=== PATIENT | male | born 1960 | race Caucasian/White ===

== ENCOUNTER 2023-03-20 12:58 | Inpatient (IN) | payer BC, SELFPAY ==
[2023-03-20] VITALS (21 sets, daily range): BP systolic 117–211; BP diastolic 68–135; PULSE 61–93; RESP 15–23; TEMP 36.5–37; O2SAT 95–99; BMI 35.4
--- NOTE | 2023-03-20 13:28 | PC.NURSE ---
arrived by rashida from formerly [facility]
--- NOTE | 2023-03-20 13:37 | PC.NURSE ---
PT ADMITTED TO 219 DIRECT ADMIT, WILL LET MD TURNER KNOW PT IS HERE
--- NOTE | 2023-03-20 14:04 | CA_ITS ---
APPROVED REPORT EXAM: Comprehensive 2D, Doppler, and color-flow Echocardiogram Network Lead: Jory Morton, RCS, RVS Ht: 5 ft 9 in Wt: 239lbs BSA: 2.23 BP: 193/117 mmHg Rhythm: Atrial Fibrillation Indications: New A-fib, Family HX- HD/COPD, HTN, Chest fullness, Chest pressure/ SOA 2D Dimensions Left Atrium 4.20 cm M: 3.0 - 4.0 M-Mode Dimensions RVDd 2.98 cm (0.9-2.6) LA Diam 4.51 cm (1.9-4.0) LVDd 5.54 cm (3.5-5.7) LVDs 3.02 cm (3.5-5.7) IVSd 1.15 cm (0.6-1.1) PWd 1.24 cm (0.6-1.1) EF (Teich) 55.00% EPSs 0.60 cm FS 45.50% EDV (Teich) 149.90 mL ESV (Teich) 35.60 mL LV Diastology E Decel Time 203 (160-240 msec) E/A Ratio 2.77 MED A' 8.40 cm/s LAT A' 11.90 cm/s Aortic Valve SEJAL Index 0.54 cm2/m2 AoV Peak Sheldon. 113.0 (50-130 cm/s) AO Peak GR. 5.10 mmHg AO Mean GR. 2.50 (<5 mmHg) AO VTI 21.3 (18-25 cm) SEJAL (VTI) 1.23 (2.5-4.5 cm2) Mitral Valve MV A Velocity 31.0 (40-130 cm/s) E/A Ratio 2.77 Tricuspid Valve TR P. Velocity 243.00 cm/s RAP Estimate 10.00 mmHg RVSP 33.60 mmHg Left Ventricle The left ventricle is normal size. The left ventricular systolic function is low normal. There is increased LV wall thickness. There is borderline global hypokinesis present. Diastolic function is indeterminate due to atrial fibrillation. LVEF is 50%. Right Ventricle The right ventricle is mildly to moderately dilated. Right ventricle is mildly hypokinetic. Atria Left atrium is moderately dilated. Right atrium is mildly dilated. There is no Doppler evidence of interatrial shunt. Aortic Valve The aortic valve opens well. There is no aortic valvular stenosis. No aortic regurgitation is present. Mitral Valve The mitral valve is normal in structure. No evidence of mitral valve stenosis. Trace mitral regurgitation. Tricuspid Valve The tricuspid valve leaflets are thin and pliable. Mild tricuspid regurgitation. RVSP is 21 mmHg + RA pressure. Pulmonic Valve The pulmonary valve is normal in structure. Mild pulmonic regurgitation. Great Vessels The aortic root is normal in size. The ascending aorta is normal in size. The IVC is not well-visualized. Pericardium There is no pericardial effusion. Other Information Study Quality: Fair Conclusion Low normal LV systolic function (LVEF 50%). Mild to moderate RV dilation with mild reduction in RV systolic function. Biatrial dilation. Mild TR. Electronically signed by : Casandra Valdez MD 03/20/2023 15:50:37
--- NOTE | 2023-03-20 14:24 | P.CONCA_ITS ---
History of Present Illness History of Present Illness Consult date: 03/20/23 Requesting physician: Kirk Carranza Consult reason: chest pain Chief complaint: Chest pain History of present illness: 62-year-old white male who denies past medical history presented to [facility] emergency department with complaints of chest pain and elevated blood pressure. Patient reports he has not felt well all day which prompted him to check his blood pressure at [facility] which was significantly elevated. Reports mild chest discomfort today. Patient went to PCP office for chest pain and elevated blood pressure and was sent to [facility] emergency department. Upon arrival to emergency department patient was noted to be in A-fib rate controlled at a rate of 70. Patient denies history of confirmed A-fib but reports thinks heart rhythm has been irregular for months. Upon presentation to [facility] emergency department D-dimer was elevated at 618 and high- sensitivity troponin was elevated at 512. Patient was loaded with aspirin and given Lovenox subq and transferred to [facility] for further evaluation for NSTEMI and new onset A-fib. BP remains elevated with systolic > 168. Denies current chest pain or soa. [facility] Disclaimer: The information contained in this section may have been updated after the patient was seen, as this information can be updated by other users. Medical History (Updated 03/20/23 @ 14:48 by Yola Martini APRN) Dupuytren's contracture of both hands Peyronie's disease Social History Smoking Status: Unknown if ever smoked alcohol intake: never current occupational status: employed Travel in the last 8 weeks: Inside the [place] [facility] Review of Systems Constitutional Constitutional: Reports weakness *Cardiovascular Cardiovascular: Reports chest pain *Neurologic Neurologic: Reports weakness Exam Data for Last 24 hours Vital signs and Labs for Last 24 Hours: Temp Pulse Resp BP Pulse Ox O2 Del Method 98.6 F 73 18 168/121 H 99 Room Air 03/20/23 13:43 03/20/23 13:43 03/20/23 13:43 03/20/23 13:43 03/20/23 13:43 03/20/23 13:43 I & O for Last 24 hours: Intake & Output 03/17/23 03/18/23 03/19/23 03/20/23 23:59 23:59 23:59 23:59 Weight 239 lb 8 oz *Routine Cardiovascular Exam Comments: afib, rate controlled 70s Meds Home Medications and Allergies New Prescriptions to Start Prescriptions: Allergies Allergy/AdvReac Type Severity Reaction Status Date / Time No Known Allergies Allergy Verified 03/20/23 14:51 Assessment and Plan *Assessment and plan (1) Chest pain: Status: Acute Category: Medical Code(s): R07.9 - Chest pain, unspecified (2) NSTEMI (non-ST elevated myocardial infarction): Status: Acute Category: Medical Code(s): I21.4 - Non-ST elevation (NSTEMI) myocardial infarction (3) New onset a-fib: Status: Acute Category: Medical Code(s): I48.91 - Unspecified atrial fibrillation (4) HTN (hypertension): Status: Acute Category: Medical Code(s): I10 - Essential (primary) hypertension (5) HLD (hyperlipidemia): Status: Acute Category: Medical Code(s): E78.5 - Hyperlipidemia, unspecified (6) Elevated d-dimer: Status: Acute Category: Medical Code(s): R79.89 - Other specified abnormal findings of blood chemistry Plan Chest pain NSTEMI -High-sensitivity troponin at [facility] ED was 512 -Repeat troponin pending -Will proceed with left heart catheterization 03/21/2023. Discussed risk versus benefits with patient he is agreeable. -Patient was loaded with aspirin and given Lovenox prior to transfer to [facility]. Will continue Lovenox 1 mg/kg twice daily and aspirin 81 mg p.o. daily. Start high-dose statin -Echocardiogram is pending Elevated D-dimer -D-dimer 618.6 -Will obtain CTA of chest to rule out PE New onset A-fib Judah Vascore 1 -currently rate controlled -Will consider V[place]IE cardioversion status post left heart catheterization -Echocardiogram is pending Hypertension -168/121 -Start nitro drip Hyperlipidemia -High-dose statin CV summary 03/20/2023: Start nitroglycerin drip for hypertension. Will proceed with left heart catheterization in the morning to further evaluate NSTEMI. Will consider VIR[place]IE cardioversion after heart catheterization for A-fib. CTA chest pending.
[2023-03-20] MEDS: NITROGLYCERIN IN 5 % DEXTROSE 250 ML 6 MG IV (14:42)
--- NOTE | 2023-03-20 14:51 | CT_ITS ---
PROCEDURE INFORMATION: Exam: CTA Chest With Contrast Exam date and time: 03/20/2023 5:33 PM Age: 62 years old Clinical indication: Pain and abnormal findings; Abnormal diagnostic tests; Elevated d-dimer; Other: Cp; Other: Chest pain; Additional info: Elevate d dimer, chest pain TECHNIQUE: Imaging protocol: Computed tomographic angiography of the chest with contrast. Exam focused on the arteries. 3D rendering (Not supervised by radiologist): MIP and/or 3D reconstructed images were created by the technologist. Radiation optimization: All CT scans at this facility use at least one of these dose optimization techniques: automated exposure control; mA and/or kV adjustment per patient size (includes targeted exams where dose is matched to clinical indication); or iterative reconstruction. Contrast material: ISOVUE 370; Contrast volume: 75 ml; Contrast route: INTRAVENOUS (IV); REPORTING DATA: Count of CT and Cardiac NM exams in prior 12 months: This patient has received 0 known CTs and 0 known cardiac nuclear medicine studies in the 12 months prior to the current study. COMPARISON: No relevant prior studies available. FINDINGS: Pulmonary arteries: No large central pulmonary emboli. Assessment of the small peripheral basilar subsegmental branches was nondiagnostic due to gross respiratory motion in this region. Aorta: Mild aneurysmal dilatation of the ascending aortic segment at 4.3 cm diameter. No dissection or rupture. No mediastinal hematoma. Thyroid: The visualized thyroid gland demonstrates no gross abnormality. Lungs: No acute tracheobronchial abnormalities. No gross pulmonary infiltrates or edema pattern. Mild atelectasis in the lung bases. Noncalcified pulmonary nodule in the posterior right apex series 5, image 20 measuring up to 6.3 mm. 5 mm juxtapleural noncalcified pulmonary nodule lateral right apex series 5, image 33. For patients at low risk (minimal or absent history of smoking and of other known risk factors), recommend CT at 3-6 months, then consider CT at 18-24 months. For patients at high risk (history of smoking or of other known risk factors), recommend CT at 3-6 months, then CT at 18-24 months. (Cami et al., Fleischner Society, 2017). Pleural spaces: No pleural effusion. No pneumothorax. Heart: Mild-moderate cardiomegaly. Mild coronary artery calcification. No pericardial effusion. Lymph nodes: No supraclavicular or axillary adenopathy. No mediastinal or hilar adenopathy. Diaphragm: Small hiatal hernia. Mild mid to distal esophageal wall thickening suspicious for esophagitis. Consider nonemergent esophagram or endoscopic assessment as clinically indicated. Spleen: Granulomatous calcifications in the spleen without acute splenic abnormality. Bones/joints: No acute osseous abnormalities are identified. Mild thoracic spondylosis. Soft tissues: The soft tissues of the chest wall demonstrate no acute abnormality. IMPRESSION: 1. No large central pulmonary emboli. Assessment of the small basilar subsegmental branch vessels was nondiagnostic due to gross respiratory motion in this region. 2. Small hiatal hernia with mild mid to distal esophageal wall thickening suspicious for esophagitis. Consider nonemergent esophagram or endoscopic assessment as clinically indicated. 3. Mild aneurysmal dilatation of the ascending aorta at 4.3 cm diameter. No dissection or rupture. 4. Mild-moderate cardiomegaly with mild coronary artery calcification. 5. There are 2 noncalcified pulmonary nodules, largest 6.3 mm. Please see follow-up recommendations above.
--- NOTE | 2023-03-20 15:00 | PC.NURSE ---
RADIOLOGY CALLED THIS RN AND STATED NEEDED KIDNEY FUNCTION LABS PRIOR TO OBTAINING CT SCAN; THIS RN ORDERED LABS AND WILL AWAIT RESULT AND THEN TAKE PT TO CT SCAN
[2023-03-20 15:10] LABS: Basophils # 0.1 K/mm3 (0-0.2); Basophils % 0.7 % (0.1-2.0); Eosinophils # 0.1 K/mm3 (0.0-0.4); Eosinophils % 1.2 % (0.1-12.0); Hematocrit 46.9 % (42.0-52.0); Hemoglobin 16.3 g/dL (14.1-18.0); Lymphocytes # 2.6 K/mm3 (0.7-4.5); Lymphocytes % 30.2 % (10-50); Mean Corpuscular HGB Conc 34.8 g/dL (31.8-35.4); Mean Corpuscular Hemoglobin 30.6 pg (27.0-31.2); Mean Platelet Volume 8.1 fl (7.4-10.4); Monocytes # 0.4 K/mm3 (0.1-1.0); Monocytes % 4.7 % (1.7-9.3); Neutrophils # 5.4 K/mm3 (1.8-7.8); Neutrophils % 63.2 % (37.0-80.0); Platelet Count 211 K/mm3 (142-424); Red Blood Count 5.33 M/mm3 (4.60-6.20); Red Cell Distribution Width 13.5 % (11.5-17.5); White Blood Count 8.6 K/mm3 (4.8-10.8)
--- NOTE | 2023-03-20 15:10 | ECG_ITS ---
APPROVED REPORT Exam: Resting ECG HR:72 bpm ECG Measurements Heart Rate 72 AXES QRSd 102 QRS -34 QT 419 T 6 QTc 444 Conclusion ATRIAL FIBRILLATION LEFT AXIS DEVIATION [QRS AXIS < -30] LOW QRS VOLTAGE IN PRECORDIAL LEADS [QRS DEFLECTION < 1.0 mV IN CHEST LEADS] INCOMPLETE RIGHT BUNDLE BRANCH BLOCK [90+ ms QRS DURATION, TERMINAL R IN V1/V2, 40+ ms S IN I/aVL/V4/V5/V6] POSSIBLE ANTERIOR MYOCARDIAL INFARCTION , PROBABLY OLD [30 ms Q WAVE IN V3/V4, OR R < 0.2 mV IN V4] ABNORMAL ECG UNCONFIRMED REPORT Electronically signed by : Imtiaz Fernandez MD 03/20/2023 23:02:05
--- NOTE | 2023-03-20 15:13 | P.HP_ITS ---
History of Present Illness *Admission Date: 03/20/23 *Reason for visit:: chest pressure, HTN *History of present illness: Mr. Oliveira is a 62-year-old male on no medications at home. He presented to the ER at [facility] due to complaint of chest pain and elevated blood pressure. He checked his blood pressure at [facility] today and found it to be above the threshold of the kiosk. Reports he has been having some mild chest discomfort today. On arrival to the ER at [place] was found to be in A-fib with a rate controlled in the 60s and 70s. Blood pressure severely elevated. Noted to have elevated troponin. Cardiology and medicine were contacted for transfer for further management. Initial troponin at [place] was 512, D-dimer elevated at 618. Treated with a dose lisinopril, Lasix, Nitropaste at [place]. Loaded with 80 mg of Lovenox and aspirin. Patient accepted for transfer. On arrival, he denies any nausea or vomiting. No shortness of breath. Cardiology consulted to assist with management. Blood pressure elevated on initial vitals at [facility] with systolic above 160. EKG reviewed showing A-fib with rate control [facility] Disclaimer: The information contained in this section may have been updated after the patient was seen, as this information can be updated by other users. Medical History Dupuytren's contracture of both hands Peyronie's disease Social History Smoking Status: Unknown if ever smoked alcohol intake: never current occupational status: employed Travel in the last 8 weeks: Inside the [place] Review of Systems Review of Systems Review of systems (narrative): 14 point review of systems performed, pertinent positives and negatives as per HPI Constitutional Constitutional: Reports weakness *Neurologic Neurologic: Reports weakness Meds Home Medications and Allergies New Prescriptions to Start Prescriptions: Allergies Allergy/AdvReac Type Severity Reaction Status Date / Time No Known Allergies Allergy Verified 03/20/23 14:51 Exam Data for Last 24 hours Vital signs and Labs for Last 24 Hours: Temp Pulse Resp BP Pulse Ox O2 Del Method 98.6 F 73 18 168/121 H 96 Room Air 03/20/23 13:43 03/20/23 13:43 12/27/23 13:43 03/20/23 13:43 03/20/23 14:15 03/20/23 14:47 Laboratory Results - last 24 hr 03/20/23 14:30: WBC 8.6, RBC 5.33, Hgb 16.3, Hct 46.9, MCV 88.0, MCH 30.6, MCHC 34.8, RDW 13.5, Plt Count 211, MPV 8.1, Neut % (Auto) 63.2, Lymph % (Auto) 30.2, [place] % (Auto) 4.7, Eos % (Auto) 1.2, Baso % (Auto) 0.7, Neut # (Auto) 5.4, Lymph # (Auto) 2.6, [place] # (Auto) 0.4, Eos # (Auto) 0.1, Baso # (Auto) 0.1 I & O for Last 24 hours: Intake & Output 03/17/23 03/18/23 03/19/23 03/20/23 23:59 23:59 23:59 23:59 Weight 108.635 kg Constitutional Constitutional: no acute distress, obese and cooperative *Routine HEENT Exam Head: Present normocephalic Eye: Present EOMI and PERRL ENT: Present mucous membranes moist *Routine Neck Exam Neck: Present supple; Absent lymphadenopathy Routine Chest/Breast/Axilla Exam Chest wall: Absent tenderness *Routine Respiratory Exam Respiratory: Present CTA bilaterally *Routine Cardiovascular Exam Cardiovascular: Present irregularly irregular Comments: Rate controlled *Routine Abdominal Exam Abdominal: Present soft and normoactive bowel sounds; Absent tenderness *Routine Rectal Exam Rectal:: deferred *Routine Genitalia Exam Genitalia:: deferred *Routine Extremities Exam Extremities: Absent cyanosis, clubbing or edema *Routine Skin Exam Skin: Present warm; Absent rash *Routine Neurological Exam Neurological: Present alert, oriented X3 and moving all extremities; Absent altered mental status Assessment and Plan *Assessment and plan (1) New onset a-fib: Status: Acute Category: Medical Code(s): I48.91 - Unspecified atrial fibrillation (2) NSTEMI (non-ST elevated myocardial infarction): Status: Acute Category: Medical Code(s): I21.4 - Non-ST elevation (NSTEMI) myocardial infarction (3) Chest pain: Status: Acute Category: Medical Code(s): R07.9 - Chest pain, unspecified (4) HLD (hyperlipidemia): Status: Acute Category: Medical Code(s): E78.5 - Hyperlipidemia, unspecified (5) HTN (hypertension): Status: Acute Category: Medical Code(s): I10 - Essential (primary) hypertension Plan 62-year-old male who presented to [facility] with hypertension and chest discomfort. Found to be in A-fib with NSTEMI. Discussed case with ER physician, requested transfer for cardiology eval and further management. Medicine agreed to admit for further management. Problems addressed as follows: NSTEMI New onset A-fib -Cardiology consulted, appreciate their assistance in care. -Troponin elevated at [place] at 512. Repeat troponin obtained at [facility], elevated at 0.38, 3 and 6-hour troponin pending. EKG obtained showing rate controlled A-fib. Given elevated D-dimer, CTA obtained with no PEs noted. Findings as follows however: Small hiatal hernia with distal esophageal wall thickening. Mild aneurysmal dilatation of ascending aorta at 4.3 cm, no rupture or dissection. Mild to moderate cardiomegaly. Will need further eval with EGD and monitoring of aortic aneurysm. - Echo obtained showing EF 50%, mild to moderate RV dilation with mild reduction in RV systolic function. Biatrial dilatation. -Discussed case with cardiology, recommending left heart cath in the morning on 03/21. -Patient loaded with aspirin and Lovenox at [place]. Will continue Lovenox 1 mg/kg twice daily and aspirin 81 mg daily. -Initiate Lipitor 80 mg daily -Lipid panel pending for the more -A1c and TSH pending Hypertension -168/121, started on nitro drip. Blood pressure showing improvement. Patient developing headache, treated with Tylenol and ibuprofen. If no improvement will consider morphine 2 mg every 4 hours as needed IV, monitor for toxicity Class II obesity complicates all aspects of his care Full code Therapeutic Lovenox Cardiac diet, n.p.o. at midnight
[2023-03-20 15:24] LABS: Troponin I 0.38 ng/ml (0.00-0.034)
[2023-03-20 16:05] LABS: Alanine Aminotransferase 23 U/L (12-78); Albumin Level 4.6 g/dl (3.5-5.0); Albumin/Globulin Ratio 1.5 (1.1-1.8); Alkaline Phosphatase 98 U/L (38-126); Anion Gap 11.8 mEq/L (5-15); Aspartate Amino Transferase 32 U/L (17-59); Bilirubin,Total 0.8 mg/dl (0.2-1.3); Blood Urea Nitrogen 15 mg/dl (9-20); Calcium 8.6 mg/dl (8.4-10.2); Carbon Dioxide 26 mmol/L (22.0-30.0); Chloride 103 mmol/L (98-107); Creatinine Clearance Estimated 108 mL/min (50-200); Estimated Glomerular Filt Rate 68 ml/min (>60); GFR (African American) 82 ML/MIN (>60); Glucose 80 mg/dl (74-100); Potassium 3.8 mmoL/L (3.5-5.1); Sodium 137 mmol/L (136-145); Total Protein,Serum 7.6 g/dl (6.3-8.2)
--- NOTE | 2023-03-20 16:18 | HMH.PHAINT1 ---
Pharmacy Intervention Comments: Spoke with patient and daughter at bedside to verify home med list, patient states he does not take anything at home.
[2023-03-20] MEDS: ACETAMINOPHEN 325MG TAB 650 MG PO (16:45)
[2023-03-20] MEDS: 0.9 % SODIUM CHLORIDE 50 ML VIAL IV (17:33)
[2023-03-20] MEDS: IOPAMIDOL-370 (76%);100ML BOTTLE 75 ML IV (17:34)
[2023-03-20] MEDS: SODIUM CHLORIDE 0.9% 10ML SYR (RAD ONLY) 10 ML IV (17:34)
[2023-03-20] MEDS: IBUPROFEN 600 MG TABLET PO (17:44)
[2023-03-20] MEDS: MORPHINE 2MG/ML SYRINGE 2 MG IV (18:57)
[2023-03-20] MEDS: ONDANSETRON 4MG/2ML VIAL 4 MG IV (19:01)
[2023-03-20] MEDS: ENOXAPARIN 120MG/0.8ML SYRINGE 110 MG SQ (20:18)
[2023-03-20] MEDS: ATORVASTATIN 40MG TABLET 80 MG PO (20:18)
--- NOTE | 2023-03-20 21:12 | PC.NURSE ---
Nitro gtt paused at this time due to BP 117/68
[2023-03-20 21:21] LABS: Troponin I 0.26 ng/ml (0.00-0.034)
[2023-03-21] VITALS (27 sets, daily range): BP systolic 114–163; BP diastolic 74–104; PULSE 55–86; RESP 16–24; TEMP 36.4–36.8; O2SAT 92–98; BMI 35.5
--- NOTE | 2023-03-21 07:16 | IR_ITS ---
APPROVED REPORT Patient Location: Inpatient PROCEDURES Left heart catheterization Left ventriculogram Selective coronary angiogram INDICATION Acute non-ST elevation myocardial infarction Informed consent was obtained prior to the procedure. COMPLICATIONS NONE Estimated Blood Loss: LESS THAN 10 ML TECHNIQUE One percent lidocaine used to anesthetize the right anterior aspect of the wrist. The right radial artery was accessed via the Seldinger technique. A 6 Citizen Of [place] sheath was placed in the right radial artery. 2.5 mg of Verapamil, 800 mcg of nitroglycerin, 1mg Lidocaine and 5000 U Heparin were given through the arterial sheath. The papa catheter was also used to perform left heart catheterization, left ventriculogram and selective coronary angiogram. At the end of the procedure the sheath was removed good hemostasis was achieved using Traclet band, patient was transferred to the postop holding area in stable condition. ANGIOGRAPHIC RESULTS The left main artery Has a distal 60 to 70% stenosis The left anterior descending artery Has a proximal focal concentric 90% stenosis. The mid LAD has additional 40% stenoses. A small to medium sized first diagonal artery has a proximal 80% stenosis The circumflex artery Is dominant and has an ostial 70% followed by a concentric proximal 90% stenosis. Distal to the first obtuse marginal artery there is an additional 80% stenosis. The terminal obtuse marginal artery has proximal 70% stenosis The right coronary artery Vestigial with diffuse 70% stenoses The RAE ventriculogram reveals Normal 65% The left ventricular end-diastolic pressure 10 to 15 mmHg IMPRESSION Critical coronary disease as described above Normal ejection fraction Normal LVEDP PLAN 1. Start on high intensity statin along with aspirin 81 mg daily 2. Heparin drip to be started and continued throughout the preoperative course 3. Rate control starting low-dose beta-blockers 4. Recommend nitroglycerin drip for blood pressure control 5. Transfer to [facility] for coronary artery bypass surgery and Maze procedure 6. I have already made contact with CT surgery [facility] and transfer plans are currently underway Electronically signed by : Zbigniew Torres MD 03/21/2023 13:02:45
[2023-03-21 07:18] LABS: Basophils % 0.5 % (0.1-2.0); Eosinophils # 0.1 K/mm3 (0.0-0.4); Eosinophils % 1.3 % (0.1-12.0); Hematocrit 43.9 % (42.0-52.0); Hemoglobin 15.2 g/dL (14.1-18.0); Lymphocytes # 2.4 K/mm3 (0.7-4.5); Lymphocytes % 33.3 % (10-50); Mean Corpuscular HGB Conc 34.6 g/dL (31.8-35.4); Mean Corpuscular Hemoglobin 31.1 pg (27.0-31.2); Mean Corpuscular Volume 89.9 fl (80-94); Mean Platelet Volume 7.9 fl (7.4-10.4); Monocytes # 0.5 K/mm3 (0.1-1.0); Monocytes % 6.2 % (1.7-9.3); Neutrophils # 4.3 K/mm3 (1.8-7.8); Neutrophils % 58.8 % (37.0-80.0); Platelet Count 167 K/mm3 (142-424); Red Blood Count 4.89 M/mm3 (4.60-6.20); Red Cell Distribution Width 13.7 % (11.5-17.5); White Blood Count 7.3 K/mm3 (4.8-10.8)
[2023-03-21 07:23] LABS: Chloride 102 mmol/L (98-107); Potassium 3.6 mmoL/L (3.5-5.1); Sodium 139 mmol/L (136-145)
[2023-03-21 07:26] LABS: Alanine Aminotransferase 21 U/L (12-78); Albumin Level 4.1 g/dl (3.5-5.0); Albumin/Globulin Ratio 1.4 (1.1-1.8); Alkaline Phosphatase 83 U/L (38-126); Anion Gap 10.6 mEq/L (5-15); Aspartate Amino Transferase 31 U/L (17-59); Bilirubin,Total 0.8 mg/dl (0.2-1.3); Blood Urea Nitrogen 16 mg/dl (9-20); Calcium 8.4 mg/dl (8.4-10.2); Carbon Dioxide 30 mmol/L (22.0-30.0); Cholesterol 238 mg/dl (140-200); Creatinine Clearance Estimated 99 mL/min (50-200); Estimated Glomerular Filt Rate 62 ml/min (>60); GFR (African American) 74 ML/MIN (>60); Globulin 2.9 g/dL (1.3-3.2); Glucose 88 mg/dl (74-100); HDL Cholesterol 40 mg/dl (40-60); Triglycerides 284 mg/dl (30-150); VLDL Cholesterol 57 mg/dL (0-40)
[2023-03-21 07:27] LABS: Magnesium 2.4 mg/dl (1.6-2.3)
[2023-03-21 07:36] LABS: Direct LDL Cholesterol 127.67 mg/dL (100-129)
[2023-03-21 07:56] LABS: Thyroid Stimulating Hormone 0.89 uIU/mL (0.465-4.68)
[2023-03-21] MEDS: ASPIRIN EC 81MG TABLET 81 MG PO (08:12)
--- NOTE | 2023-03-21 09:09 | P.PN_ITS ---
Subjective Subjective Date: 03/21/23 Time: 08:15 Principal diagnosis: nstemi, afib Interval history: Patient doing well this morning. Denies chest pain or shortness of breath. Blood pressure is 134/81 patient is currently off nitro drip. Morning labs reviewed, echocardiogram reviewed. Patient remains in A-fib rate controlled in the 60s. Exam Data for Last 24 hours Vital signs and Labs for Last 24 Hours: Temp Pulse Resp BP Pulse Ox O2 Del Method 97.9 F 61 18 134/81 98 Room Air 03/21/23 08:00 03/21/23 07:30 03/21/23 07:30 03/21/23 07:30 03/21/23 07:30 03/21/23 07:30 Laboratory Results - last 24 hr 03/20/23 14:30: WBC 8.6, RBC 5.33, Hgb 16.3, Hct 46.9, MCV 88.0, MCH 30.6, MCHC 34.8, RDW 13.5, Plt Count 211, MPV 8.1, Neut % (Auto) 63.2, Lymph % (Auto) 30.2, [place] % (Auto) 4.7, Eos % (Auto) 1.2, Baso % (Auto) 0.7, Neut # (Auto) 5.4, Lymph # (Auto) 2.6, [place] # (Auto) 0.4, Eos # (Auto) 0.1, Baso # (Auto) 0.1, Sodium 137, Potassium 3.8, Chloride 103, Carbon Dioxide 26, Anion Gap 11.8, BUN 15, Creatinine 1.10, Estimated Creat Clear 108, Estimated GFR 68, Est GFR ( Amer) 82, Glucose 80, Calcium 8.6, Total Bilirubin 0.8, AST 32, ALT 23, Alkaline Phosphatase 98, Troponin I 0.38 H, Total Protein 7.6, Albumin 4.6, Globulin 3.0, Albumin/Globulin Ratio 1.5 03/20/23 17:53: Troponin I 0.30 H 03/20/23 20:15: Troponin I 0.26 H 03/21/23 06:23: WBC 7.3, RBC 4.89, Hgb 15.2, Hct 43.9, MCV 89.9, MCH 31.1, MCHC 34.6, RDW 13.7, Plt Count 167, MPV 7.9, Neut % (Auto) 58.8, Lymph % (Auto) 33.3, [place] % (Auto) 6.2, Eos % (Auto) 1.3, Baso % (Auto) 0.5, Neut # (Auto) 4.3, Lymph # (Auto) 2.4, [place] # (Auto) 0.5, Eos # (Auto) 0.1, Baso # (Auto) 0.0, Sodium 139, Potassium 3.6, Chloride 102, Carbon Dioxide 30, Anion Gap 10.6, BUN 16, Creatinine 1.20, Estimated Creat Clear 99, Estimated GFR 62, Est GFR ( Amer) 74, Glucose 88, Hemoglobin A1c 5.0, Calcium 8.4, Magnesium 2.4 H, Total Bilirubin 0.8, AST 31, ALT 21, Alkaline Phosphatase 83, Total Protein 7.0, Albumin 4.1 D, Globulin 2.9, Albumin/Globulin Ratio 1.4, Triglycerides 284 H, Cholesterol 238 H, LDL Cholesterol Direct 127.67, VLDL Cholesterol 57 H, HDL Cholesterol 40, Cholesterol/HDL Ratio 6.0 H, TSH 0.89 I & O for Last 24 hours: Intake & Output 03/18/23 03/19/23 03/20/23 03/21/23 23:59 23:59 23:59 23:59 Intake Total 307.950 / 307.950 Output Total 0 / 0 0 / 0 Balance 307.950 / 307.950 0 / 0 Weight 239 lb 8 oz 239 lb 14.4 oz Constitutional Constitutional: no acute distress *Routine Respiratory Exam Respiratory: Present CTA bilaterally and symmetric chest movement *Routine Cardiovascular Exam Cardiovascular: Present Normal S1, Normal S2, irregular rhythm and irregularly irregular *Routine Abdominal Exam Abdominal: Present soft and normoactive bowel sounds; Absent tenderness *Routine Extremities Exam Extremities: Present full ROM and normal capillary refill; Absent edema *Routine Skin Exam Skin: Present intact, dry and warm Detailed Neck Exam: Thyroids Thyroid: Absent bruit Progress Note: A&P Assessment and plan (1) New onset a-fib: Status: Acute (2) NSTEMI (non-ST elevated myocardial infarction): Status: Acute (3) Chest pain: Status: Acute (4) HLD (hyperlipidemia): Status: Acute (5) HTN (hypertension): Status: Acute Assessment and Plan Assessment and Plan for All Diagnoses:: Chest pain NSTEMI -High-sensitivity troponin at [facility] ED was 512 -Repeat troponin at [facility] peaked at0.38 -Will proceed with left heart catheterization today. Discussed risk versus benefits with patient he is agreeable. -Patient was loaded with aspirin and given Lovenox prior to transfer to [facility]. Will continue Lovenox 1 mg/kg twice daily and aspirin 81 mg p.o. daily. Continue high-dose statin -Echocardiogram 03/20/2023: Low normal LV systolic function EF 50%, mild to moderate RV dilation with mild reduction in RV systolic function, biatrial dilation, mild to Elevated D-dimer -D-dimer 618.6 -CTA: No large central pulmonary emboli. Assessment of the small basilar subsegmental branch vessels was nondiagnostic due to gross respiratory motion in this region. Currently receiving Lovenox at 1 mg/kg twice daily. New onset A-fib [place] Vascore 1 -currently rate controlled -Will consider [place] cardioversion status post left heart catheterization Hypertension-improving -130/84 -Currently off nitro drip Hyperlipidemia -High-dose statin CV summary 03/20/2023: We will proceed with left heart catheterization today for evaluation of NSTEMI.
[2023-03-21] MEDS: HEPARIN 1,000 UNITS/ML 10ML VIAL (CATH LAB) 10000 UNIT IV (12:32)
[2023-03-21] MEDS: LIDOCAINE 1% 10ML MDV 20 ML IJ (12:32)
[2023-03-21] MEDS: HEPARIN 1,000 UNITS/500ML NS (CATH LAB) 3000 UNIT IV (12:32)
[2023-03-21] MEDS: diphenhydrAMINE 50MG/ML VIAL 50 MG IV (12:32)
[2023-03-21] MEDS: NITROGLYCERIN 800MCG/8ML SYR (CATH LAB) 800 MCG IA (12:32)
[2023-03-21] MEDS: 0.9 % SODIUM CHLORIDE 500 ML 25 ML IV (12:32)
[2023-03-21] MEDS: VERAPAMIL 2.5MG/ML 2ML VIAL 2.5 MG IV (12:33)
[2023-03-21] MEDS: FENTANYL 100MCG/2ML VIAL 50 MCG IV (12:40)
[2023-03-21] MEDS: MIDAZOLAM HCL 1MG/1ML 5ML VIAL 1 MG IV (12:40)
--- NOTE | 2023-03-21 12:54 | PC.NURSE ---
RECEIVED REPORT FROM MIKE SWEENEY IN THE [employer]
--- NOTE | 2023-03-21 13:05 | PC.NURSE ---
[id number] notified by roofing laborer that pt is to be shipped to for CABG. Dr Lilly is accepting. Called and notified Yola in cardiology that pt is to be transferred, per Yola cancel ariana with cardioversion.
--- NOTE | 2023-03-21 13:07 | PC.NURSE ---
[id number] hold tammy alvarez
[2023-03-21] MEDS: IOPAMIDOL-370 (76%);100ML BOTTLE 50 ML IV (13:08)
--- NOTE | 2023-03-21 13:24 | EXP.DC.SUM ---
General Admission date:: 03/20/23 Discharge date: 03/21/23 HPI HPI HPI: Mr. Oliveira is a 62-year-old male on no medications at home. He presented to the ER at [facility] due to complaint of chest pain and elevated blood pressure. He checked his blood pressure at [facility] today and found it to be above the threshold of the kiosk. Reports he has been having some mild chest discomfort today. On arrival to the ER at [place] was found to be in A-fib with a rate controlled in the 60s and 70s. Blood pressure severely elevated. Noted to have elevated troponin. Cardiology and medicine were contacted for transfer for further management. Initial troponin at [place] was 512, D-dimer elevated at 618. Treated with a dose lisinopril, Lasix, Nitropaste at [place]. Loaded with 80 mg of Lovenox and aspirin. Patient accepted for transfer. On arrival, he denies any nausea or vomiting. No shortness of breath. Cardiology consulted to assist with management. Blood pressure elevated on initial vitals at [facility] with systolic above 160. EKG reviewed showing A-fib with rate control Hospital Course Hospital Course Hospital Course: 62-year-old male who presented to [facility] with hypertension and chest discomfort. Found to be in A-fib with NSTEMI. Discussed case with ER physician, requested transfer for cardiology eval and further management. Medicine agreed to admit for further management. Taken for left heart cath on 03/21. Found to have critical two-vessel disease. Necessitate transfer to higher level of care for CABG. excepted patient. Problems addressed during hospitalization as follows: NSTEMI New onset A-fib Hypertension CAD -Cardiology consulted, appreciate their assistance in care. Troponin elevated at [place] at 512. Repeat troponin obtained at [facility], elevated at 0.38 on admission. Trended down to 0.26 by 6-hour troponin. EKG obtained showing rate controlled A-fib. Was started on nitroglycerin drip due to hypertension. Patient was taken for left heart cath on 03/21 with the following findings: IMPRESSION Critical coronary disease as described above Normal ejection fraction Normal LVEDP Patient was initiated on heparin drip and resume nitroglycerin drip. Cardiology consulted CT surgery at for assistance in care. Patient to be transferred for further management including CABG and possible maze procedure. Continued on high intensity statin and aspirin. Given elevated D-dimer, CTA obtained with no PEs noted. Findings as follows however: Small hiatal hernia with distal esophageal wall thickening. Mild aneurysmal dilatation of ascending aorta at 4.3 cm, no rupture or dissection. Mild to moderate cardiomegaly. Will need further eval with EGD and monitoring of aortic aneurysm. Echo obtained showing EF 50%, mild to moderate RV dilation with mild reduction in RV systolic function. Biatrial dilatation. Lipid panel obtained during admission showing LDL of 127. A1c obtained at 5.0 and TSH is 0.89. Patient stable for discharge to for further management with CT surgery. Necessitating CABG. Appreciate 's assistance in care. Spent 40 minutes in discharge counseling, documentation, discussion with subspecialist, and direct care with patient. Exam Data for Last 24 hours Vital signs and Labs for Last 24 Hours: Temp Pulse Resp BP Pulse Ox O2 Del Method 97.9 F 70 20 147/101 H 94 L Room Air 03/21/23 11:38 03/21/23 13:05 03/21/23 13:05 03/21/23 13:05 03/21/23 13:05 03/21/23 13:05 Laboratory Results - last 24 hr 03/20/23 14:30: WBC 8.6, RBC 5.33, Hgb 16.3, Hct 46.9, MCV 88.0, MCH 30.6, MCHC 34.8, RDW 13.5, Plt Count 211, MPV 8.1, Neut % (Auto) 63.2, Lymph % (Auto) 30.2, [place] % (Auto) 4.7, Eos % (Auto) 1.2, Baso % (Auto) 0.7, Neut # (Auto) 5.4, Lymph # (Auto) 2.6, [place] # (Auto) 0.4, Eos # (Auto) 0.1, Baso # (Auto) 0.1, Sodium 137, Potassium 3.8, Chloride 103, Carbon Dioxide 26, Anion Gap 11.8, BUN 15, Creatinine 1.10, Estimated Creat Clear 108, Estimated GFR 68, Est GFR ( Amer) 82, Glucose 80, Calcium 8.6, Total Bilirubin 0.8, AST 32, ALT 23, Alkaline Phosphatase 98, Troponin I 0.38 H, Total Protein 7.6, Albumin 4.6, Globulin 3.0, Albumin/Globulin Ratio 1.5 03/20/23 17:53: Troponin I 0.30 H 03/20/23 20:15: Troponin I 0.26 H 03/21/23 06:23: WBC 7.3, RBC 4.89, Hgb 15.2, Hct 43.9, MCV 89.9, MCH 31.1, MCHC 34.6, RDW 13.7, Plt Count 167, MPV 7.9, Neut % (Auto) 58.8, Lymph % (Auto) 33.3, [place] % (Auto) 6.2, Eos % (Auto) 1.3, Baso % (Auto) 0.5, Neut # (Auto) 4.3, Lymph # (Auto) 2.4, [place] # (Auto) 0.5, Eos # (Auto) 0.1, Baso # (Auto) 0.0, Sodium 139, Potassium 3.6, Chloride 102, Carbon Dioxide 30, Anion Gap 10.6, BUN 16, Creatinine 1.20, Estimated Creat Clear 99, Estimated GFR 62, Est GFR ( Amer) 74, Glucose 88, Hemoglobin A1c 5.0, Calcium 8.4, Magnesium 2.4 H, Total Bilirubin 0.8, AST 31, ALT 21, Alkaline Phosphatase 83, Total Protein 7.0, Albumin 4.1 D, Globulin 2.9, Albumin/Globulin Ratio 1.4, Triglycerides 284 H, Cholesterol 238 H, LDL Cholesterol Direct 127.67, VLDL Cholesterol 57 H, HDL Cholesterol 40, Cholesterol/HDL Ratio 6.0 H, TSH 0.89 I & O for Last 24 hours: Intake & Output 03/18/23 03/19/23 03/20/23 03/21/23 23:59 23:59 23:59 23:59 Intake Total 307.950 / 307.950 Output Total 0 / 0 0 / 0 Balance 307.950 / 307.950 0 / 0 Weight 108.635 kg 108.817 kg Constitutional Constitutional: no acute distress and obese *Routine HEENT Exam Head: Present normocephalic Eye: Present EOMI and PERRL ENT: Present mucous membranes moist *Routine Neck Exam Neck: Present supple; Absent lymphadenopathy *Routine Respiratory Exam Respiratory: Present CTA bilaterally *Routine Cardiovascular Exam Cardiovascular: Present irregularly irregular Comments: rate controlled *Routine Abdominal Exam Abdominal: Present soft and normoactive bowel sounds; Absent tenderness *Routine Extremities Exam Extremities: Absent cyanosis, clubbing or edema *Routine Skin Exam Skin: Present warm; Absent rash *Routine Neurological Exam Neurological: Present alert, oriented X3 and moving all extremities; Absent altered mental status Results Data Completed and Pending Labs on day of discharge: Labs from last 24 hours 03/21/23 03/20/23 03/20/23 06:23 20:15 17:53 WBC 7.3 RBC 4.89 Hgb 15.2 Hct 43.9 MCV 89.9 MCH 31.1 MCHC 34.6 RDW 13.7 Plt Count 167 MPV 7.9 Neut % (Auto) 58.8 Lymph % (Auto) 33.3 [place] % (Auto) 6.2 Eos % (Auto) 1.3 Baso % (Auto) 0.5 Neut # (Auto) 4.3 Lymph # (Auto) 2.4 [place] # (Auto) 0.5 Eos # (Auto) 0.1 Baso # (Auto) 0.0 Sodium 139 Potassium 3.6 Chloride 102 Carbon Dioxide 30 Anion Gap 10.6 BUN 16 Creatinine 1.20 Estimated Creat Clear 99 Estimated GFR 62 Est GFR ( Amer) 74 Glucose 88 Hemoglobin A1c 5.0 Calcium 8.4 Magnesium 2.4 H Total Bilirubin 0.8 AST 31 ALT 21 Alkaline Phosphatase 83 Troponin I 0.26 H 0.30 H Total Protein 7.0 Albumin 4.1 D Globulin 2.9 Albumin/Globulin Ratio 1.4 Triglycerides 284 H Cholesterol 238 H LDL Cholesterol Direct 127.67 VLDL Cholesterol 57 H HDL Cholesterol 40 Cholesterol/HDL Ratio 6.0 H TSH 0.89 03/20/23 14:30 WBC 8.6 RBC 5.33 Hgb 16.3 Hct 46.9 MCV 88.0 MCH 30.6 MCHC 34.8 RDW 13.5 Plt Count 211 MPV 8.1 Neut % (Auto) 63.2 Lymph % (Auto) 30.2 [place] % (Auto) 4.7 Eos % (Auto) 1.2 Baso % (Auto) 0.7 Neut # (Auto) 5.4 Lymph # (Auto) 2.6 [place] # (Auto) 0.4 Eos # (Auto) 0.1 Baso # (Auto) 0.1 Sodium 137 Potassium 3.8 Chloride 103 Carbon Dioxide 26 Anion Gap 11.8 BUN 15 Creatinine 1.10 Estimated Creat Clear 108 Estimated GFR 68 Est GFR ( Amer) 82 Glucose 80 Hemoglobin A1c Calcium 8.6 Magnesium Total Bilirubin 0.8 AST 32 ALT 23 Alkaline Phosphatase 98 Troponin I 0.38 H Total Protein 7.6 Albumin 4.6 Globulin 3.0 Albumin/Globulin Ratio 1.5 Triglycerides Cholesterol LDL Cholesterol Direct VLDL Cholesterol HDL Cholesterol Cholesterol/HDL Ratio TSH DS: Diagnosis Discharge Diagnosis (1) New onset a-fib: Status: Acute Code(s): I48.91 - Unspecified atrial fibrillation (2) NSTEMI (non-ST elevated myocardial infarction): Status: Acute Code(s): I21.4 - Non-ST elevation (NSTEMI) myocardial infarction (3) Chest pain: Status: Acute Code(s): R07.9 - Chest pain, unspecified (4) HLD (hyperlipidemia): Status: Acute Code(s): E78.5 - Hyperlipidemia, unspecified (5) HTN (hypertension): Status: Acute Code(s): I10 - Essential (primary) hypertension (6) CAD (coronary artery disease): Status: Acute Code(s): I25.10 - Atherosclerotic heart disease of [place] coronary artery without angina pectoris Meds Home Medications and Allergies Home Medications Medication Instructions Recorded Confirmed Type IV with Additives 1,400 units/hr IV 03/21/23 Rx IV with Additives 5 mcg/min IV 03/21/23 Rx aspirin 81 mg tablet,delayed 81 mg PO DAILY #0 tabs 03/21/23 Rx release atorvastatin 40 mg tablet 80 mg PO HS #0 tabs 03/21/23 Rx New Prescriptions to Start Prescriptions: IV with Additives Heparin Sodium,Porcine/D5w [Heparin 25,000 units in D5W 500mL premix] 500 ml 1,400 units/hr IV IV with Additives Nitroglycerin in 5 % Dextrose [Nitroglycerin 50mg/250mL D5W] 250 ml 5 mcg/min IV Allergies Allergy/AdvReac Type Severity Reaction Status Date / Time No Known Allergies Allergy Verified 03/20/23 14:51 Discharge Plan Disposition Patient Disposition: Xfer Short-Term Hosp Condition: Serious Follow up Plan Prescriptions/Medication Reconciliation: New aspirin 81 mg Tablet,Delayed Release (Dr/Ec) 81 mg PO DAILY Qty: 0 0RF atorvastatin 40 mg Tablet 80 mg PO HS Qty: 0 0RF IV with Additives Heparin Sodium,Porcine/D5w [Heparin 25,000 units in D5W 500mL premix] 500 ML 1400 units/hr IV Ordered By: Kirk Carranza MD Last Taken: 03/21/23 13:56 28 mls/hr IV with Additives Nitroglycerin in 5 % Dextrose [Nitroglycerin 50mg/250mL D5W] 250 ML 5 mcg/min IV Ordered By: Kirk Carranza MD Last Taken: 03/21/23 13:25 1.5 mls/hr Protocol: Nitroglycerin IV drip Condition: Initial dose Dose/Route: 5 mcg/min Instruction: 1.5 ml/hr Condition: Titrate by: Dose/Route: 5 mcg/min (1.5ml/hr) Instruction: Every 3 to 5 min Condition: @20mcg/min, Titrate by: Dose/Route: 10mcg/min (3ml/hr) Instruction: Every 3 to 5 min Condition: Maximum dose Dose/Route: 200 mcg/min Instruction: 60 ml/hr Protocol Text: Conc.= 200 mcg/ml Desired Titration Parameters SBP<140 Problem Reconciliation Problems Reviewed?: Yes Patient Discharge Instructions ACTIVITY: Bed rest DIET: low fat, low cholesterol Patient Instructions: DI for Heart Attack, Atrial Fibrillation, DI for Cardiac Catheterization, DI for Surgical Site Infection, DI for Chest Pain, Surgical Site Infection, Moderate Sedation, DI for Post-Surgical Bleeding Providers Primary Care Provider: Maksim Collier Provider: Kirk Carranza Attending Provider: Kirk Carranza
[2023-03-21] MEDS: NITROGLYCERIN IN 5 % DEXTROSE 250 ML 1.5 MG IV (13:25)
--- OUTSIDE RECORDS SUMMARY | 2023-03-21 13:30 | XMS_ITS | Continuity of Care Document ---
Author Name Unknown Address [address] [place] [id number] Organization [facility] Phone Care Team Providers Care [employer] Inspector Name Role Phone DARSHAN RAMIREZ Primary Attending DARSHAN RAMIREZ Admitting JOVANNI MARTINEZ Primary Care DARSHAN RAMIREZ Unavailable ALLERGIES AND ADVERSE REACTIONS ALLERGIES AND ADVERSE REACTIONS Code System Allergy Substance Adverse Reaction Date Reaction (Severity) Comment Status Reported By Updated By No Known Allergies [id number] on March 20, 2023 3:08:48 PM UTC RESULTS Patient: TYLER Giordano Date of : 1960 3 LABORATORY RESULTS ORDER 100: CBC AUTO W DIFF ( LOINC: 52827-8) ORDER DATE: March 20, 2023 3:17:00 PM UTC Specimen Source: Whole Blood PERFORMING LAB: [address] [id number] Result Comment: Final Result Date: March 20, 2023 3:36:00 PM UTC (TECH: MRB) LOINC TEST FLAG RESULT REFERENCE RANGE UPDA WING BY 6690-2 Leukocytes [#/volume] in Blood by Automated count N 6.5 10^3/uL 4.5 10^3/uL - 11.5 10^3/uL March 20, 2023 3:36:00 PM UTC (TECH: MRB) 789-8 Erythrocytes [#/volume] in Blood by Automated count N 5.00 10^6/uL 4.25 10^6/uL - 5.57 10^6/uL March 20, 2023 3:36:00 PM UTC (TECH: MRB) 718-7 Hemoglobin [Mass/volume] in Blood N 14.9 g/dL 13.5 g/dL - 17.2 g/dL March 20, 2023 3:36:00 PM UTC (TECH: MRB) 49733-1 Hematocrit [Volume Fraction] of Blood N 43.5 % 42.0 % - 52.0 % March 20, 2023 3:36:00 PM UTC (TECH: MRB) 787-2 Erythrocyte mean corpuscular volume [Entitic volume] by Automated count N 87.0 fl 80 fl - 95 fl March 20, 2023 3:36:00 PM UTC (TECH: MRB) 70579-4 Erythrocyte mean corpuscular hemoglobin [Entitic mass] in Blood from Fetus by Automated count N 29.8 pg 27.0 pg - 34.0 pg March 20, 2023 3:36:00 PM UTC (TECH: MRB) 02700-0 Erythrocyte mean corpuscular hemoglobin concentration [Mass/volume] in Blood from Fetus by Automated count N 34.3 g/dL 32.0 g/dL - 36.0 g/dL March 20, 2023 3:36:00 PM UTC (TECH: MRB) 54940-8 Platelets [#/volume] in Blood N 191 10^3/uL 150 10^3/uL - 450 10^3/uL March 20, 2023 3:36:00 PM UTC (TECH: MRB) 45621-3 Erythrocyte distribution width [Ratio] N 12.4 % 12.3 % - 15.1 % March 20, 2023 3:36:00 PM UTC (TECH: MRB) 36930-5 Platelet mean volume [Entitic volume] in Blood by Automated count N 9.7 fl 7.4 fl - 10.4 fl March 20, 2023 3:36:00 PM UTC (TECH: MRB) 74786-3 Granulocytes/100 leukocytes in Blood by Automated count N 56.6 % 40 % - 75 % March 20, 2023 3:36:00 PM UTC (TECH: MRB) 736-9 Lymphocytes/100 leukocytes in Blood by Automated count N 35.2 % 15 % - 57 % March 20, 2023 3:36:00 PM UTC (TECH: MRB) 5905-5 Monocytes/100 leukocytes in Blood by Automated count N 6.0 % 4.0 % - 12.0 % March 20, 2023 3:36:00 PM UTC (TECH: MRB) 713-8 Eosinophils/100 leukocytes in Blood by Automated count N 1.4 % 0.0 % - 4.0 % March 20, 2023 3:36:00 PM UTC (TECH: MRB) 706-2 Basophils/100 leukocytes in Blood by Automated count N 0.6 % 0.0 % - 1.0 % March 20, 2023 3:36:00 PM UTC (TECH: MRB) 06135-2 Immature granulocytes [#/volume] in Blood N 0.2 % 0.0 % - 0.8 % March 20, 2023 3:36:00 PM UTC (TECH: MRB) 28768-2 Granulocytes [#/volume] in Blood by Automated count N 3.66 10^3/uL March 20, 2023 3:36:00 PM UTC (TECH: MRB) 731-0 Lymphocytes [#/volume] in Blood by Automated count N 2.28 10^3/uL March 20, 2023 3:36:00 PM UTC (TECH: MRB) 742-7 Monocytes [#/volume] in Blood by Automated count N 0.39 10^3/uL March 20, 2023 3:36:00 PM UTC (TECH: MRB) 711-2 Eosinophils [#/volume] in Blood by Automated count N 0.09 10^3/uL March 20, 2023 3:36:00 PM UTC (TECH: MRB) 704-7 Basophils [#/volume] in Blood by Automated count N 0.04 10^3/uL March 20, 2023 3:36:00 PM UTC (TECH: MRB) 75034-1 Immature granulocytes [#/volume] in Blood N 0.01 10^3/uL March 20, 2023 3:36:00 PM UTC (TECH: MRB) 16041-6 Manual differential performed [Presence] in Blood N NO March 20, 2023 3:36:00 PM UTC (TECH: MRB) ORDER 200: COMP METABOLIC PA ALYCE (LOINC: 53984-1) ORDER DATE: March 20, 2023 3:17:00 PM UTC Specimen Source: Plasma PERFORMING LAB: [address] [id number] Result Comment: Final Result Date: March 20, 2023 3:56:00 PM UTC (TECH: MRB) LOINC TEST FLAG RESULT REFERENCE RANGE UPDA WING BY 2951-2 Sodium [Moles/volume ] in Serum or Plasma N 139 mmol/L 136 mmol/L - 145 mmol/L March 20, 2023 3:56:00 PM UTC (TECH: MRB) 2823-3 Potassium [Moles/volume] in Serum or Plasma N 3.9 mmol/L 3.5 mmol/L - 5.1 mmol/L March 20, 2023 3:56:00 PM UTC (TECH: MRB) 5-0 Chloride [Moles/volu me] in Serum or Plasma N 103 mmol/L 98 mmol/L - 107 mmol/L March 20, 2023 3:56:00 PM UTC (TECH: MRB) 2027-9 Carbon dioxide, tota l [Moles/volume] in Serum or Plasma N 27 mmol/L 21 mmol/L - 32 mmol/L March 20, 2023 3:56:00 PM UTC (TECH: MRB) 51876-1 Anion gap 3 in Serum or Plasma N 9.0 March 20, 2023 3:56:00 PM UTC (TECH: MRB) 2345-7 Glucose [Mass/volume ] in Serum or Plasma N 86 mg/dL 70 mg/dL - 110 mg/dL March 20, 2023 3:56:00 PM UTC (TECH: MRB) 3094-0 Urea nitrogen [Mass/volume] in Serum or Plasma N 14 mg/dL 7 mg/dL - 18 mg/dL March 20, 2023 3:56:00 PM UTC (TECH: MRB) 2160-0 Creatinine [Mass/volume] in Serum or Plasma N 1.2 mg/dL 0.8 mg/dL - 1.3 mg/dL March 20, 2023 3:56:00 PM UTC (TECH: MRB) 3097-3 Urea nitrogen/Creatinine [Mass Ratio] in Serum or Plasma N 11.7 Ratio 9 Ratio - 21 Ratio March 20, 2023 3:56:00 PM UTC (TECH: MRB) 13399-7 Glomerular filtratio n rate/1.73 sq M.predicted by Creatinine-based formula (MDRD) N 65 mL/min >60 March 20, 2023 3:56:00 PM UTC (TECH: MRB) 2885-2 Protein [Mass/volume ] in Serum or Plasma N 7.4 g/dL 6.4 g/dL - 8.2 g/dL March 20, 2023 3:56:00 PM UTC (TECH: MRB) 1751-7 Albumin [Mass/volume ] in Serum or Plasma N 3.9 g/dL 3.4 g/dL - 5.0 g/dL March 20, 2023 3:56:00 PM UTC (TECH: MRB) 34733-2 Calcium [Mass/volume ] in Serum or Plasma N 8.6 mg/dL 8.5 mg/dL - 10.1 mg/dL March 20, 2023 3:56:00 PM UTC (TECH: MRB) 55587-2 Calcium [Mass/volume ] corrected for total protein in Serum or Plasma N 8.7 mg/dL 8.5 mg/dL - 10.1 mg/dL March 20, 2023 3:56:00 PM UTC (TECH: MRB) 1975-2 Bilirubin.total [Mass/volume] in Serum or Plasma N 0.7 mg/dL 0.4 mg/dL - 1.5 mg/dL March 20, 2023 3:56:00 PM UTC (TECH: MRB) 1920-8 Aspartate aminotransferase [Enzymatic activity/volume] in Serum or Plasma N 17 U/L 15 U/L - 37 U/L March 20, 2023 3:56:00 PM UTC (TECH: MRB) 1742-6 Alanine aminotransferase [Enzymatic activity/volume] in Serum or Plasma N 26 U/L 12 U/L - 78 U/L March 20, 2023 3:56:00 PM UTC (TECH: MRB) 6768-6 Alkaline phosphatase [Enzymatic activity/volume] in Serum or Plasma N 91 U/L March 20, 2023 3:56:00 PM UTC (TECH: MRB) ORDER 300: TROPONIN QUANT (L OINC: 86000-0) ORDER DATE: March 20, 2023 3:17:00 PM UTC Specimen Source: Plasma PERFORMING LAB: [address] [id number] Result Comment: Final Result Date: March 20, 2023 3:57:00 PM UTC (TECH: MRB) LOINC TEST [place] [address]-1 Troponin I.cardiac panel - Serum or Plasma by High sensitivity method HH 520 ng/L 0 ng/L - 76 ng/L March 20, 2023 3:57:00 PM UTC (TECH: MRB) ORDER 400: B-TYPE NATRIURETI C PEPTIDE BNP (LOINC: 90313-5) ORDER DATE: March 20, 2023 3:17:00 PM UTC Specimen Source: Whole Blood PERFORMING LAB: [address] [id number] Result Comment: Final Result Date: March 20, 2023 4:08:00 PM UTC (TECH: MRB) LOINC TEST FLAG [place] [address]-0 Natriuretic peptide B [Mass/volume] in Serum or Plasma H 127.0 pg/mL 0.0 pg/mL - 100 pg/mL March 20, 2023 4:08:00 PM UTC (TECH: MRB) ORDER 500: UA AND MICRO/CULT IF INDICATED (LOINC: 63475-8) ORDER DATE: March 20, 2023 3:17:00 PM UTC Specimen Source: URINE PERFORMING LAB: [address] [id number] Result Comment: Final Result Date: March 20, 2023 4:18:00 PM UTC (TECH: MRB) LOINC TEST FLAG RESULT REFERENCE RANGE UPDA WING BY 5778-6 Color of Urine N yellow YELLOW Decem 2022 4:18:00 PM UTC (TECH: MRB) 5767-9 Appearance of Urine N clear CLEAR March 20, 2023 4:18:00 PM UTC (TECH: MRB) 5792-7 Glucose [Mass/volume] in Urine by Test strip N NORM NORMAL March 20, 2023 4:18:00 PM UTC (TECH: MRB) 35198-5 Bilirubin.total [Mass/volume] in Urine by Automated test strip N NEGATIVE NEGATIVE March 20, 2023 4:18:00 PM UTC (TECH: MRB) 5797-6 Ketones [Mass/volume] in Urine by Test strip N NEGATIVE NEGATIVE March 20, 2023 4:18:00 PM UTC (TECH: MRB) 2965-2 Specific gravity of Urine N 1.010 1.005 - 1.035 March 20, 2023 4:18:00 PM UTC (TECH: MRB) 64385-3 Erythrocytes [#/volume] in Urine by Automated test strip N NEGATIVE NEGATIVE March 20, 2023 4:18:00 PM UTC (TECH: MRB) 31137-7 pH of Urine by Automated test strip N 7.00 5.0 - 7.5 February 4:18:00 PM UTC (TECH: MRB) 55903-0 Protein [Presence] in Urine by Test strip N NEGATIVE NEGATIVE March 20, 2023 4:18:00 PM UTC (TECH: MRB) 29093-9 Urobilinogen [Mass/volume] in Urine by Automated test strip N NORM NORMAL March 20, 2023 4:18:00 PM UTC (TECH: MRB) 77694-1 Nitrate [Presence] in Urine N NEGATIVE NEGATIVE March 20, 2023 4:18:00 PM UTC (TECH: MRB) 09795-6 Leukocytes [#/volume] in Urine by Test strip N NEGATIVE NEGATIVE March 20, 2023 4:18:00 PM UTC (TECH: MRB) 25120-1 Microscopic observation [Identifier] in Urine sediment by Light microscopy N NO March 20, 2023 4:18:00 PM UTC (TECH: MRB) ORDER 600: URINE DRUG SCREEN - MEDTOX (LOINC: 24794-5) ORDER DATE: March 20, 2023 3:17:00 PM UTC Specimen Source: URINE PERFORMING LAB: [address] [id number] Result Comment: Final Result Date: March 20, 2023 4:37:00 PM UTC (TECH: MRB) LOINC TEST FLAG RESULT REFERENCE RANGE UPDATED BY 3530-3 Tetrahydrocannabinol [Mass/volume] in Urine N NEGATIVE NEGATIVE March 20, 2023 4:37:00 PM UTC (TECH: MRB) 3937-0 Phencyclidine [Mass/ volume] in Urine N NEGATIVE NEGATIVE March 20, 2023 4:37:00 PM UTC (TECH: MRB) 3398-5 Cocaine [Mass/volume] in Urine N NEGATIVE NEGATIVE March 20, 2023 4:37:00 PM UTC (TECH: MRB) 43411-5 Methylenedioxymetham phetamine [Mass/volume] in Urine N NEGATIVE NEGATIVE March 20, 2023 4:37:00 PM UTC (TECH: MRB) 8220-6 Opiates [Mass/volume] in Urine N NEGATIVE NEGATIVE March 20, 2023 4:37:00 PM UTC (TECH: MRB) 54610-7 Amphetamine [Mass/vo lume] in Urine N NEGATIVE NEGATIVE March 20, 2023 4:37:00 PM UTC (TECH: MRB) 9428-4 Benzodiazepines [Mas s/volume] in Urine N NEGATIVE NEGATIVE March 20, 2023 4:37:00 PM UTC (TECH: MRB) 64907-8 Tricyclic antidepres sants [Mass/volume] in Urine N NEGATIVE NEGATIVE March 20, 2023 4:37:00 PM UTC (TECH: MRB) 3774-7 Methadone [Mass/volume] in Urine N NEGATIV E NEGATIVE March 20, 2023 4:37:00 PM UTC (TECH: MRB) 9426-8 Barbiturates [Mass/v olume] in Urine N NEGATIVE NEGATIVE March 20, 2023 4:37:00 PM UTC (TECH: MRB) 67102-3 Oxycodone [Mass/volume] in Urine N NEGATIV E NEGATIVE March 20, 2023 4:37:00 PM UTC (TECH: MRB) 3415-7 Buprenorphine [Mass/ volume] in Urine N NEGATIVE NEGATIVE March 20, 2023 4:37:00 PM UTC (TECH: MRB) ORDER 700: D-DIMER QUANTITAT MEERA (LOINC: 7799-0) ORDER DATE: March 20, 2023 3:17:00 PM UTC Specimen Source: Plasma PERFORMING LAB: [address] [id number] Result Comment: Final Result Date: March 20, 2023 4:10:00 PM UTC (TECH: MRB) LOINC TEST FLAG RESULT REFERENCE RANGE UPDA WING BY 7799-0 Fibrin D-dimer [Units/volume] in Platelet poor plasma HH 618.66 ng/mL 0 ng/mL - 500 ng/mL March 20, 2023 4:10:00 PM UTC (TECH: MRB) ORDER 1100: MAGNESIUM (LOINC : 27290-1) ORDER DATE: March 20, 2023 3:28:00 PM UT Specimen Source: Serum/Plasm a PERFORMING LAB: [facility] [id number] Result Comment: Final Result Date: March 20, 2023 3:57:00 PM UT (TECH: MRB) [facility] TEST FLAG [place] [address]-5 Magnesium [Mass/volume] in Serum or Plasma N 2.2 mg/dL 1.8 mg/dL - 2.4 mg/dL February 232022 3:57:00 PM UT (TECH: MRB) LABORATORY NARRATIVE RESULTS Information is not available RADIOLOGY RESULTS ORDER 900: CT BRAIN HEAD WO ([facility]: 26643-3) ORDER DATE: March 20, 2023 3:24:[address] [facility] PATHOLOGY NARRATIVE RESULTS Information is not available MICROBIOLOGY RESULTS No Micro Labs/Results Exist for Patient BLOOD ADMIN RESULTS Information is not available TREATMENT PLAN DISCHARGE MEDICATIONS Status RXNORM Medication Dose Route Frequency Dates Comments U pdated By Patient discharge medication information is not available. PATIENT OPEN ORDERS Code System Description Frequency Occurrences Priority [place] [address] [facility] EKG study ONE TIME 0 Stat March 20, 2023 3:17:00 PM UT ASHLEY Alvarado MD [id number] on March 20, 2023 3:17:[address] [facility] SCHEDULED PROCEDURES Code System Description Status Scheduled Date Upd ated By Patient scheduled procedure information is not available. MEDICATIONS HOME MEDICATIONS Status RXNORM Medication Dose Route Frequency Dates Comments R eported By Updated By Patient not on Self-Medications [id number] on March 20, 2023 3:08:[address] [facility] DISCHARGE MEDICATIONS Status RXNORM Medication Dose Route Frequency Dates Comments Physic ladi Updated By No Discharge Medication Info rmation Available INPATIENT MEDICATIONS Status RXNORM Medication Dose Route Frequency Rate Quantity Dates Comments Physician Updated By Jim inued [id number] nitroglycer in oint (NITRO-BID) 2 % OINT 1.0 IN TOPICA L ONE TIME ONLY Start: Dece er 2022 3:54:0 0 PM UT End: [facility] er 2022 3:54:0 0 PM UT ASHLEY Alvarado MD INTERFAC ED on March 20, 2023 3:53:00 PM UT Discont inued [id number] lisinopril (ZESTRIL) 10 MG TABS 10.0 MG BY MOUTH ONE TIME ONLY Start: [facility] er 2022 3:54:0 0 PM UTC End: [facility] er 2022 3:54:0 0 PM UTC ASHLEY Alvarado MD INTERFAC ED on March 20, 2023 3:53:00 PM UTC Discont inued [id number] furosemide 40mg vial (LASIX) 10 MG/ML SOLN 40.0 MG IV PUSH ONE TIME ONLY Start: [facility] er 2022 3:54:0 0 PM UTC End: [facility] 2022 3:54:0 0 PM UTC ASHLEY Alvarado MD INTERFAC ED on March 20, 2023 3:53:00 PM UTC Discont inued [id number] ENOXAPARIN SODIUM 80 MG/0.8ML SOSY 80.0 MG SUBCUT ANEOUS ONE TIME ONLY Start: [facility] er 2022 4:42:0 0 PM UTC End: [facility] er 2022 4:42:0 0 PM UTC ASHLEY Alvarado MD INTERFAC ED on March 20, 2023 4:41:00 PM UTC Discont inued aspirin childrens chewable 81 MG CHEW 81.0 MG BY MOUTH ONE TIME ONLY Start: [facility] er 2022 4:42:0 0 PM UTC End: [facility] er 2022 4:42:0 0 PM UTC SAHLEY Alvarado MD INTERFAC ED on March 20, 2023 4:42:00 PM UTC Discont inued [id number] metoprolol tartrate(LO PRESSOR) 1 MG/ML SOLN 5.0 MG IV PUSH ONE TIME ONLY Start: [facility] er 2022 4:44:0 0 PM UTC End: [facility] er 2022 4:44:0 0 PM UTC ASHLEY Alvarado MD INTERFAC ED on March 20, 2023 4:42:00 PM UTC Discont inued [id number] ENOXAPARIN SODIUM 100 MG/ML SOSY 100.0 MG SUBCUT ANEOUS ONE TIME ONLY [facility]: [facility] 2022 4:46:0 0 PM UTC End: [facility] er 2022 4:46:0 0 PM UTC ASHLEY Alvarado MD INTERFAC ED on March 20, 2023 4:45:00 PM UTC SOCIAL HISTORY SOCIAL HISTORY SNOMED-CT Social History Element Description Effective Dates Offered Cessation Comment UpdatedBy [id number] Smoking Status Unknown If Ever Smoked SOCIAL HISTORY - Gender Sex: Male SOCIAL HISTORY - Sexual Behavior Sexual Orientation Gender Identity SNOMED-CT Description SNO MED -CT Description Activity Level No of Partners Partner Type UpdatedBy VITAL SIGNS PATIENT VITAL SIGNS This section displays the mo st recent value for each vital sign as of March 20, 2023 6:57:04 PM UT Loinc Code Vital Sign Activity Date Result Updated By 8310-5 Body temperature March 20 3:05:00 PM UTC 98.0 [degF] [id number] on March 20, 2023 3:07:16 PM UT 8462-4 Diastolic blood pressure March 20, 2023 4:01:00 PM UTC 79.0 mm[Hg] [id number] on March 20, 2023 4:16:10 PM UT 8867-4 Heart rate March 20 5:31:00 PM UTC 68 /min [id number] on March 20, 2023 5:38:[place] [address]-8 Oxygen saturation in Arterial blood by Pulse oximetry March 20, 2023 5:31:00 PM UTC 95.0 % [id number] on March 20, 2023 5:38:21 PM UT 9279-1 Respiratory rate March 20 3:05:00 PM UTC 18 /min [id number] on March 20, 2023 3:07:16 PM UT 8480-6 Systolic blood pressure March 20, 2023 4:01:00 PM UTC 171.0 mm[Hg] [id number] on March 20, 2023 4:16:10 PM UT PEDIATRIC GROWTH CHART - VITAL SIGNS This section displays Head C ircumference Percentile, Weight for Length Percentile and BMI Percentile Loinc Code Pediatric Measure Age (Months) Result Updat ed By HEALTH CONCERNS Problems Concern Status Health Concern problem infor mation not available. Smoking Status Status Years Used Consumed packs p er day Health Concern smoking histo ry information not available. Family History Concern Status Health Concern family histor y information not available. ENCOUNTERS ENCOUNTER INFORMATION Reason for Visit HIGH BLOOD PRESSURE Admission March 20, 2023 2:55:[address] [id number] Discharge March 20, 2023 5:57:00 PM UTC [facility] ENCOUNTER DIAGNOSES Notes information is not maru ilable. Code System Diagnosis Onset Date Diagnosis information is not available. ABSTRACT DIAGNOSES Code System Diagnosis Updated By Abstract Diagnosis informati on is not available. CARE TEAM Care [employer] Inspector Role DARSHAN RAMIREZ Primary Attending DARSHAN RAMIREZ Admitting JOVANNI MARTINEZ Primary Care DARSHAN RAMIREZ Referring CARE TEAM CARE administrative support assistant Role on Team Status Start Date End Date Update d By ASHLEY Alvarado MD Referring normal March 20, 2023 3:35:14 PM UTC March 20, 2023 5:57:00 PM UTC [id number] on March 20, 2023 3:35:14 PM UTC ASHLEY Alvarado MD Attending normal March 20, 2023 3:35:14 PM UTC March 20, 2023 5:57:00 PM UTC [id number] on March 20, 2023 3:35:14 PM UTC ASHLEY Alvarado MD Admitting normal March 20, 2023 3:35:14 PM UTC March 20, 2023 5:57:00 PM UTC [id number] on March 20, 2023 3:35:14 PM UTC MICHELLE BAIG MD PHY PCP normal March 20, 2023 2:56:05 PM UTC March 20, 2023 5:57:00 PM UTC [id number] on March 20, 2023 3:35:14 PM UTC
[2023-03-21] MEDS: HEPARIN DRIP CONSULT 1 EACH NOTAPPLIC (13:45)
[2023-03-21] MEDS: HEPARIN 25,000 UNITS/D5W 500 ML 28 UNIT IV (13:56)
--- NOTE | 2023-03-21 14:05 | HMH.PHAHEP ---
[facility] Pharmacy Heparin Dosing Demographic Data Admission date:: 03/20/23 Date: 03/21/23 Time: 14:05 Allergies Allergy/AdvReac Type Severity Reaction Status Date / Time No Known Allergies Allergy Verified 03/20/23 14:51 Height: 1.75 m Weight: 108.817 kg Indication Medication therapy:: Heparin Current Indications:: MEDIUM DOSE PROTOCOL - PREOP ANTICOAGULATION FOR CABG AT [facility]. Current Active Problems (Updated 03/21/23 @ 18:15 by Kirk Carranza MD) Elevated d-dimer (Acute) HLD (hyperlipidemia) (Acute) HTN (hypertension) (Acute) New onset a-fib (Acute) NSTEMI (non-ST elevated myocardial infarction) (Acute) Chest pain (Acute) CVA?: No Bleeding problem?: No Kidney disease?: No ME?: Yes Additional History:: HYPERTENSION, HYPERLIPIDEMIA, NSTEMI, ATRIAL FIBRILLATION Desired PTT range:: 50-75 seconds Comments:: BASELINE PTT: Labs Anticoagulation Lab Results:: 03/20/23 03/21/23 14:30 06:23 Hgb 16.3 15.2 Hct 46.9 43.9 Plt Count 211 167 Monitoring Dose Monitor 1: Date: 03/21/23 Time: 13:42 PTT Result:: BASELINE PTT: 66.8 SECONDS Infusion Rate:: START HEPARIN DRIP AT 1400 UNITS/HOUR = 28 ML/HOUR, PATIENT NOT BOLUSED DUE TO RECEIVING 8000 UNITS OF HEPARIN IV IN THE DUMP GROUNDS CHECKER. Comment:: PLATELET COUNT = 167K Dose Monitor 2: Date: 03/21/23 Time: 18:00 PTT Result:: 55.4 SECONDS Infusion Rate:: CONTINUED CURRENT HEPARIN DRIP RATE OF 1400 UNITS/HOUR = 28 ML/HOUR Comment:: PATIENT TRANSFERRED TO . Core Measures Is INR > or = 2 at discharge?: No Most Recent Labs:: Laboratory Results - last 24 hr 03/20/23 14:30: WBC 8.6, RBC 5.33, Hgb 16.3, Hct 46.9, MCV 88.0, MCH 30.6, MCHC 34.8, RDW 13.5, Plt Count 211, MPV 8.1, Neut % (Auto) 63.2, Lymph % (Auto) 30.2, [place] % (Auto) 4.7, Eos % (Auto) 1.2, Baso % (Auto) 0.7, Neut # (Auto) 5.4, Lymph # (Auto) 2.6, [place] # (Auto) 0.4, Eos # (Auto) 0.1, Baso # (Auto) 0.1, Sodium 137, Potassium 3.8, Chloride 103, Carbon Dioxide 26, Anion Gap 11.8, BUN 15, Creatinine 1.10, Estimated Creat Clear 108, Estimated GFR 68, Est GFR ( Amer) 82, Glucose 80, Calcium 8.6, Total Bilirubin 0.8, AST 32, ALT 23, Alkaline Phosphatase 98, Troponin I 0.38 H, Total Protein 7.6, Albumin 4.6, Globulin 3.0, Albumin/Globulin Ratio 1.5 03/20/23 17:53: Troponin I 0.30 H 03/20/23 20:15: Troponin I 0.26 H 03/21/23 06:23: WBC 7.3, RBC 4.89, Hgb 15.2, Hct 43.9, MCV 89.9, MCH 31.1, MCHC 34.6, RDW 13.7, Plt Count 167, MPV 7.9, Neut % (Auto) 58.8, Lymph % (Auto) 33.3, [place] % (Auto) 6.2, Eos % (Auto) 1.3, Baso % (Auto) 0.5, Neut # (Auto) 4.3, Lymph # (Auto) 2.4, [place] # (Auto) 0.5, Eos # (Auto) 0.1, Baso # (Auto) 0.0, Sodium 139, Potassium 3.6, Chloride 102, Carbon Dioxide 30, Anion Gap 10.6, BUN 16, Creatinine 1.20, Estimated Creat Clear 99, Estimated GFR 62, Est GFR ( Amer) 74, Glucose 88, Hemoglobin A1c 5.0, Calcium 8.4, Magnesium 2.4 H, Total Bilirubin 0.8, AST 31, ALT 21, Alkaline Phosphatase 83, Total Protein 7.0, Albumin 4.1 D, Globulin 2.9, Albumin/Globulin Ratio 1.4, Triglycerides 284 H, Cholesterol 238 H, LDL Cholesterol Direct 127.67, VLDL Cholesterol 57 H, HDL Cholesterol 40, Cholesterol/HDL Ratio 6.0 H, TSH 0.89 If INR was < than 2.0 why was therapy stopped?: PATIENT TRANSFERRED TO [facility] ON HEPARIN DRIP Were Heparin and Warfarin started on the same day?: No If not, why?: PATIENT TRANSFERRED TO ON HEPARIN DRIP
[2023-03-21 14:27] LABS: PTT Heparin (inpatient only) 66.8 Seconds (23.6-34.0)
--- NOTE | 2023-03-21 14:35 | PC.NURSE ---
REMOVED 2ML OF AIR FROM RADIAL BAND. NO BLEEDING NOTED.
--- NOTE | 2023-03-21 14:48 | PC.NURSE ---
1354 Called and checked bed status with [facility]. per [facility] pt's name is on the list for transfer, but bed is currently not available.
--- NOTE | 2023-03-21 15:33 | PC.NURSE ---
REMOVED 2ML OF AIR FROM RADIAL BAND. NO DRAINAGE NOTED.
--- NOTE | 2023-03-21 15:38 | PC.NURSE ---
PER DR TURNER PT CAN HAVE A CARDIAC DIET FOR SUPPER THEN NPO AFTER MIDNIGHT. ORDER PLACED.
--- NOTE | 2023-03-21 15:50 | PC.NURSE ---
REMOVED 2ML OF AIR FROM RADIAL BAND. NO DRAINAGE NOTED.
--- NOTE | 2023-03-21 16:10 | PC.NURSE ---
management of pt critical care drips and critical care provided by Pradeep Mi RN completed under my supervision. Rina SWEENEY
--- NOTE | 2023-03-21 16:31 | PC.NURSE ---
RADIAL BAND REMOVED. NO DRAINAGE NOTED. NONADHESIVE PAD AND TEGADERM IN PLACE.
--- NOTE | 2023-03-21 17:09 | PC.NURSE ---
A&OX4. PT HAS TOLERATED RA WELL THROUGHOUT SHIFT. RESPIRATIONS REGULAR AND UNLABORED. LUNG SOUNDS BILATERALLY CLEAR. NO COUGH NOTED. PT HAS REMAINED ON TELE THROUGHOUT SHIFT. AFIB NOTED. HAND COLLAR TURNER EQUAL. +1 PULSES NOTED THROUGHOUT. ACTIVE BOWEL SOUNDS HEARD IN ALL 4 QUADRANTS. LAST BM PER PT IS 03/19/23. VOIDS PER BATHROOM WITH STANDBY ASSISTANCE. SIGNIFICANT OTHER AND DAUGHTER AT BEDSIDE CURRENTLY. ON HEPARIN DRIP AND NITRO DRIP CURRENTLY TOLERATING WELL. NITRO DRIP AT 7.5MCG/MIN, DENIES ANY HEADACHES OR CHEST PAIN THUS FAR. AWAITING BED ASSIGNMENT AT FOR CABG. NO EDEMA NOTED. DENIES ANY PAIN THUS FAR. BED IN LOWEST POSITION. CALL LIGHT WITHIN REACH. VSS. NO QUESTIONS OR CONCERNS VOICED AT THIS TIME
[2023-03-21 18:25] LABS: PTT Heparin (inpatient only) 55.4 Seconds (23.6-34.0)
--- NOTE | 2023-03-21 18:34 | PC.NURSE ---
1832 called [facility] to check status of bed for pt. [facility] staets that pt room is currently dirty and when the bed is ready and available, their RN will call and let us know. Dr Carranza updated at 1837 and pt and family updated as well 1838
--- NOTE | 2023-03-21 18:42 | PC.NURSE ---
SPOKE WITH KYLAH WITH [facility]. PTT 55.4. SHE STATED EVERYTHING IS WITHIN NORMAL LIMITS AND LEAVE IT ALL THE SAME. PTT IN 6 HOURS.
--- NOTE | 2023-03-21 19:19 | PC.NURSE ---
CALLED REPORT TO DEBBY SWEENEY AT . STATES PT IS GOING TO [facility] A 8TH FLOOR ROOM 126.
--- NOTE | 2023-03-21 19:25 | PC.NURSE ---
[facility] called for pt update , notified of most current vital signs.
--- NOTE | 2023-03-21 19:28 | PC.NURSE ---
RENNY AWARE OF TRANSFER
--- NOTE | 2023-03-21 19:37 | PC.NURSE ---
[facility] called and states that their progressive care unit is not able to take titratable drips and pt will need ICU bed. Karina states she will call back when ICU bed is available. Pt updated.
--- NOTE | 2023-03-21 19:42 | PC.NURSE ---
tx calls with an ICU bed. Pt will be tx to [facility], 8th floor, room 222. Pt updated.
--- NOTE | 2023-03-21 19:51 | PC.NURSE ---
Kairna with tx calls to state that [facility] wants pt to be in the progressive care unit and pt will not be going to ICU. Pt will be tx to [facility], floor 8, room 8126.
--- NOTE | 2023-03-21 20:05 | PC.NURSE ---
Called to give report to ZAHRA Moreland. States she has received report from previous nurse.
--- NOTE | 2023-03-21 20:15 | PC.NURSE ---
Pt updated that he will be going to the progressive care unit to the bed he was assigned to previously. Room 8126, 8th floor in [facility]
--- NOTE | 2023-03-21 21:34 | PC.NURSE ---
Pt left the floor with EMS via stretcher to @ 1206
== END 2023-03-21 21:33 | disposition short-term general hospital (02) | DRG 282 ==
PROVIDERS: Internal Medicine; Admitting Provider Internal Medicine Adolescent Medicine; PCP Family Medicine; Visit Provider Internal Medicine Adolescent Medicine
PROC: 4A023N7 Measurement of Cardiac Sampling and Pressure, Left Heart, Percutaneous Approach (ICD-10-PCS; principal; 2023-03-21 11:00)
DX: I21.4 Non-ST elevation (NSTEMI) myocardial infarction (principal); I10 Essential (primary) hypertension; I48.91 Unspecified atrial fibrillation; E66.9 Obesity, unspecified; Z68.35 Body mass index [BMI] 35.0-35.9, adult; I25.10 Atherosclerotic heart disease of native coronary artery without angina pectoris
CPT/HCPCS: 93458; 36415; 71275; 80053; 80061; 83036; 83735; 84443; 84484; 85025; 85730; 93005; 93306; 99152; C1725; C1760; C1769; J1644; J2405; Q9967

== ENCOUNTER 2023-05-21 09:14 | Outpatient (RCR) | payer BC, SELFPAY | END 2023-05-21 10:30 | disposition home or self-care (01) | LOC: PT 09:14 | PROVIDERS: Visit Provider Student in an Organized Health Care Education/Training Program | DX: I25.10 Atherosclerotic heart disease of native coronary artery without angina pectoris (principal); Z95.1 Presence of aortocoronary bypass graft ==

== ENCOUNTER 2023-06-12 11:37 | Inpatient (IN) | payer BC, SELFPAY ==
[2023-06-11 16:17] VITALS: BMI 33.0
[2023-06-12] VITALS (43 sets, daily range): BP systolic 89–164; BP diastolic 48–107; PULSE 60–125; RESP 17–33; TEMP 36.2–38.6; O2SAT 93–100; BMI 35.0; BMI 34.9
--- NOTE | 2023-06-12 08:59 | CA_ITS ---
APPROVED REPORT EXAM: Comprehensive 2D, Doppler, and color-flow Echocardiogram Medication Specialist: Julia Lopez CRT Ht: 5 ft 8 in Wt: 230lbs BSA: 2.17 BP: 180/113 mmHg Indications: CABG X 4, AFIB, CAD,WV, aspiration pneumonitis 2D Dimensions LA Volume 82.20 mL LA Volume Index 37.00 mL/m2 (M/F) 16-34 M-Mode Dimensions RVDd 4.33 cm (0.9-2.6) LA Diam 4.13 cm (1.9-4.0) LVDd 4.64 cm (3.5-5.7) LVDs 3.00 cm (3.5-5.7) IVSd 1.44 cm (0.6-1.1) PWd 0.82 cm (0.6-1.1) EF (Teich) 64.80% FS 35.30% EDV (Teich) 99.30 mL TAPSE 1.13 (<1.7) ESV (Teich) 35.00 mL LV Diastology E Decel Time 103 (160-240 msec) E/A Ratio 2.29 MED A' 6.50 cm/s LAT A' 11.60 cm/s Aortic Valve AO Peak GR. 3.60 mmHg Mitral Valve MV E Max Sheldon. 82.0 (40-130 cm/s) MV A Velocity 36.0 (40-130 cm/s) E/A Ratio 2.29 MV PHT 30.0 ms Pulmonary Valve PV Peak Velocity 189.0 (50-150 cm/s) Tricuspid Valve TR P. Velocity 220.00 cm/s RAP Estimate 10.00 mmHg RVSP 29.40 mmHg Left Ventricle The left ventricle is normal size. The left ventricular systolic function is normal. The left ventricular ejection fraction is within the normal range. There is increased LV wall thickness. There is normal LV segmental wall motion. Diastolic dysfunction is indeterminate due to atrial fibrillation. LVEF is 55%. Right Ventricle Right ventricle is mild to moderately dilated. Right ventricle is mildly hypokinetic. Atria Left atrium is mildly dilated. Right atrium is mildly dilated. There is no Doppler evidence of interatrial shunt. Aortic Valve The aortic valve opens well. There is no aortic valvular stenosis. No aortic regurgitation is present. Mitral Valve The mitral valve is normal in structure. No evidence of mitral valve stenosis. Trace mitral regurgitation. Tricuspid Valve The tricuspid valve leaflets are thin and pliable. Trace tricuspid regurgitation. RVSP is 20 mmHg + RA pressure. Pulmonic Valve The pulmonary valve is normal in structure. Mild pulmonic regurgitation. Great Vessels The aortic root is normal in size. The ascending aorta is mildly dilated, measuring 3.9 cm in diameter. The IVC is not well-visualized. Pericardium There is no pericardial effusion. Other Information Study Quality: Fair Conclusion Normal LV systolic function. Mild to moderate RV dilation with mild reduction in RV function. Mild PI. Electronically signed by : Casandra Valdez MD 06/13/2023 15:12:30
[2023-06-12 09:31] LABS: Chloride 106 mmol/L (98-107); Potassium 3.8 mmoL/L (3.5-5.1); Sodium 140 mmol/L (136-145)
[2023-06-12 09:34] LABS: Anion Gap 8.8 mEq/L (5-15); Blood Urea Nitrogen 17 mg/dl (9-20); Calcium 8.8 mg/dl (8.4-10.2); Carbon Dioxide 29 mmol/L (22.0-30.0); Creatinine Clearance Estimated 114 mL/min (50-200); Estimated Glomerular Filt Rate 76 ml/min (>60); GFR (African American) 92 ML/MIN (>60); Glucose 112 mg/dl (74-100)
[2023-06-12 09:35] LABS: INR 1.09 (0.9-1.1); Prothrombin Time 11.7 seconds (10.1-12.5)
--- NOTE | 2023-06-12 09:38 | ECG_ITS ---
APPROVED REPORT Exam: Resting ECG HR:63 bpm ECG Measurements Heart Rate 63 AXES QRSd 94 QRS -11 QT 441 T 98 QTc 449 Conclusion ATRIAL FIBRILLATION INDETERMINATE AXIS LOW QRS VOLTAGE IN PRECORDIAL LEADS [QRS DEFLECTION < 1.0 mV IN CHEST LEADS] INCOMPLETE RIGHT BUNDLE BRANCH BLOCK [90+ ms QRS DURATION, TERMINAL R IN V1/V2, 40+ ms S IN I/aVL/V4/V5/V6] POSSIBLE ANTERIOR MYOCARDIAL INFARCTION , PROBABLY OLD [30 ms Q WAVE IN V3/V4, OR R < 0.2 mV IN V4] ABNORMAL RHYTHM ECG UNCONFIRMED REPORT Electronically signed by : Imtiaz Fernandez MD 06/12/2023 21:10:27
[2023-06-12 09:41] LABS: Basophils # 0.1 K/mm3 (0-0.2); Basophils % 1.2 % (0.1-2.0); Eosinophils # 0.2 K/mm3 (0.0-0.4); Eosinophils % 2.8 % (0.1-12.0); Hematocrit 46.2 % (42.0-52.0); Hemoglobin 15.3 g/dL (14.1-18.0); Lymphocytes # 2.1 K/mm3 (0.7-4.5); Lymphocytes % 28.9 % (10-50); Mean Corpuscular HGB Conc 33.2 g/dL (31.8-35.4); Mean Corpuscular Volume 93.5 fl (80-94); Mean Platelet Volume 7.7 fl (7.4-10.4); Monocytes # 0.4 K/mm3 (0.1-1.0); Monocytes % 5.7 % (1.7-9.3); Neutrophils # 4.4 K/mm3 (1.8-7.8); Neutrophils % 61.4 % (37.0-80.0); Platelet Count 199 K/mm3 (142-424); Red Blood Count 4.95 M/mm3 (4.60-6.20); Red Cell Distribution Width 13.7 % (11.5-17.5); White Blood Count 7.1 K/mm3 (4.8-10.8)
[2023-06-12] MEDS: LACTATED RINGERS 1000ML 1,000 ML 25 ML IV (10:00)
--- NOTE | 2023-06-12 10:24 | P.PNANES_ITS ---
[facility] Disclaimer: The information contained in this section may have been updated after the patient was seen, as this information can be updated by other users. Medical History Peyronie's disease Dupuytren's contracture of both hands Surgical History S/P CABG x 4 Family History Other No significant family history Social History Smoking Status: Never smoker alcohol intake: never substance use type: denies use current occupational status: employed Travel in the last 8 weeks: Inside the [place] caffeine: Yes [facility] Anesthesia Checklist Patient Identification Patient Identification: Arm Band and Verbal (Name & ) Structural Data Admitted From: Home Planned Operative Procedure/s: VIRGINIE and cardioversion Consent for Planned Operative Procedure(s) Verified: Yes NPO Status Verified Time NPO: 00:00 Chart Verification Results Verified: CBC and BMP Additional verifications Anesthesia Reactions: No Airway Assessment Mallampati Score:: Class I C-Spine Mobility Assessed: Yes TMJ Mobility Assessed: Yes Dentition: Poor Dentition Neurological Assessment Level of Consciousness: Awake Hx Seizures: No Numbness or tingling in extremities: No Anesthesia Plan Anesthesia Risk discussed: Yes Anesthesia Plan: Verified ASA Class: IV Anesthesia Type: MAC
--- NOTE | 2023-06-12 11:00 | SUR.OPER ---
1050- rapid red called 1051- RFeeback, LEATHER COATER; MD Torres, MD Coburn, Dalton Martini, LINDA; ANTHONY Day, RN; Bridgette, RN; Ronald, RN; dAelina, RN; Chris, RN; Paco, RN; Cleopatra, EstherD; Kaitlin Yañez,RT; Juana Sanders, RT @ bedside 1053- succ in per RFeeback, LEATHER COATER 1056- 8.0 ETT inserted per Ramiro, LEATHER COATER-unsuccessful 1100- Samantha Mendoza with family at this time 1101- 8.0 ETT inserted per RFeeback, LEATHER COATER-successful (bilat breath sounds present, capnography captured on monitor, and confirmed by CXR) measures 20 @ the teeth, secured by RT 1106- 16fr. [place]-Sump OG inserted by RFeeback, LEATHER COATER measures 50cm, + bowel sounds noted and confirmed by CXR 1117- Dr Valdez went to waiting room to speak with family 1121- Pt brought to PACU in stable condition
--- NOTE | 2023-06-12 11:18 | XR_ITS ---
FINAL REPORT CLINICAL HISTORY: NG TUBE FINDINGS: ABDOMEN SINGLE VIEW There is a nonspecific, nonobstructive bowel gas pattern. No bowel dilation is identified. No abnormal calcification is seen. NG tube tip is in the body of the stomach. IMPRESSION: NG tube as above. Reviewed, Interpreted and Dictated by Orlando Yao III, MD Transcribed by Samantha Gregorio Authenticated and [facility]
--- NOTE | 2023-06-12 11:18 | XR_ITS ---
FINAL REPORT CLINICAL HISTORY: ET TUBE FINDINGS: SINGLE-VIEW CHEST There is cardiomegaly. Endotracheal tube tip is approximately 3 cm above the aurea. NG tube is present. The mediastinum is normal. There are bibasilar opacities, may represent atelectasis or pneumonia. There is no pneumothorax. IMPRESSION: Bibasilar atelectasis versus pneumonia. ET tube tip as above. Reviewed, Interpreted and Dictated by Orlando Yao III, MD Transcribed by Samantha Gregorio Authenticated and [facility]
--- NOTE | 2023-06-12 11:28 | P.PNANES_ITS ---
[facility] Anesthesia Record Part I Anesthesia Record I Intake, IV Amount: 800 Hydration: Adequate Estimated blood loss (mL): 5 Urine output (mL): 0 Blood Pressure: 117/81 SaO2: 94 Pulse Rate: 73 Airway Patency: Patent Respiratory Rate: 22 Temperature: 97.2 F Patient is:: Intubated, Stable and Ventilator Stable to PACU at:: 11:22
[2023-06-12 12:12] LABS: ABG Base Excess -1.7 mmol/L (-2.4-2.3); ABG HCO3 23.3 mmhg (22.0-26.0); ABG Oxygen Saturation 97 % (90-100); ABG PCO2 39.5 mmhg (35.0-45.0); ABG PH 7.39 mmol/L (7.35-7.45); ABG PO2 95.1 mmhg (80-100); ABG TCO2 24.5 mmhg (23-27)
[2023-06-12 12:14] LABS: Oxygen 100 %; PEEP 8; Tidal Volume 440; Vent Rate 22
[2023-06-12 12:15] LABS: Allen's Test ACCEPTABLE; Source R RADIAL
[2023-06-12] MEDS: FENTANYL CITRATE/PF 1,000 MCG in 0.9 % SODIUM CHLORIDE 80 ML 2 MCG IV (12:16)
[2023-06-12] MEDS: propofoL 100 ML 18.7800000000000011 MG IV (12:16)
--- NOTE | 2023-06-12 12:26 | PC.NURSE ---
arrived by stretcher from surgery
--- NOTE | 2023-06-12 12:30 | P.CONCA_ITS ---
History of Present Illness History of Present Illness Consult date: 06/12/23 Requesting physician: Kirk Carranza Consult reason: post-op evaluation Chief complaint: respiratory failure Additional Medical History:: History of present illness: 62-year-old white male relatively new patient of our practice who presented here in February with NSTEMI. He was transferred for four-vessel bypass. Postoperatively at that time he developed atrial fibrillation which we have been attempting to manage in the office. Patient was recently offered amiodarone but later declined to take. He was seen in follow-up yesterday still in A-fib and agreed to VIRGINIE cardioversion. He presented today and reported being NPO. After receiving 200 mg propofol patient had vomiting and O2 desaturation requiring emergent intubation in the endoscopy suite. He remained in A-fib with controlled rate throughout the entirety and never lost a pulse. He is being transferred to ICU and will be started on broad-spectrum antibiotics for aspiration pneumonia. [facility] Disclaimer: The information contained in this section may have been updated after the patient was seen, as this information can be updated by other users. Medical History Peyronie's disease Dupuytren's contracture of both hands Surgical History S/P CABG x 4 Family History Other No significant family history Social History Smoking Status: Never smoker alcohol intake: never substance use type: denies use current occupational status: employed Travel in the last 8 weeks: Inside the [place] caffeine: Yes Review of Systems Review of Systems Review of systems:: unable to obtain Review of systems (narrative): Unable to do obtain due to patient status Exam Data for Last 24 hours Vital signs and Labs for Last 24 Hours: Temp Pulse Resp BP Pulse Ox O2 Del Method O2 Flow Rate 97.2 F L 73 22 117/81 97 Simple Mask 10 06/12/23 11:30 06/12/23 11:30 06/12/23 11:30 06/12/23 11:30 06/12/23 09:45 06/12/23 10:40 06/12/23 10:40 Laboratory Results - last 24 hr 06/12/23 09:20: WBC 7.1, RBC 4.95, Hgb 15.3, Hct 46.2, MCV 93.5, MCH 31.0, MCHC 33.2, RDW 13.7, Plt Count 199, MPV 7.7, Neut % (Auto) 61.4, Lymph % (Auto) 28.9, [place] % (Auto) 5.7, Eos % (Auto) 2.8, Baso % (Auto) 1.2, Neut # (Auto) 4.4, Lymph # (Auto) 2.1, [place] # (Auto) 0.4, Eos # (Auto) 0.2, Baso # (Auto) 0.1, PT 11.7, INR 1.09, Sodium 140, Potassium 3.8, Chloride 106, Carbon Dioxide 29, Anion Gap 8.8, BUN 17, Creatinine 1.00, Estimated Creat Clear 114, Estimated GFR 76, Est GFR ( Amer) 92, Glucose 112 H, Calcium 8.8 06/12/23 11:50: Specimen Source R radial, O2 % 100, ABG pH 7.39, ABG pCO2 39.5, ABG pO2 95.1, ABG HCO3 23.3, ABG Total CO2 24.5, ABG O2 Saturation 97, ABG Base Excess -1.7, Saqib Test Acceptable, Vent Rate 22, Tidal Volume 440, PEEP 8 I & O for Last 24 hours: Intake & Output 06/09/23 06/10/23 06/11/23 06/12/23 23:59 23:59 23:59 23:59 Intake Total 800 / 800 Balance 800 / 800 Weight 230 lb Constitutional Comments: Sedated and intubated *Routine Respiratory Exam Respiratory: Present CTA bilaterally; Absent accessory muscle use, wheezes or crackles Comments: Intubated, slightly reduced breath sounds *Routine Cardiovascular Exam Cardiovascular: Present RRR, Normal S1, Normal S2 and irregular rhythm; Absent murmur, gallop or rubs *Routine Abdominal Exam Abdominal: Present soft *Routine Extremities Exam Extremities: Present pulses intact *Routine Skin Exam Skin: Present intact; Absent erythema or wounds *Routine Neurological Exam Comments: Sedating Routine Psychiatric Exam Comments: Sedated Meds Home Medications and Allergies Home Medications Medication Instructions Recorded Confirmed Type aspirin 81 mg tablet,delayed 81 mg PO DAILY #0 tabs 03/21/23 06/12/23 Rx release amiodarone 400 mg tablet 400 mg PO BID #60 tabs 05/29/23 06/12/23 Rx apixaban 5 mg tablet (Eliquis) 5 mg PO BID #60 tabs 05/29/23 06/12/23 Rx metoprolol tartrate 50 mg tablet 50 mg PO BID 05/29/23 06/12/23 History hydrochlorothiazide 25 mg tablet 25 mg PO DAILY #30 tabs 06/07/23 06/12/23 Rx valsartan 320 mg tablet 320 mg PO DAILY #30 tabs 06/11/23 06/11/23 Rx atorvastatin 80 mg tablet 80 mg PO HS 06/12/23 06/12/23 History New Prescriptions to Start Prescriptions: Allergies Allergy/AdvReac Type Severity Reaction Status Date / Time No Known Allergies Allergy Verified 06/12/23 09:42 Assessment and Plan *Assessment and plan (1) Acute hypoxic respiratory failure: Status: Acute Category: Medical Code(s): J96.01 - Acute respiratory failure with hypoxia (2) Aspiration into airway: Status: Acute Category: Medical Code(s): T17.908A - Unspecified foreign body in respiratory tract, part unspecified causing other injury, initial encounter (3) Atrial fibrillation: Status: Acute Qualifiers: Atrial fibrillation type: paroxysmal Qualified Code(s): I48.0 - Paroxysmal atrial fibrillation Category: Medical Code(s): I48.91 - Unspecified atrial fibrillation (4) S/P CABG x 4: Status: Acute Category: Surgical Code(s): Z95.1 - Presence of aortocoronary bypass graft Plan Acute Hypoxic Respiratory Failure secondary to aspiration - presumably pt was not fully NPO or has some undiagnosed delayed gastric emptying and developed vomiting from Propafol prior to VIRGINIE/DCCV attempt - ample suction noted - start empiric antibiotics including anaerobic coverage - Cephalosporin and Flagyl - vent settings per Pulmonology A-fib, CVR - persistant since CABG in February - was not able to attempt VIRGINIE/DCCV due to above aspiration event - will keep pt on Eliquis unless he has any noted bleeding from intubation - will attempt VIRGINIE/DCCV again tomorrow while pt is still intubated CAD, NV s/p CABG x4 02/2023 - cont eliquis, statin, metropol, valsartan Htn - recently escalated med therapy outpatient due to poor control - resume home meds as tolerated here Obesity - will address outpatient
[2023-06-12] MEDS: IPRATROPIUM/ALBUTEROL 3 ML NEB IH ×3 (12:47→23:55)
--- NOTE | 2023-06-12 12:51 | HMH.PHAINT1 ---
Pharmacy Intervention Comments: Home medication list completed via outside pharmacy and providers office/documentation
[2023-06-12] MEDS: propofoL 100 ML 40.6899999999999977 MG IV ×2 (13:53→16:11)
[2023-06-12 13:58] LABS: Microscopic, Urine URINE MICROSCOPIC (MICROSCOPIC)
--- NOTE | 2023-06-12 14:12 | PC.NURSE ---
Pt arrived to the unit at approx 1226. pt intubated and minimally sedated. pt noted to be reaching for and grabbing ETT. pt drips noted to be infusing at: Fentanyl 30mcg and diprovan 30mcg 1240 diprovan increased to 40mcg and fentanyl drip increased to 40mcg r/t pt still pulling and reaching for ETT. 1300 diprovan increased to 45mcg and fentanyl to 50mcg grabbing for and reaching for ETT. 1313 diprovan increased to 50mcg and fentanyl 75. Dr Carranza at bedside and is aware of difficulty sedating patient at this time. pt still grabbing for and holding onto ett. mittens placed on pt. 1345 diprovan to 55mcg and fentanyl 100mcg pt still alarming low paw, pt grabbing at ett, and tossing arms around in bed. 1410 diprovan increased to 65mcg and fentanyl to 105mcg pt grabbing for ett, low paw alarm. rr 32 RT aware.
[2023-06-12] MEDS: CEFTRIAXONE SODIUM 1 GM in 0.9 % SODIUM CHLORIDE 50 ML IV (14:33)
--- NOTE | 2023-06-12 14:51 | PC.NURSE ---
pt intubated and sedated, family oriented to room and call dent
--- NOTE | 2023-06-12 14:58 | EXP.HP ---
History of Present Illness *Admission Date: 06/12/23 *Reason for visit:: respiratory failure *History of present illness: Mr. Copeland is a 62-year-old male who presented for elective VIRGINIE and cardioversion due to new onset A-fib. Recently established with cardiology in February with NSTEMI. Was transferred for bypass surgery in February. Postop developed A-fib. He has been on amiodarone but not having good control of rate and has not been wanting to take it. Was brought in as an outpatient for VIRGINIE and cardioversion. After receiving sedation, developed nausea and had an aspiration event. Received 200 mg propofol and began to have significant vomiting and desaturation. Patient was emergently intubated in endoscopy. Stomach contents suctioned out of his bronchi. He is remained in A-fib. Medicine was contacted for admission to the ICU given mechanical ventilation and acute respiratory failure after aspiration. On evaluation, patient is sedated and on mechanical vent. Requiring 100% FiO2. Chest imaging reviewed showing left-sided diffuse opacification. Afebrile on initial evaluation. Family at bedside [facility] Disclaimer: The information contained in this section may have been updated after the patient was seen, as this information can be updated by other users. Medical History Peyronie's disease Dupuytren's contracture of both hands Surgical History S/P CABG x 4 Family History Other No significant family history Social History Smoking Status: Never smoker alcohol intake: never substance use type: denies use current occupational status: employed Travel in the last 8 weeks: [place] the [place] caffeine: Yes Review of Systems Review of Systems Review of systems:: unable to obtain Review of systems (narrative): intubated at time of interview Meds Home Medications and Allergies Home Medications Medication Instructions Recorded Confirmed Type aspirin 81 mg tablet,delayed 81 mg PO DAILY #0 tabs 03/21/23 06/12/23 Rx release amiodarone 400 mg tablet 400 mg PO BID #60 tabs 05/29/23 06/12/23 Rx apixaban 5 mg tablet (Eliquis) 5 mg PO BID #60 tabs 05/29/23 06/12/23 Rx metoprolol tartrate 50 mg tablet 50 mg PO BID 05/29/23 06/12/23 History hydrochlorothiazide 25 mg tablet 25 mg PO DAILY #30 tabs 06/07/23 06/12/23 Rx valsartan 320 mg tablet 320 mg PO DAILY #30 tabs 06/11/23 06/12/23 Rx atorvastatin 80 mg tablet 80 mg PO HS 06/12/23 06/12/23 History New Prescriptions to Start Prescriptions: Allergies Allergy/AdvReac Type Severity Reaction Status Date / Time No Known Allergies Allergy Verified 06/12/23 09:42 Exam Data for Last 24 hours Vital signs and Labs for Last 24 Hours: Temp Pulse Resp BP Pulse Ox O2 Del Method O2 Flow Rate 98.0 F 81 22 142/76 H 100 Mechanical Ventilation 10 06/12/23 12:50 06/12/23 14:00 06/12/23 14:00 06/12/23 14:00 06/12/23 14:00 06/12/23 14:00 06/12/23 10:40 FiO2 100 06/12/23 12:41 Laboratory Results - last 24 hr 06/12/23 09:20: WBC 7.1, RBC 4.95, Hgb 15.3, Hct 46.2, MCV 93.5, MCH 31.0, MCHC 33.2, RDW 13.7, Plt Count 199, MPV 7.7, Neut % (Auto) 61.4, Lymph % (Auto) 28.9, [place] % (Auto) 5.7, Eos % (Auto) 2.8, Baso % (Auto) 1.2, Neut # (Auto) 4.4, Lymph # (Auto) 2.1, [place] # (Auto) 0.4, Eos # (Auto) 0.2, Baso # (Auto) 0.1, PT 11.7, INR 1.09, Sodium 140, Potassium 3.8, Chloride 106, Carbon Dioxide 29, Anion Gap 8.8, BUN 17, Creatinine 1.00, Estimated Creat Clear 114, Estimated GFR 76, Est GFR ( Amer) 92, Glucose 112 H, Calcium 8.8 06/12/23 11:50: Specimen Source R radial, O2 % 100, ABG pH 7.39, ABG pCO2 39.5, ABG pO2 95.1, ABG HCO3 23.3, ABG Total CO2 24.5, ABG O2 Saturation 97, ABG Base Excess -1.7, Saqib Test Acceptable, Vent Rate 22, Tidal Volume 440, PEEP 8 I & O for Last 24 hours: Intake & Output 06/09/23 06/10/23 06/11/23 06/12/23 23:59 23:59 23:59 23:59 Intake Total 835.994 / 835.994 Output Total 350 / 350 Balance 485.994 / 485.994 Weight 104.326 kg 104.581 kg Constitutional Constitutional: no acute distress, obese and somnolent *Routine HEENT Exam Head: Present normocephalic Eye: Present EOMI and PERRL ENT: Present mucous membranes moist Comments: ET and OG in place *Routine Neck Exam Neck: Present supple; Absent lymphadenopathy *Routine Respiratory Exam Respiratory: Present patient mechanically ventilated, rhonchi and crackles Comments: Adventitious lung sounds left lung field *Routine Cardiovascular Exam Cardiovascular: Present tachycardia and irregularly irregular *Routine Abdominal Exam Abdominal: Present soft and normoactive bowel sounds; Absent tenderness *Routine Rectal Exam Rectal:: deferred *Routine Genitalia Exam Genitalia:: deferred *Routine Extremities Exam Extremities: Absent cyanosis, clubbing or edema *Routine Skin Exam Skin: Present warm; Absent rash *Routine Neurological Exam Neurological: Present altered mental status and moving all extremities Comments: Spontaneous movement. Sedated, not following commands Assessment and Plan *Assessment and plan (1) Acute hypoxic respiratory failure: Status: Acute Category: Medical Code(s): J96.01 - Acute respiratory failure with hypoxia (2) Aspiration into airway: Status: Acute Category: Medical Code(s): T17.908A - Unspecified foreign body in respiratory tract, part unspecified causing other injury, initial encounter (3) S/P CABG x 4: Status: Acute Category: Surgical Code(s): Z95.1 - Presence of aortocoronary bypass graft (4) Atrial fibrillation: Status: Acute Qualifiers: Atrial fibrillation type: paroxysmal Qualified Code(s): I48.0 - Paroxysmal atrial fibrillation Category: Medical Code(s): I48.91 - Unspecified atrial fibrillation (5) CAD (coronary artery disease): Status: Acute Qualifiers: Associated angina: without angina Coronary Disease-Associated Artery/Lesion type: bypass graft [place] vs. transplanted heart: [place] heart Qualified Code(s): I25.810 - Atherosclerosis of coronary artery bypass graft(s) without angina pectoris Category: Medical Code(s): I25.10 - Atherosclerotic heart disease of [place] coronary artery without angina pectoris (6) HLD (hyperlipidemia): Status: Acute Qualifiers: Hyperlipidemia type: unspecified Qualified Code(s): E78.5 - Hyperlipidemia, unspecified Category: Medical Code(s): E78.5 - Hyperlipidemia, unspecified (7) HTN (hypertension): Status: Acute Qualifiers: Hypertension type: unspecified Qualified Code(s): I10 - Essential (primary) hypertension Category: Medical Code(s): I10 - Essential (primary) hypertension (8) Class 1 obesity due to excess calories with body mass index (BMI) of 34.0 to 34.9 in adult: Status: Acute Category: Medical Code(s): E66.09 - Other obesity due to excess calories; Z68.34 - Body mass index [BMI] 34.0-34.9, adult Plan 62-year-old male with acute hypoxemic respiratory failure secondary to aspiration after receiving sedation. Discussed case with cardiology, request admission for further management and to reevaluate for possible VIRGINIE cardioversion in the morning. Medicine agreed to admit. Admitted to ICU level of care. Continues to require mechanical ventilation. Sedated with fentanyl and propofol. Pulmonology consulted to assist with critical care and vent management. Problems addressed as follows: Acute hypoxemic respiratory failure secondary to aspiration Aspiration pneumonia versus pneumonitis -Chest x-ray personally reviewed showing diffuse left-sided opacification with right lower lobe opacification. -Initiate antibiotics with ceftriaxone and azithromycin for aspiration pneumonia/pneumonitis - mechanical ventilation, currently FiO2 100%, Tidal volume 440, rate 22, PEEP 8 -Analgosedation with fentanyl and propofol -Pulmonology consulted to assist with care. -Will hold on steroids, monitor for hypotension with sedation. Develops hypotension, will initiate norepinephrine A-fib, CVR History of CAD History of CABG x 4 in February 2023 - persistent since CABG in February -Initially brought in for VIRGINIE and cardioversion. Failed to perform due to aspiration with sedation. Will continue to keep patient intubated and reattempt in the morning. -Continue Eliquis 5 mg twice daily per tube -Holding aspirin due to bleeding from trauma of intubation -Continue amiodarone 4 mg twice daily -Continue metoprolol 50 mg twice daily -Continue Lipitor 80 mg nightly Obesity complicates all aspects of his care Full code N.p.o. Eliquis 5 mg twice daily
[2023-06-12] MEDS: AZITHROMYCIN 500 MG in 0.9 % SODIUM CHLORIDE 250 ML 250 MG IV (15:02)
[2023-06-12 15:06] LABS: Appearance,Urine CLEAR (Clear); Bacteria,Urine Trace /lpf; Bilirubin,Urine Negative (Negative); Blood, Urine Negative (Negative); Color,Urine YELLOW (Yellow); Glucose,Urine (UA) Negative (Negative); Ketones,Urine Negative (Negative); Leukocyte Esterase,Urine Negative (Negative); Nitrate,Urine Negative (Negative); Protein,Urine TRACE (Negative); RBC,Urine Occasional #/hpf (0-3); Specific Gravity, Urine 1.015 (1.005-1.030); Squamous Epithelial Cell,Urine Occasional #/hpf (0-5); Urobilinogen,Urine 0.2 EU/dl (0.2); WBC,Urine Occasional #/hpf (0-3)
--- NOTE | 2023-06-12 16:29 | DIET.NUTRFU ---
RD consulted for TF order patient is intubated: start TF pulmocare at 20ml/hr increase every 4 hours to meet goals of 55ml/hr if tolerated to provide 1320ml formula/1980kcal/82gm protein and 1036ml, adjust flush based on IVF. Currently receiving lactated ringers for hydration. Adjust TF calories dependent on propofol dose.
[2023-06-12] MEDS: ACETAMINOPHEN 325MG/10.15ML UDC 650 MG PO (17:07)
--- NOTE | 2023-06-12 17:26 | PC.NURSE ---
pt fentanyl and propofol titrated r/t bps: 1630 99/73 1700 89/52 1704 82/51 1715 112/75
[2023-06-12 17:37] LABS: POC Glucose,Bedside 94 (70-110)
--- NOTE | 2023-06-12 18:21 | PC.NURSE ---
All documentation and care provided by Cindy Robles SN completed under the direct supervision of myself. Radha Hale RN
[2023-06-12] MEDS: propofoL 100 ML 34.4299999999999997 MG IV ×2 (18:44→21:37)
--- NOTE | 2023-06-12 18:54 | PC.NURSE ---
ice packs applied to kevin axilla and groin r/t temp of 101.4 following admin of tylenol at 1707. Dr Carranza notified face to face of pt temp and need for ice packs.
[2023-06-12] MEDS: FENTANYL CITRATE/PF 1,000 MCG in 0.9 % SODIUM CHLORIDE 80 ML 5 MCG IV (21:38)
[2023-06-12] MEDS: APIXABAN 5MG TABLET 5 MG PO (21:57)
[2023-06-12] MEDS: AMIODARONE 200MG TABLET 400 MG PO (21:57)
[2023-06-13] VITALS (70 sets, daily range): BP systolic 85–172; BP diastolic 42–89; PULSE 56–102; RESP 12–31; TEMP 36.6–38; O2SAT 94–100; BMI 34.9
--- NOTE | 2023-06-13 | CA_ITS ---
APPROVED REPORT EXAM: Comprehensive 2D, Doppler, and color-flow Echocardiogram Cushion Worker: Lashon Link RVT Ht: 5 ft 8 in Wt: 230lbs BSA: 2.17 BP: 118/64 mmHg Rhythm: Atrial Fibrillation Indications: A-FIB WITH CARDIOVERSION,CAD,CABG Procedure After obtaining informed consent, patient underwent transesophageal echo in the ICU. Type of Sedation : General Anesthesia Sedation was administered by Bedside RN. Sedation start time: 10:10 Case end Time: 10:20 Transesophageal probe was inserted and advanced into esophagus without difficulty by Dr. Jose Valdez. The VIRGINIE was performed without complications. Synchronized Cardioversion attempted: unsuccessful (brief conversion to NSR, but then returned to AFib) Throughout the procedure, the blood pressure, pulse oximetry, cardiac rhythm, and rate were monitored. The patient tolerated the procedure without adverse effects. Recovery from conscious sedation was uneventful and vital signs were stable. Left Ventricle The left ventricle is normal size. The left ventricular systolic function is normal. The left ventricular ejection fraction is within the normal range. There is increased LV wall thickness. There is normal LV segmental wall motion. LVEF is 55%. Right Ventricle Right ventricle is mildly dilated. Right ventricle is mildly hypokinetic. Atria The left atrium size is normal. No thrombus is visualized in the left atrium or appendage. The right atrium size is normal. Interatrial septum is intact without evidence of ASD or PFO. Aortic Valve The aortic valve is mildly thickened. There is no aortic valvular stenosis. No aortic regurgitation is present. Mitral Valve The mitral valve is normal in structure. No evidence of mitral valve stenosis. Trace mitral regurgitation. Tricuspid Valve The tricuspid valve leaflets are thin and pliable. Mild tricuspid regurgitation. RVSP is 15 mmHg + RA pressure. Pulmonic Valve The pulmonary valve is normal in structure. Trace pulmonic regurgitation. Great Vessels The aortic root is normal in size. The ascending aorta is normal in size. Pericardium There is no pericardial effusion. Other Information Study Quality: Fair Conclusion Normal LV systolic function. Mildly dilated RV with mild reduction in RV function. Mild TR. No evidence of LA or CARLOS thrombus. The patient underwent VIRGINIE/attempted DCCV at the bedside in the setting of being mechanically ventlated. Once VIRGINIE demonstrated that the LA and CARLOS were cleared without evidence of thrombus, he underwent 2 cardioversions of 150 J and 200 J, respectively. After both occasions, he converted briefly to normal sinus rhythm then back into atrial fibrillation within a few seconds. The decision was eventually made to load with amiodarone for 24 hours, then reattempt cardioversion. Of note, the patient was initially scheduled to undergo VIRGINIE/cardioversion 1 day prior as an outpatient. However, at the time, he initially received sedation and coughed thereafter (prior to VIRGINIE insertion), resulting in aspiration pneumonitis and rapid hypoxic respiratory failure. Then rapid response was called, he was intubated to protect his airways and improve oxygen levels. He was then transferred to the ICU for stabilization. The plan afterwards was to maintain his airways as he recovers from his aspiration pneumonitis, then undergo VIRGINIE/DCCV while intubated, then extubate thereafter. Electronically signed by : Casandra Valdez MD 06/17/2023 11:28:40
[2023-06-13] MEDS: NOREPINEPHRINE BITARTRATE/D5W 8 MG/250 ML PLAST..BAG 3.75 MG IV (01:36)
[2023-06-13] MEDS: propofoL 100 ML 31.3000000000000007 MG IV ×4 (05:17→19:58)
[2023-06-13] MEDS: FENTANYL CITRATE/PF 1,000 MCG in 0.9 % SODIUM CHLORIDE 80 ML 5 MCG IV ×2 (05:17→16:02)
--- NOTE | 2023-06-13 06:00 | XR_ITS ---
PROCEDURE INFORMATION: Exam: XR Chest Exam date and time: 06/13/2023 6:00 AM Age: 62 years old Clinical indication: Device placement; Ett placement (vent status); Additional info: Verify ett and ng tube TECHNIQUE: Imaging protocol: Radiologic exam of the chest. Views: 1 view. COMPARISON: CR XR CHEST PORTABLE 06/12/2023 11:16 AM FINDINGS: Tubes, catheters and devices: Endotracheal tube projects 1.8 cm from the aurea. Enteric tube crosses midline, catheter tip and side port not within field of view. Lungs: Redemonstrated bibasilar and central patchy opacification, which have increased in prominence from prior comparison. Pleural spaces: Blunting of the left costophrenic angle. Heart/Mediastinum: Unremarkable. No cardiomegaly. Bones/joints: Status post sternotomy changes. Diffuse degenerative changes of the visualized osseous structures. IMPRESSION: 1. Medical devices as above. 2. Interval worsening of multifocal airspace disease with interval appearance of small to moderate-sized pleural effusion. Findings suggestive of vascular congestion, superimposed infection can not be ruled out.
[2023-06-13 06:53] LABS: Basophils # 0.1 K/mm3 (0-0.2); Basophils % 0.6 % (0.1-2.0); Eosinophils # 0.1 K/mm3 (0.0-0.4); Eosinophils % 0.7 % (0.1-12.0); Hematocrit 44.7 % (42.0-52.0); Hemoglobin 14.4 g/dL (14.1-18.0); Lymphocytes # 2.8 K/mm3 (0.7-4.5); Lymphocytes % 16.5 % (10-50); Mean Corpuscular HGB Conc 32.3 g/dL (31.8-35.4); Mean Corpuscular Hemoglobin 30.4 pg (27.0-31.2); Mean Corpuscular Volume 94.2 fl (80-94); Mean Platelet Volume 8.1 fl (7.4-10.4); Monocytes # 0.6 K/mm3 (0.1-1.0); Monocytes % 3.5 % (1.7-9.3); Neutrophils # 13.2 K/mm3 (1.8-7.8); Neutrophils % 78.7 % (37.0-80.0); Platelet Count 214 K/mm3 (142-424); Red Blood Count 4.74 M/mm3 (4.60-6.20); Red Cell Distribution Width 13.9 % (11.5-17.5); White Blood Count 16.8 K/mm3 (4.8-10.8)
[2023-06-13] MEDS: IPRATROPIUM/ALBUTEROL 3 ML NEB IH (06:54)
[2023-06-13 06:58] LABS: MANUAL DIFFERENTIAL MANUAL DIFFERENTIAL (MANUAL DIFF)
[2023-06-13 07:05] LABS: Alanine Aminotransferase 20 U/L (12-78); Albumin Level 3.8 g/dl (3.5-5.0); Albumin/Globulin Ratio 1.3 (1.1-1.8); Alkaline Phosphatase 79 U/L (38-126); Aspartate Amino Transferase 30 U/L (17-59); Bilirubin,Total 1.3 mg/dl (0.2-1.3); Blood Urea Nitrogen 20 mg/dl (9-20); Calcium 8.2 mg/dl (8.4-10.2); Carbon Dioxide 27 mmol/L (22.0-30.0); Chloride 104 mmol/L (98-107); Creatinine Clearance Estimated 96 mL/min (50-200); Estimated Glomerular Filt Rate 62 ml/min (>60); GFR (African American) 74 ML/MIN (>60); Globulin 2.9 g/dL (1.3-3.2); Glucose 132 mg/dl (74-100); Sodium 139 mmol/L (136-145); Total Protein,Serum 6.7 g/dl (6.3-8.2)
[2023-06-13 07:40] LABS: POC Glucose,Bedside 124 (70-110)
[2023-06-13 07:40] LABS: POC Glucose,Bedside 98 (70-110)
--- NOTE | 2023-06-13 08:18 | PC.NURSE ---
All documentation and care provided by Cindy TOUSSAINT was completed under the direct supervision of myself. Radha Hale RN
[2023-06-13] MEDS: AMIODARONE 200MG TABLET 400 MG PO (08:40)
[2023-06-13] MEDS: METOPROLOL TARTRATE 50MG TABLET 50 MG PO ×2 (08:40→20:04)
[2023-06-13] MEDS: APIXABAN 5MG TABLET 5 MG PO ×2 (08:40→20:04)
[2023-06-13] MEDS: ACETAMINOPHEN 325MG/10.15ML UDC 650 MG PO ×2 (08:40→16:07)
[2023-06-13 08:50] LABS: Lymphocytes % 16 % (10-50); Monocytes % 5 % (2-9); Neutrophils % 72 % (42-76); Total Cells Counted 100
--- NOTE | 2023-06-13 08:54 | P.PN_ITS ---
Subjective *Date: 06/13/23 *Time: 19:13 Interval history: Remains intubated. Tolerating vent. Settings improving. Attempt to cardiovert this morning was unsuccessful. Developed fever overnight. Potassium low, replacing. Family at bedside, discussed plan. Medical Exam Vital signs and Labs for Last 24 Hours: Vital Signs Temp Pulse Pulse Pulse Resp BP BP 06/13/23 08:02 100.2 F H 06/13/23 08:00 86 06/13/23 07:00 77 22 102/56 L 06/13/23 07:00 06/13/23 06:55 60 06/13/23 06:55 92 H 06/13/23 06:55 27 H 06/13/23 06:00 88 12 111/60 06/13/23 05:00 80 28 H 115/63 06/13/23 04:00 97.9 F 06/13/23 04:00 86 27 H 06/13/23 04:00 82 28 H 139/72 06/13/23 04:00 80 06/13/23 04:00 29 H 06/13/23 03:00 80 26 H 95/52 L 06/13/23 02:00 92 H 30 H 121/67 06/13/23 01:43 31 H 06/13/23 01:00 59 L 25 H 120/54 L 06/13/23 00:05 88 06/13/23 00:05 87 06/13/23 00:05 31 H 06/13/23 00:00 80 06/13/23 00:00 79 06/13/23 00:00 101 H 28 H 137/78 06/12/23 23:00 94 H 30 H 96/48 L 06/12/23 22:19 29 H 06/12/23 22:00 79 23 113/63 06/12/23 21:00 89 23 90/56 L 06/12/23 20:15 27 H 06/12/23 20:00 110 H 06/12/23 20:00 95 H 06/12/23 19:46 100.9 F H 06/12/23 19:00 101.4 F H 81 26 H 109/53 L 06/12/23 18:53 06/12/23 18:41 86 06/12/23 18:41 69 06/12/23 18:41 27 H 06/12/23 18:41 03/20/24 18:00 65 22 90/52 L 06/12/23 17:30 92 H 108/63 L 06/12/23 17:18 125 H 112/75 06/12/23 17:15 104 H 26 H 112/75 06/12/23 17:00 84 26 H 89/52 L 06/12/23 17:00 84 22 89/52 L 06/12/23 17:00 06/12/23 16:30 82 26 H 99/73 L 06/12/23 16:00 100 H 06/12/23 16:00 87 06/12/23 16:00 101.3 F H 89 26 H 108/59 L 06/12/23 16:00 101.3 F H 87 22 108/59 L 06/12/23 15:30 88 30 H 112/62 06/12/23 15:00 06/12/23 15:00 89 22 06/12/23 14:30 65 30 H 153/79 H 06/12/23 14:00 92 H 30 H 142/76 H 06/12/23 14:00 81 22 06/12/23 13:45 70 30 H 144/84 H 06/12/23 13:17 64 30 H 153/87 H 06/12/23 13:13 60 33 H 145/107 H 06/12/23 13:08 76 33 H 164/96 H 06/12/23 13:00 06/12/23 12:50 98.0 F 06/12/23 12:42 65 06/12/23 12:41 70 06/12/23 12:41 63 06/12/23 12:41 25 H 06/12/23 12:30 97 H 06/12/23 12:17 78 22 06/12/23 12:12 78 22 06/12/23 12:07 82 22 06/12/23 12:02 71 22 06/12/23 11:57 72 22 06/12/23 11:52 67 22 06/12/23 11:47 66 22 06/12/23 11:42 68 21 06/12/23 11:37 79 21 06/12/23 11:32 70 22 06/12/23 11:30 97.2 F L 73 22 117/81 06/12/23 11:27 76 22 06/12/23 11:22 79 20 06/12/23 10:40 06/12/23 09:45 97.4 F L 60 17 BP Pulse Ox O2 Del Method O2 Flow Rate FiO2 06/13/23 08:02 06/13/23 08:00 100 Mechanical Ventilation 35 06/13/23 07:00 100 Mechanical Ventilation 06/13/23 07:00 Mechanical Ventilation 06/13/23 06:55 06/13/23 06:55 06/13/23 06:55 100 35 06/13/23 06:00 100 Mechanical Ventilation 35 06/13/23 05:00 100 Mechanical Ventilation 35 06/13/23 04:00 06/13/23 04:00 100 Mechanical Ventilation 35 06/13/23 04:00 100 35 06/13/23 04:00 06/13/23 04:00 100 36 06/13/23 03:00 100 Mechanical Ventilation 50 06/13/23 02:00 100 Mechanical Ventilation 50 06/13/23 01:43 99 51 06/13/23 01:00 94 L 65 06/13/23 00:05 06/13/23 00:05 06/13/23 00:05 100 66 06/13/23 00:00 06/13/23 00:00 100 Mechanical Ventilation 65 06/13/23 00:00 100 Mechanical Ventilation 65 06/12/23 23:00 100 Mechanical Ventilation 75 06/12/23 22:19 100 76 06/12/23 22:00 100 Mechanical Ventilation 06/12/23 21:00 100 Mechanical Ventilation 06/12/23 20:15 100 91 06/12/23 20:00 06/12/23 20:00 100 Mechanical Ventilation 100 06/12/23 19:46 06/12/23 19:00 100 Mechanical Ventilation 100 06/12/23 18:53 Mechanical Ventilation 06/12/23 18:41 06/12/23 18:41 06/12/23 18:41 100 100 06/12/23 18:41 100 Mechanical Ventilation 100 06/12/23 18:00 100 Mechanical Ventilation 100 06/12/23 17:30 100 Mechanical Ventilation 100 06/12/23 17:18 06/12/23 17:15 100 Mechanical Ventilation 100 06/12/23 17:00 100 Mechanical Ventilation 100 06/12/23 17:00 100 Mechanical Ventilation 06/12/23 17:00 Mechanical Ventilation 06/12/23 16:30 100 Mechanical Ventilation 100 06/12/23 16:00 06/12/23 16:00 100 Mechanical Ventilation 100 06/12/23 16:00 100 Mechanical Ventilation 100 06/12/23 16:00 100 Mechanical Ventilation 06/12/23 15:30 100 Mechanical Ventilation 100 06/12/23 15:00 Mechanical Ventilation 06/12/23 15:00 125/76 100 Mechanical Ventilation 100 06/12/23 14:30 100 Mechanical Ventilation 100 06/12/23 14:00 100 Mechanical Ventilation 100 06/12/23 14:00 142/76 H 100 Mechanical Ventilation 06/12/23 13:45 100 Mechanical Ventilation 100 06/12/23 13:17 100 Mechanical Ventilation 100 06/12/23 13:13 100 Mechanical Ventilation 100 06/12/23 13:08 100 Mechanical Ventilation 100 06/12/23 13:00 Mechanical Ventilation 06/12/23 12:50 06/12/23 12:42 06/12/23 12:41 06/12/23 12:41 06/12/23 12:41 100 100 06/12/23 12:30 100 Mechanical Ventilation 100 06/12/23 12:17 154/105 H 98 Mechanical Ventilation 06/12/23 12:12 138/98 H 98 Mechanical Ventilation 06/12/23 12:07 121/65 98 Mechanical Ventilation 06/12/23 12:02 161/88 H 98 Mechanical Ventilation 06/12/23 11:57 155/84 H 98 Mechanical Ventilation 06/12/23 11:52 160/82 H 97 Mechanical Ventilation 06/12/23 11:47 161/98 H 98 Mechanical Ventilation 06/12/23 11:42 152/86 H 97 Mechanical Ventilation 06/12/23 11:37 140/74 94 L Mechanical Ventilation 06/12/23 11:32 128/75 95 Mechanical Ventilation 06/12/23 11:30 06/12/23 11:27 139/72 94 L Mechanical Ventilation 06/12/23 11:22 117/81 93 L Mechanical Ventilation 06/12/23 10:40 Simple Mask 10 06/12/23 09:45 128/79 97 Room Air Intake and Output 06/12/23 06/13/23 06/13/23 23:59 07:59 15:59 Intake Total 411.025 / 1351.394 680.372 / 719.144 38.772 / 719.144 Output Total 187 / 752 1085 / 1262 177 / 1262 Balance 224.025 / 599.394 -404.628 / -542.856 -138.228 / -542.856 Intake: Intake, Total IV Amount 411.025 / 1351.394 680.372 / 719.144 38.772 / 719.144 Azithromycin 500 mg In 0.9 % 100 / 100 Sodium Chloride 250 ml @ 250 mls/hr IV Q24H KELL Rx#:[id number] Fentanyl Citrate/Pf 1,000 mcg 67 / 67 In 0.9 % Sodium Chloride 80 ml @ 50 MCG/HR 5 mls/hr IV .Q21H KELL Rx#:[id number] Norepinephrine Bitartrate/D5w 8 39 / 39 mg In 250 ml @ 4 MCG/MIN 7.5 mls/hr IV .Q24H KELL Rx#: [id number] propofoL 100 ml @ 50 MCG/KG/MIN 363 / 363 31.298 mls/hr IV .Q3H12M KELL Rx#:[id number] Output: Output, Urine Amount (Catheter) 187 / 552 1085 / 1262 177 / 1262 [place] 187 / 552 1085 / 1262 177 / 1262 Other: Weight 104.58 kg 104.6 kg Patient Weight 06/13/23 23:59 Weight 104.6 kg Laboratory Results - last 24 hr 06/12/23 09:20: WBC 7.1, RBC 4.95, Hgb 15.3, Hct 46.2, MCV 93.5, MCH 31.0, MCHC 33.2, RDW 13.7, Plt Count 199, MPV 7.7, Neut % (Auto) 61.4, Lymph % (Auto) 28.9, [place] % (Auto) 5.7, Eos % (Auto) 2.8, Baso % (Auto) 1.2, Neut # (Auto) 4.4, Lymph # (Auto) 2.1, [place] # (Auto) 0.4, Eos # (Auto) 0.2, Baso # (Auto) 0.1, PT 11.7, INR 1.09, Sodium 140, Potassium 3.8, Chloride 106, Carbon Dioxide 29, Anion Gap 8.8, BUN 17, Creatinine 1.00, Estimated Creat Clear 114, Estimated GFR 76, Est GFR ( Amer) 92, Glucose 112 H, Calcium 8.8 06/12/23 11:30: Urine Color Yellow, Urine Appearance Clear, Urine pH 7.0, Ur S pecific [place] 1.015, Urine Protein Trace, Urine Glucose (UA) Negative, Urine Ketones Negative, Urine Blood Negative, Urine Nitrate Negative, Urine Bilirubin Negative, Urine Urobilinogen 0.2, Ur Leukocyte Esterase Negative, Urine RBC Occasional, Urine WBC Occasional, Ur Squamous Epith Cells Occasional, Urine Bacteria Trace 06/12/23 11:50: Specimen Source R radial, O2 % 100, ABG pH 7.39, ABG pCO2 39.5, ABG pO2 95.1, ABG HCO3 23.3, ABG Total CO2 24.5, ABG O2 Saturation 97, ABG Base Excess -1.7, Saqib Test Acceptable, Vent Rate 22, Tidal Volume 440, PEEP 8 06/12/23 17:29: POC Glucose 94 06/12/23 22:25: POC Glucose 98 06/13/23 06:24: WBC 16.8 H D, RBC 4.74, Hgb 14.4, Hct 44.7, MCV 94.2 H, MCH 30.4, MCHC 32.3, RDW 13.9, Plt Count 214, MPV 8.1, Neut % (Auto) 78.7, Lymph % (Auto) 16.5, [place] % (Auto) 3.5, Eos % (Auto) 0.7, Baso % (Auto) 0.6, Neut # (Auto) 13.2 H, Lymph # (Auto) 2.8, [place] # (Auto) 0.6, Eos # (Auto) 0.1, Baso # (Auto) 0.1, Sodium 139, Potassium 3.0 L D, Chloride 104, Carbon Dioxide 27, Anion Gap 11.0, BUN 20, Creatinine 1.20, Estimated Creat Clear 96, Estimated GFR 62, Est GFR ( Amer) 74, Glucose 132 H, Calcium 8.2 L, Magnesium 2.0, Tota l Bilirubin 1.3, AST 30, ALT 20, Alkaline Phosphatase 79, Total Protein 6.7, Albumin 3.8, Globulin 2.9, Albumin/Globulin Ratio 1.3 06/13/23 06:30: POC Glucose 124 H I & O for Labs for Last 24 Hours: Intake & Output 06/10/23 06/11/23 06/12/23 06/13/23 23:59 23:59 23:59 23:59 Intake Total 1351.394 / 1351.394 719.144 / 719.144 Output Total 692 / 752 1262 / 1262 Balance 659.394 / 599.394 -542.856 / -542.856 Weight 104.326 kg 104.58 kg 104.6 kg Constitutional: Present no acute distress, obese and somnolent Head: Present atraumatic ENT: Present normal exam Comment:: ET and OG in place Neck: Present normal inspection Respiratory: Present patient mechanically ventilated and crackles (Left lung field); Absent wheezes Comment:: Irregularly irregular GI: Present soft and normal bowel sounds; Absent distention or tenderness Extremities: Present normal inspection and full ROM Skin: Present intact; Absent erythema Neuro: Present Grossly Intact and moves all extremities (Spontaneously) Comment:: Alert when sedation weaned. Currently intubated and sedated Assessment and Plan *Assessment and plan (1) Acute hypoxic respiratory failure: Status: Acute Category: Medical Code(s): J96.01 - Acute respiratory failure with hypoxia (2) Aspiration into airway: Status: Acute Category: Medical Code(s): T17.908A - Unspecified foreign body in respiratory tract, part unspecified causing other injury, initial encounter (3) S/P CABG x 4: Status: Acute Category: Surgical Code(s): Z95.1 - Presence of aortocoronary bypass graft (4) Atrial fibrillation: Status: Acute Qualifiers: Atrial fibrillation type: paroxysmal Qualified Code(s): I48.0 - Paroxysmal atrial fibrillation Category: Medical Code(s): I48.91 - Unspecified atrial fibrillation (5) CAD (coronary artery disease): Status: Acute Qualifiers: Associated angina: without angina Coronary Disease-Associated Artery/Lesion type: bypass graft [place] vs. transplanted heart: [place] heart Qualified Code(s): I25.810 - Atherosclerosis of coronary artery bypass graft(s) without angina pectoris Category: Medical Code(s): I25.10 - Atherosclerotic heart disease of [place] coronary artery without angina pectoris (6) HLD (hyperlipidemia): Status: Acute Qualifiers: Hyperlipidemia type: unspecified Qualified Code(s): E78.5 - Hyperlipidemia, unspecified Category: Medical Code(s): E78.5 - Hyperlipidemia, unspecified (7) HTN (hypertension): Status: Acute Qualifiers: Hypertension type: unspecified Qualified Code(s): I10 - Essential (primary) hypertension Category: Medical Code(s): I10 - Essential (primary) hypertension (8) Class 1 obesity due to excess calories with body mass index (BMI) of 34.0 to 34.9 in adult: Status: Acute Category: Medical Code(s): E66.09 - Other obesity due to excess calories; Z68.34 - Body mass index [BMI] 34.0-34.9, adult Plan 62-year-old male with acute hypoxemic respiratory failure secondary to aspiration after receiving sedation. Discussed case with cardiology, request admission for further management and to reevaluate for possible VIRGINIE cardioversion in the morning. Medicine agreed to admit. Admitted to ICU level of care. Continues to require mechanical ventilation. Sedated with fentanyl and propofol. Pulmonology consulted to assist with critical care and vent management. Attempted cardioversion this morning, did not convert to sinus rhythm. Patient placed on SBT, did well but not stable for extubation as of yet. Cardiology planning on reattempting cardioversion in the morning, will le ave intubated until tomorrow. Continues to require inpatient management. Problems addressed as follows: Acute hypoxemic respiratory failure secondary to aspiration Aspiration pneumonia versus pneumonitis -Chest x-ray personally reviewed today which continues to show diffuse left- sided opacification with right lower lobe opacification. -Continue empiric antibiotics with ceftriaxone and azithromycin for aspiration pneumonia/pneumonitis - mechanical ventilation, currently FiO2 30%, Tidal volume 440, rate 22, PEEP 8 -Analgosedation with fentanyl and propofol -Pulmonology consulted to assist with care. Discussed case this morning, vent settings improving. SBT daily. Anticipate possible extubation tomorrow after reattempted cardioversion if does as well tomorrow as he did today. -Continue norepinephrine for hypotension as needed for goal MAP greater than 65 A-fib, CVR History of CAD History of CABG x 4 in February 2023 - persistent since CABG in February -Attempted cardioversion today, unsuccessful. Will reattempt tomorrow. -Initiated on amiodarone drip. Will give IV bolus and load while continuing oral 400 mg 3 times daily -Continue Eliquis 5 mg twice daily per tube -Holding aspirin due to bleeding from trauma of intubation -Continue metoprolol 50 mg twice daily -Continue Lipitor 80 mg nightly Obesity complicates all aspects of his care Full code N.p.o. Eliquis 5 mg twice daily
[2023-06-13 09:00] LABS: Platelet Estimate Normal; RBC Morphology Normal
[2023-06-13] MEDS: KCl 10mEq/100ml 100 ML 100 MEQ IV ×3 (09:49→12:01)
--- NOTE | 2023-06-13 09:58 | P.CONS_ITS ---
History of Present Illness History of present illness: Mr. Flores is a 62-year-old male reported history of A-fib presented for an elective cardioversion experience an episode of nausea and vomiting after receiving propofol and a questionable aspiration event followed by hypoxic respiratory failure needing intubation mechanical ventilatory support For further evaluation and management. [facility] Disclaimer: The information contained in this section may have been updated after the patient was seen, as this information can be updated by other users. Medical History (Updated 06/13/23 @ 12:53 by Kyle Mcnamara MD) Pleural effusion, left On mechanically assisted ventilation Pneumonia Peyronie's disease Dupuytren's contracture of both hands Surgical History S/P CABG x 4 Family History Other No significant family history Social History Smoking Status: Never smoker alcohol intake: never substance use type: denies use current occupational status: employed Travel in the last 8 weeks: Inside the [place] caffeine: Yes Review of Systems Review of Systems Review of systems:: unable to obtain Review of systems (narrative): Intubated and sedated Pulmonology Exam Inpatient Vital signs and Labs for Last 24 Hours: Temp Pulse Resp BP Pulse Ox O2 Del Method O2 Flow Rate 100.2 F H 84 22 126/59 L 100 Mechanical Ventilation 10 06/13/23 08:02 06/13/23 09:00 06/13/23 09:00 06/13/23 09:00 06/13/23 09:00 06/13/23 09:00 06/12/23 10:40 FiO2 35 06/13/23 09:00 Laboratory Results - last 24 hr 06/12/23 09:20: WBC 7.1, RBC 4.95, Hgb 15.3, Hct 46.2, MCV 93.5, MCH 31.0, MCHC 33.2, RDW 13.7, Plt Count 199, MPV 7.7, Neut % (Auto) 61.4, Lymph % (Auto) 28.9, [place] % (Auto) 5.7, Eos % (Auto) 2.8, Baso % (Auto) 1.2, Neut # (Auto) 4.4, Lymph # (Auto) 2.1, [place] # (Auto) 0.4, Eos # (Auto) 0.2, Baso # (Auto) 0.1 06/12/23 11:30: Urine Color Yellow, Urine Appearance Clear, Urine pH 7.0, Ur Specific [place] 1.015, Urine Protein Trace, Urine Glucose (UA) Negative, Urine Ketones Negative, Urine Blood Negative, Urine Nitrate Negative, Urine Bilirubin Negative, Urine Urobilinogen 0.2, Ur Leukocyte Esterase Negative, Urine RBC Occasional, Urine WBC Occasional, Ur Squamous Epith Cells Occasional, Urine Bacteria Trace 06/12/23 11:50: Specimen Source R radial, O2 % 100, ABG pH 7.39, ABG pCO2 39.5, ABG pO2 95.1, ABG HCO3 23.3, ABG Total CO2 24.5, ABG O2 Saturation 97, ABG Base Excess -1.7, Saqib Test Acceptable, Vent Rate 22, Tidal Volume 440, PEEP 8 06/12/23 17:29: POC Glucose 94 06/12/23 22:25: POC Glucose 98 06/13/23 06:24: WBC 16.8 H D, RBC 4.74, Hgb 14.4, Hct 44.7, MCV 94.2 H, MCH 30.4, MCHC 32.3, RDW 13.9, Plt Count 214, MPV 8.1, Neut % (Auto) 78.7, Lymph % (Auto) 16.5, [place] % (Auto) 3.5, Eos % (Auto) 0.7, Baso % (Auto) 0.6, Neut # (Auto) 13.2 H, Lymph # (Auto) 2.8, [place] # (Auto) 0.6, Eos # (Auto) 0.1, Baso # (Auto) 0.1, Total Counted 100, Neutrophils % (Manual) 72, Band Neutrophils % 7.0, Lymphocytes % (Manual) 16, Monocytes % (Manual) 5, Platelet Estimate Normal, RBC Morphology Normal, Sodium 139, Potassium 3.0 L D, Chloride 104, Carbon Dioxide 27, Anion Gap 11.0, BUN 20, Creatinine 1.20, Estimated Creat Clear 96, Estimated GFR 62, Est GFR ( Amer) 74, Glucose 132 H, Calcium 8.2 L, Magnesium 2.0, Total Bilirubin 1.3, AST 30, ALT 20, Alkaline Phosphatase 79, Total Protein 6.7, Albumin 3.8, Globulin 2.9, Albumin/Globulin Ratio 1.3 06/13/23 06:30: POC Glucose 124 H I & O for Labs for Last 24 Hours: Intake & Output 06/10/23 06/11/23 06/12/23 06/13/23 23:59 23:59 23:59 23:59 Intake Total 1351.394 / 1351.394 767.137 / 767.137 Output Total 692 / 752 1412 / 1412 Balance 659.394 / 599.394 -644.863 / -644.863 Weight 230 lb 230 lb 8.951 oz 230 lb 9.656 oz Constitutional: Present severe distress Comment:: Intubated and Sedated Head: Present normocephalic and atraumatic Neck: Present normal inspection and trachea midline Respiratory: Present patient mechanically ventilated, respiratory distress and rhonchi; Absent prolonged expiratory phase or wheezes Cardiac: Present S1/S2; Absent Regular Rhythm GI: Present soft; Absent distention or tenderness Skin: Present intact; Absent cyanosis Neuro: Absent alert, awake or oriented x 3 Comment:: Intubated and sedated Extremities: Present normal inspection; Absent clubbing or cyanosis Psychiatric: Present unable to assess Meds Home Medications and Allergies Home Medications Medication Instructions Recorded Confirmed Type aspirin 81 mg tablet,delayed 81 mg PO DAILY #0 tabs 03/21/23 06/12/23 Rx release amiodarone 400 mg tablet 400 mg PO BID #60 tabs 05/29/23 06/12/23 Rx apixaban 5 mg tablet (Eliquis) 5 mg PO BID #60 tabs 05/29/23 06/12/23 Rx metoprolol tartrate 50 mg tablet 50 mg PO BID 05/29/23 06/12/23 History hydrochlorothiazide 25 mg tablet 25 mg PO DAILY #30 tabs 06/07/23 06/12/23 Rx valsartan 320 mg tablet 320 mg PO DAILY #30 tabs 06/11/23 06/12/23 Rx atorvastatin 80 mg tablet 80 mg PO HS 06/12/23 06/12/23 History New Prescriptions to Start Prescriptions: Allergies Allergy/AdvReac Type Severity Reaction Status Date / Time No Known Allergies Allergy Verified 06/12/23 09:42 Results Laboratory Findings 06/13/23 06:24 06/13/23 06:24 ABG ABG pH 7.39 mmol/L (7.35-7.45) 06/12/23 11:50 ABG pCO2 39.5 mmhg (35.0-45.0) 06/12/23 11:50 ABG pO2 95.1 mmhg (80-100) 06/12/23 11:50 ABG O2 Saturation 97 % (90-100) 06/12/23 11:50 PT/INR, D-dimer PT 11.7 seconds (10.1-12.5) 06/12/23 09:20 INR 1.09 (0.9-1.1) 06/12/23 09:20 Abnormal lab findings: Abnormal Labs 06/12/23 06/13/23 06/13/23 09:20 06:24 06:30 WBC 16.8 H D MCV 94.2 H Neut # (Auto) 13.2 H Potassium 3.0 L D Glucose 112 H 132 H POC Glucose 124 H Calcium 8.2 L Assessment and Plan *Assessment and plan (1) Acute hypoxic respiratory failure: Status: Acute Category: Medical Code(s): J96.01 - Acute respiratory failure with hypoxia (2) Pneumonia: Status: Acute Qualifiers: Pneumonia type: due to unspecified organism Laterality: right Lung location: lower lobe of lung Qualified Code(s): J18.9 - Pneumonia, unspecified organism Category: Medical Code(s): J18.9 - Pneumonia, unspecified organism (3) On mechanically assisted ventilation: Status: Acute Category: Medical Code(s): Z99.11 - Dependence on respirator [ventilator] status (4) Pleural effusion, left: Status: Acute Category: Medical Code(s): J90 - Pleural effusion, not elsewhere classified Plan Mr. Flores is a 62-year-old male reported history of A-fib presented for an elective cardioversion experience an episode of nausea and vomiting after receiving propofol and a questionable aspiration event followed by hypoxic respiratory failure needing intubation mechanical ventilatory support For further evaluation and management. CTA from February 2023 no acute airspace disease noted. Chest x-ray postintubation right middle lobe and lower lobe airspace disease noted. Neutrophilic leukocytosis. Currently receiving ceftriaxone azithromycin pending culture results. Minimal ventilatory settings, FiO2 30%, PEEP of 5. Cardiology following. Plan for cardioversion again tomorrow. Patient will remain intubated until then. Plan: Continue propofol and fentanyl for sedation. Cardiology wants patient to be intubated until cardioversion given his recent complications/intolerance with awake cardioversion. Currently scheduled tomorrow. Will wean sedation and perform SBT later today. Will hold off on extubation. Chest x-ray with right middle and lower lobe infiltrates. Small left effusion. Continue ceftriaxone azithromycin. Follow with tracheal aspirate results and nasal MRSA PCR DuoNebs every 6 hours on as-needed basis Current to current ventilator settings and PEEP of 5 FiO2 of 30% , Vt 420 and rate of 18. Hemodynamically unstable. On norepinephrine. Likely from sedation but will closely monitor. Follow with cultures. Abdomen soft nontender. BUN/creatinine normal. Good replacements as per primary team and cardiology. Adequate urine output. Renal artery duplex no obvious evidence of renal artery stenosis. - Continue mechanical ventilatory support - Continue AnalgoSedation with Propofol and Fentanyl with CPOT gal less than or euqal to 2 and RASS goal of to 2 (No need for deep sedation) - VAP bundle Recommend elevate head of the bed at 30 to 45 degrees Recommend oral care with chlorhexidne Recommend GI ulcer prophylaxis - Famotidine 20mg IV BID Recommend chemical DVT prophylaxis
[2023-06-13] MEDS: propofoL 100 ML 40.6899999999999977 MG IV (10:04)
[2023-06-13] MEDS: AMIODARONE HCL 150 MG in DEXTROSE 5 % IN WATER 100 ML 600 MG IV (10:54)
--- NOTE | 2023-06-13 11:00 | P.PN_ITS ---
Subjective Subjective Date: 06/13/23 Time: 09:00 Principal diagnosis: aspiration pneumonitis Interval history: Patient has done well overnight. He remains intubated but settings are low, PEEP 8, FiO2 35% white count elevation to 17,000, Tmax 101.4. He is requiring higher doses of sedation and has mitts on his hands from pulling at tubes. With higher doses of sedation he has some drop in BP requiring norepinephrine in order to maintain MAP of 65. He is on broad-spectrum antibiotics. [place] performed bedside-normal LV function, no left atrial appendage thrombus noted DCCV at 150 J-brief conversion to sinus rhythm with first-degree heart block then back in A-fib DCCV at 200 J-again brief conversion to sinus rhythm then back in A-fib Exam Data for Last 24 hours Vital signs and Labs for Last 24 Hours: Temp Pulse Resp BP Pulse Ox O2 Del Method O2 Flow Rate 100.2 F H 66 22 98/61 L 100 Mechanical Ventilation 10 06/13/23 08:02 06/13/23 10:00 06/13/23 10:00 06/13/23 10:00 06/13/23 10:00 06/13/23 10:00 06/12/23 10:40 FiO2 35 06/13/23 10:00 Laboratory Results - last 24 hr 06/12/23 11:30: Urine Color Yellow, Urine Appearance Clear, Urine pH 7.0, Ur Specific [place] 1.015, Urine Protein Trace, Urine Glucose (UA) Negative, Urine Ketones Negative, Urine Blood Negative, Urine Nitrate Negative, Urine Bilirubin Negative, Urine Urobilinogen 0.2, Ur Leukocyte Esterase Negative, Urine RBC Occasional, Urine WBC Occasional, Ur Squamous Epith Cells Occasional, Urine Bacteria Trace 06/12/23 11:50: Specimen Source R radial, O2 % 100, ABG pH 7.39, ABG pCO2 39.5, ABG pO2 95.1, ABG HCO3 23.3, ABG Total CO2 24.5, ABG O2 Saturation 97, ABG Base Excess -1.7, Saqib Test Acceptable, Vent Rate 22, Tidal Volume 440, PEEP 8 06/12/23 17:29: POC Glucose 94 06/12/23 22:25: POC Glucose 98 06/13/23 06:24: WBC 16.8 H D, RBC 4.74, Hgb 14.4, Hct 44.7, MCV 94.2 H, MCH 30.4, MCHC 32.3, RDW 13.9, Plt Count 214, MPV 8.1, Neut % (Auto) 78.7, Lymph % (Auto) 16.5, [place] % (Auto) 3.5, Eos % (Auto) 0.7, Baso % (Auto) 0.6, Neut # (Auto) 13.2 H, Lymph # (Auto) 2.8, [place] # (Auto) 0.6, Eos # (Auto) 0.1, Baso # (Auto) 0.1, Total Counted 100, Neutrophils % (Manual) 72, Band Neutrophils % 7.0, Lymphocytes % (Manual) 16, Monocytes % (Manual) 5, Platelet Estimate Normal, RBC Morphology Normal, Sodium 139, Potassium 3.0 L D, Chloride 104, Carbon Dioxide 27, Anion Gap 11.0, BUN 20, Creatinine 1.20, Estimated Creat Clear 96, Estimated GFR 62, Est GFR ( Amer) 74, Glucose 132 H, Calcium 8.2 L, Magnesium 2.0, Total Bilirubin 1.3, AST 30, ALT 20, Alkaline Phosphatase 79, Total Protein 6.7, Albumin 3.8, Globulin 2.9, Albumin/Globulin Ratio 1.3 06/13/23 06:30: POC Glucose 124 H I & O for Last 24 hours: Intake & Output 06/10/23 06/11/23 06/12/23 06/13/23 23:59 23:59 23:59 23:59 Intake Total 1351.394 / 1351.394 835.285 / 835.285 Output Total 692 / 752 1562 / 1562 Balance 659.394 / 599.394 -726.715 / -726.715 Weight 230 lb 230 lb 8.951 oz 230 lb 9.656 oz Constitutional Comments: Sedated and intubated *Routine Respiratory Exam Respiratory: Present CTA bilaterally; Absent accessory muscle use, wheezes or crackles Comments: Intubated, slightly reduced breath sounds *Routine Cardiovascular Exam Cardiovascular: Present RRR, Normal S1, Normal S2 and irregular rhythm; Absent murmur, gallop or rubs *Routine Abdominal Exam Abdominal: Present soft *Routine Extremities Exam Extremities: Present pulses intact *Routine Skin Exam Skin: Present intact; Absent erythema or wounds *Routine Neurological Exam Comments: Sedating Routine Psychiatric Exam Comments: Sedated Progress Note: A&P Assessment and plan (1) Acute hypoxic respiratory failure: Status: Acute (2) Aspiration into airway: Status: Acute (3) S/P CABG x 4: Status: Acute (4) Atrial fibrillation: Status: Acute (5) CAD (coronary artery disease): Status: Acute (6) HLD (hyperlipidemia): Status: Acute (7) HTN (hypertension): Status: Acute (8) Class 1 obesity due to excess calories with body mass index (BMI) of 34.0 to 34.9 in adult: Status: Acute Assessment and Plan Assessment and Plan for All Diagnoses:: Acute Hypoxic Respiratory Failure secondary to aspiration pneumonitis - presumably pt was not fully NPO or has some undiagnosed delayed gastric emptying and developed vomiting from Propafol prior to [place]/DCCV attempt *pts fiance agrees he has frequent bloating/fullness following meals at home. She states he took morning meds with water but otherwise had not eaten since the night before. - ample suction noted - 06/12 CXR looks worse with diffuse bilateral opacities - cont empiric antibiotics including anaerobic coverage - vent settings remain low , plans per per Pulmonology Iatrogenic Hypotension - pt on Norepinephrine secondary to sedation for intubation A-fib, CVR - persistant since CABG in February - 06/11: unable to attempt due to aspiration event - 06/12: DCCV at 150 J-brief conversion to sinus rhythm with first-degree heart block then back in A-fib, DCCV at 200 J-again brief conversion to sinus rhythm then back in A-fib. - Plan: Start IV Amiodarone with bolus and try DCCV again tomorrow morning. CAD, [place] s/p CABG x4 02/2023 - cont eliquis, other meds on hold due to hypotension Htn - recently escalated med therapy outpatient due to poor control - resume home meds as tolerated here Obesity - will address outpatient
[2023-06-13] MEDS: AMIODARONE HCL 900 MG in DEXTROSE 5 % IN WATER 500 ML 33.2999999999999972 MG IV (11:23)
[2023-06-13] MEDS: propofoL 100 ML 37.5600000000000023 MG IV (12:21)
[2023-06-13 12:32] LABS: POC Glucose,Bedside 123 (70-110)
--- NOTE | 2023-06-13 12:32 | DIET.NUTRFU ---
reviewed plan in morning rounds, unable to extubate today, provider will start TF if still intubated 06/13. Continues on propofol for sedation so far 363ml or 399.3kcal. Also receiving additional KCL for his low K of 3.0. His urine output so far today was 1617ml. Will continue to monitor status for TF or extubation
[2023-06-13] MEDS: CEFTRIAXONE SODIUM 1 GM in 0.9 % SODIUM CHLORIDE 50 ML IV (13:19)
[2023-06-13] MEDS: AZITHROMYCIN 500 MG in 0.9 % SODIUM CHLORIDE 250 ML 250 MG IV (13:50)
[2023-06-13 16:35] LABS: POC Glucose,Bedside 132 (70-110)
--- NOTE | 2023-06-13 19:03 | CA_ITS ---
FINAL REPORT TECHNIQUE: Grayscale, color Doppler and duplex Doppler ultrasound of the kidneys, aorta and renal arteries was performed. Multiple velocities were measured. CLINICAL HISTORY: hypertension COMPARISON: None FINDINGS: Aorta velocity: 80.2 cm/sec Right kidney: 10.2 cm. No evidence of hydronephrosis or mass. Right intrarenal RI: 0.72 Right renal artery velocity: 154 cm/sec. Right RAR (Renal artery-Aortic Ratio): 1.9 Left Kidney: 11.2 cm. No evidence of hydronephrosis or mass. Left intrarenal RI: 0.71 Left renal artery velocity: cm/sec. Left RAR (Renal Artery-Aortic Ratio): 1.6 IMPRESSION: No evidence of significant renal artery stenosis. CT angiogram or postcontrast MR angiogram would be more sensitive for evaluation of possible renal artery stenosis. Reviewed, Interpreted and Dictated by Orlando Yao III, MD Transcribed by [place] Authenticated and [facility]
[2023-06-13] MEDS: AMIODARONE 200MG TABLET 400 MG NG-TUBE (20:05)
[2023-06-14] VITALS (36 sets, daily range): BP systolic 82–160; BP diastolic 44–98; PULSE 46–85; RESP 9–27; TEMP 36.9–38.2; O2SAT 91–100; BMI 35.8
[2023-06-14] MEDS: propofoL 100 ML 18.7800000000000011 MG IV (00:10)
[2023-06-14] MEDS: IPRATROPIUM/ALBUTEROL 3 ML NEB IH (02:52)
[2023-06-14] MEDS: FENTANYL CITRATE/PF 1,000 MCG in 0.9 % SODIUM CHLORIDE 80 ML 10 MCG IV (03:13)
[2023-06-14 03:30] LABS: POC Glucose,Bedside 107 (70-110)
--- NOTE | 2023-06-14 06:00 | XR_ITS ---
PROCEDURE INFORMATION: Exam: XR Chest Exam date and time: 06/14/2023 6:06 AM Age: 62 years old Clinical indication: Device placement; Ett placement (vent status); Additional info: Verify ett and ng tube TECHNIQUE: Imaging protocol: Radiologic exam of the chest. Views: 1 view. COMPARISON: CR XR CHEST PORTABLE 06/13/2023 6:00 AM FINDINGS: Tubes, catheters and devices: There is an endotracheal tube in place with the distal tip at the thoracic inlet. There is an enteric tube in place with the distal tip below the level of the exam. There are sternal wires. Lungs: There is stable left basilar consolidation. There is also stable patchy infiltrate in the right base. Pleural spaces: There is a probable left pleural effusion. The study is poorly positioned to fully assess for pneumothorax but no mediastinal shift is present. Heart/Mediastinum: Stable mild cardiomegaly. Bones/joints: Unchanged. IMPRESSION: No interval change.
[2023-06-14] MEDS: propofoL 100 ML 15.6500000000000004 MG IV (06:25)
[2023-06-14 06:36] LABS: POC Glucose,Bedside 91 (70-110)
[2023-06-14] MEDS: APIXABAN 5MG TABLET 5 MG PO ×2 (08:21→20:42)
[2023-06-14] MEDS: AMIODARONE 200MG TABLET 400 MG NG-TUBE ×3 (08:21→20:42)
[2023-06-14] MEDS: METOPROLOL TARTRATE 50MG TABLET 50 MG PO ×2 (08:21→20:42)
[2023-06-14 08:54] LABS: Basophils # 0.1 K/mm3 (0-0.2); Basophils % 0.4 % (0.1-2.0); Eosinophils # 0.3 K/mm3 (0.0-0.4); Eosinophils % 2.4 % (0.1-12.0); Hematocrit 42.3 % (42.0-52.0); Hemoglobin 13.6 g/dL (14.1-18.0); Lymphocytes # 2.3 K/mm3 (0.7-4.5); Lymphocytes % 22.4 % (10-50); Mean Corpuscular HGB Conc 32.2 g/dL (31.8-35.4); Mean Corpuscular Hemoglobin 30.2 pg (27.0-31.2); Mean Corpuscular Volume 93.8 fl (80-94); Mean Platelet Volume 7.9 fl (7.4-10.4); Monocytes # 0.5 K/mm3 (0.1-1.0); Monocytes % 5.3 % (1.7-9.3); Neutrophils # 7.1 K/mm3 (1.8-7.8); Neutrophils % 69.4 % (37.0-80.0); Platelet Count 153 K/mm3 (142-424); Red Blood Count 4.51 M/mm3 (4.60-6.20); White Blood Count 10.2 K/mm3 (4.8-10.8)
[2023-06-14 09:00] LABS: Chloride 104 mmol/L (98-107); Sodium 138 mmol/L (136-145)
[2023-06-14 09:02] LABS: Alanine Aminotransferase 17 U/L (12-78); Aspartate Amino Transferase 29 U/L (17-59); Blood Urea Nitrogen 17 mg/dl (9-20); Creatinine Clearance Estimated 107 mL/min (50-200); Estimated Glomerular Filt Rate 68 ml/min (>60); GFR (African American) 82 ML/MIN (>60)
[2023-06-14 09:03] LABS: Albumin Level 3.6 g/dl (3.5-5.0); Albumin/Globulin Ratio 1.3 (1.1-1.8); Alkaline Phosphatase 79 U/L (38-126); Bilirubin,Total 1.4 mg/dl (0.2-1.3); Calcium 8.2 mg/dl (8.4-10.2); Carbon Dioxide 29 mmol/L (22.0-30.0); Globulin 2.7 g/dL (1.3-3.2); Glucose 99 mg/dl (74-100); Magnesium 2.1 mg/dl (1.6-2.3); Total Protein,Serum 6.3 g/dl (6.3-8.2)
--- NOTE | 2023-06-14 09:25 | ECG_ITS ---
APPROVED REPORT Exam: Resting ECG HR:53 bpm ECG Measurements Heart Rate 53 AXES QRSd 102 QRS -17 QT 459 T 79 QTc 441 Conclusion ATRIAL FLUTTER/TACHYCARDIA WITH SLOW VENTRICULAR RESPONSE LOW QRS VOLTAGE IN PRECORDIAL LEADS [QRS DEFLECTION < 1.0 mV IN CHEST LEADS] POSSIBLE ANTERIOR MYOCARDIAL INFARCTION , OF INDETERMINATE AGE [30 ms Q WAVE IN V3/V4, OR R < 0.2 mV IN V4] ABNORMAL ECG UNCONFIRMED REPORT Electronically signed by : Imtiaz Fernandez MD 06/15/2023 08:37:26
--- NOTE | 2023-06-14 09:41 | EXP.CARD.PN ---
Subjective Subjective Date: 06/14/23 Time: 09:41 Principal diagnosis: aspiration pneumonitis Interval history: No events overnight. White blood cell count down from 16,000-10,000 EKG shows a flutter controlled ventricular response Chest x-ray shows no change Sedation is light and he is able to look around and respond to stimuli. Exam Data for Last 24 hours Vital signs and Labs for Last 24 Hours: Temp Pulse Resp BP Pulse Ox O2 Del Method O2 Flow Rate 98.7 F 79 22 115/62 100 Mechanical Ventilation 30 06/14/23 08:00 06/14/23 09:00 06/14/23 09:00 06/14/23 09:00 06/14/23 09:00 06/14/23 09:00 06/14/23 09:00 FiO2 30 06/14/23 08:00 Laboratory Results - last 24 hr 06/13/23 11:53: POC Glucose 123 H 06/13/23 16:25: POC Glucose 132 H 06/14/23 00:46: POC Glucose 107 06/14/23 06:27: POC Glucose 91 06/14/23 08:40: WBC 10.2 D, RBC 4.51 L, Hgb 13.6 L, Hct 42.3, MCV 93.8, MCH 30.2, MCHC 32.2, RDW 14.0, Plt Count 153 D, MPV 7.9, Neut % (Auto) 69.4, Lymph % (Auto) 22.4, [place] % (Auto) 5.3, Eos % (Auto) 2.4, Baso % (Auto) 0.4, Neut # (Auto) 7.1, Lymph # (Auto) 2.3, [place] # (Auto) 0.5, Eos # (Auto) 0.3, Baso # (Auto) 0.1, Sodium 138, Potassium 3.0 L, Chloride 104, Carbon Dioxide 29, Anion Gap 8.0, BUN 17, Creatinine 1.10, Estimated Creat Clear 107, Estimated GFR 68, Est GFR ( Amer) 82, Glucose 99, Calcium 8.2 L, Magnesium 2.1, Total Bilirubin 1.4 H, AST 29, ALT 17, Alkaline Phosphatase 79, Total Protein 6.3, Albumin 3.6, Globulin 2.7, Albumin/Globulin Ratio 1.3 I & O for Last 24 hours: Intake & Output 06/11/23 06/12/23 06/13/23 06/14/23 23:59 23:59 23:59 23:59 Intake Total 1351.394 / 6406.673 9425.956 / 2069.956 891.823 / 891.823 Output Total 692 / 752 2096 / 2096 445 / 445 Balance 659.394 / 599.394 -27.044 / -27.044 446.823 / 446.823 Weight 230 lb 230 lb 8.951 oz 230 lb 9.656 oz 236 lb 8 oz Constitutional Comments: Sedated and intubated *Routine Respiratory Exam Respiratory: Present CTA bilaterally; Absent accessory muscle use, wheezes or crackles Comments: Intubated, slightly reduced breath sounds *Routine Cardiovascular Exam Cardiovascular: Present RRR, Normal S1, Normal S2 and irregular rhythm; Absent murmur, gallop or rubs *Routine Abdominal Exam Abdominal: Present soft *Routine Extremities Exam Extremities: Present pulses intact *Routine Skin Exam Skin: Present intact; Absent erythema or wounds *Routine Neurological Exam Comments: Sedating Routine Psychiatric Exam Comments: Sedated Progress Note: A&P Assessment and plan (1) Acute hypoxic respiratory failure: Status: Acute (2) Aspiration into airway: Status: Acute (3) S/P CABG x 4: Status: Acute (4) Atrial fibrillation: Status: Acute (5) CAD (coronary artery disease): Status: Acute (6) HLD (hyperlipidemia): Status: Acute (7) HTN (hypertension): Status: Acute (8) Class 1 obesity due to excess calories with body mass index (BMI) of 34.0 to 34.9 in adult: Status: Acute Assessment and Plan Assessment and Plan for All Diagnoses:: Acute Hypoxic Respiratory Failure secondary to aspiration pneumonitis - presumably pt was not fully NPO or has some undiagnosed delayed gastric emptying and developed vomiting from Propafol prior to [place]/DCCV attempt *pts fiance agrees he has frequent bloating/fullness following meals at home. She states he took morning meds with water but otherwise had not eaten since the night before. - ample suction noted - 06/12 CXR looks worse with diffuse bilateral opacities - cont empiric antibiotics including anaerobic coverage - vent settings remain low 08/21, plans per per Pulmonology Iatrogenic Hypotension - pt on Norepinephrine secondary to sedation for intubation A-fib, CVR - persistant since CABG in February - 06/11: unable to attempt due to aspiration event - 06/12: DCCV at 150 J-brief conversion to sinus rhythm with first-degree heart block then back in A-fib, DCCV at 200 J-again brief conversion to sinus rhythm then back in A-fib. - 06/13: On Amio IV and oral for 24 hours. He's in a-flutter CVR today. Will attempt DCCV again. CAD, [place] s/p CABG x4 02/2023 - cont eliquis, other meds on hold due to hypotension Htn - recently escalated med therapy outpatient due to poor control - resume home meds as tolerated here Obesity - will address outpatient Delayed Gastric Emptying? - pt had retained foot in stomach despite 12h fasting - family reports he has frequent complaints of bloating, fullness - recommend OP GI w/u CV stable, will attempt DCCV again today then hopefully can extubate then remove sedation and pressors
--- NOTE | 2023-06-14 09:46 | PC.NURSE ---
PLACED ZOLL PADS ON PT FOR POSSIBLE CARDIOVERSION WHEN MD SCHULTZ AT BEDSIDE, INCREASED PROPOFOL TO 40MCG/KG/MIN AT THIS TIME
--- NOTE | 2023-06-14 09:49 | EXP.PULM.PN ---
Subjective *Date: 06/14/23 *Time: 11:02 Interval history: No acute respiratory events overnight. Stable ventilator settings. Pulmonology Exam Inpatient Vital signs and Labs for Last 24 Hours: Temp Pulse Resp BP Pulse Ox O2 Del Method O2 Flow Rate 98.7 F 79 22 115/62 100 Mechanical Ventilation 30 06/14/23 08:00 06/14/23 09:00 06/14/23 09:00 06/14/23 09:00 06/14/23 09:00 06/14/23 09:00 06/14/23 09:00 FiO2 30 06/14/23 08:00 Laboratory Results - last 24 hr 06/13/23 11:53: POC Glucose 123 H 06/13/23 16:25: POC Glucose 132 H 06/14/23 00:46: POC Glucose 107 06/14/23 06:27: POC Glucose 91 06/14/23 08:40: WBC 10.2 D, RBC 4.51 L, Hgb 13.6 L, Hct 42.3, MCV 93.8, MCH 30.2, MCHC 32.2, RDW 14.0, Plt Count 153 D, MPV 7.9, Neut % (Auto) 69.4, Lymph % (Auto) 22.4, [place] % (Auto) 5.3, Eos % (Auto) 2.4, Baso % (Auto) 0.4, Neut # (Auto) 7.1, Lymph # (Auto) 2.3, [place] # (Auto) 0.5, Eos # (Auto) 0.3, Baso # (Auto) 0.1, Sodium 138, Potassium 3.0 L, Chloride 104, Carbon Dioxide 29, Anion Gap 8.0, BUN 17, Creatinine 1.10, Estimated Creat Clear 107, Estimated GFR 68, Est GFR ( Amer) 82, Glucose 99, Calcium 8.2 L, Magnesium 2.1, Total Bilirubin 1.4 H, AST 29, ALT 17, Alkaline Phosphatase 79, Total Protein 6.3, Albumin 3.6, Globulin 2.7, Albumin/Globulin Ratio 1.3 I & O for Labs for Last 24 Hours: Intake & Output 06/11/23 06/12/23 06/13/23 06/14/23 23:59 23:59 23:59 23:59 Intake Total 1351.394 / 9957.122 8012.956 / 2069.956 944.511 / 944.511 Output Total 692 / 752 2096 / 2096 445 / 445 Balance 659.394 / 599.394 -27.044 / -27.044 499.511 / 499.511 Weight 230 lb 230 lb 8.951 oz 230 lb 9.656 oz 236 lb 8 oz Constitutional: Present severe distress Comment:: Intubated and Sedated Head: Present normocephalic and atraumatic Neck: Present normal inspection and trachea midline Respiratory: Present patient mechanically ventilated, respiratory distress and rhonchi; Absent prolonged expiratory phase or wheezes Cardiac: Present S1/S2; Absent Regular Rhythm GI: Present soft; Absent distention or tenderness Skin: Present intact; Absent cyanosis Neuro: Absent alert, awake or oriented x 3 Extremities: Present normal inspection; Absent clubbing or cyanosis Psychiatric: Present unable to assess Assessment and Plan *Assessment and plan (1) Acute hypoxic respiratory failure: Status: Acute Category: Medical Code(s): J96.01 - Acute respiratory failure with hypoxia (2) Pneumonia: Status: Acute Qualifiers: Laterality: right Lung location: lower lobe of lung Pneumonia type: due to unspecified organism Qualified Code(s): J18.9 - Pneumonia, unspecified organism Category: Medical Code(s): J18.9 - Pneumonia, unspecified organism (3) On mechanically assisted ventilation: Status: Acute Category: Medical Code(s): Z99.11 - Dependence on respirator [ventilator] status (4) Pleural effusion, left: Status: Acute Category: Medical Code(s): J90 - Pleural effusion, not elsewhere classified Plan Mr. Flores is a 62-year-old male reported history of A-fib presented for an elective cardioversion experience an episode of nausea and vomiting after receiving propofol and a questionable aspiration event followed by hypoxic respiratory failure needing intubation mechanical ventilatory support For further evaluation and management. CTA from February 2023 no acute airspace disease noted. Chest x-ray postintubation right middle lobe and lower lobe airspace disease noted. Neutrophilic leukocytosis. Currently receiving ceftriaxone azithromycin pending culture results. Minimal ventilatory settings, FiO2 30%, PEEP of 5. Cardiology following. Plan for cardioversion again tomorrow. Patient will remain intubated until then. Interval update: No acute respiratory vents overnight. Stable ventilator settings. Chest x-ray will continue to show right lower lobe infiltrate and small left pleural effusion. Improving leukocytosis. Plan: Continue propofol and fentanyl for sedation. Wean sedation, SBT followed by extubation as tolerated. Continue ceftriaxone erythromycin pending tracheal aspirate culture results and nasal MRSA PCR. Continue to receive antibiotics. Chest x-ray relatively stable from yesterday continue to show right lower lobe infiltrate. DuoNebs every 6 hours on as-needed basis # Thank you for involving pulmonary in this patient care. Will continue to follow.
--- NOTE | 2023-06-14 10:06 | PC.NURSE ---
PT CARDIOVERTED AT BEDSIDE WITH MD TURNER AND MD SCHULTZ PRESENT, MD TURNER PUSHED 5ML PROPOFOL PRIOR TO PROCEDURE, PT'S RHYTHM AFTER CARDIOVERSION FIRST DEGREE AV BLOCK AND RT LLUVIA OBTAINING 12 LEAD EKG
--- NOTE | 2023-06-14 10:06 | PC.NURSE ---
PT CARDIOVERTED AT BEDSIDE WITH MD TURNER AND MD SCHULTZ PRESENT, MD TURNER PUSHED 5ML PROPOFOL PRIOR TO PROCEDURE, PT IN SINUS RHYTHM AFTER CARDIOVERSION AND RT LLUVIA OBTAINING 12 LEAD EKG
--- NOTE | 2023-06-14 10:06 | PC.NURSE ---
PT CARDIOVERTED AT BEDSIDE WITH MD TURNER AND MD SCHULTZ PRESENT, PT IN SUNUS RHYTHM AND RT LLUVIA OBTAINING 12 LEAD EKG
--- NOTE | 2023-06-14 10:09 | PC.NURSE ---
MD SRINIVASAN AT BEDSIDE INSTRUCTED THIS RN TO HALF SEDATION AND WILL ATTEMPT SBT SHORTLY, SEDATION DECREASED
[2023-06-14] MEDS: POTASSIUM CHLORIDE 20MEQ/15ML UDC 40 MEQ PO (11:50)
[2023-06-14] MEDS: AZITHROMYCIN 500 MG in 0.9 % SODIUM CHLORIDE 250 ML 250 MG IV (11:50)
[2023-06-14] MEDS: KCl 10mEq/100ml 100 ML 100 MEQ IV ×2 (11:50→12:45)
--- NOTE | 2023-06-14 11:57 | XR_ITS ---
FINAL REPORT TECHNIQUE: Single view chest CLINICAL HISTORY: PNM FINDINGS: A single view of the chest was obtained. The heart is enlarged. Patient is status post median sternotomy. There is endotracheal tube present that terminates in the mid thoracic trachea. There is an NG tube coursing below the diaphragm. There are bibasilar opacities which may represent atelectasis or pneumonia. Pulmonary vascular congestion is noted. IMPRESSION: Bibasilar opacities which may represent atelectasis or pneumonia. Reviewed, Interpreted and Dictated by Orlando Yao III, MD Transcribed by Ginette Lala Authenticated and . [facility]
[2023-06-14] MEDS: CEFTRIAXONE SODIUM 1 GM in 0.9 % SODIUM CHLORIDE 50 ML IV (12:45)
--- NOTE | 2023-06-14 12:53 | PC.NURSE ---
Addendum entered by Karen Jean RN 06/14/23 12:58: OGT CAME OUT WITH OETT, PT NO LONGER HAS OGT IN PLACE Original Note: PT EXTUBATED BY RT'S EVE WITH THIS RN AT BEDSIDE ALSO, PT ON 2LNC WITH HUMIDIFICATION AND OXYGEN SATURATIONS 99%, PT WITH COPIOUS ORAL SECRETIONS PT SUCTIONING SELF WITH SHAKIRA
--- NOTE | 2023-06-14 12:57 | DIET.NUTRFU ---
Patient extubated, spoke to speech about diet/swallow eval prior to oral diet. She is aware and will follow recommendations.
--- NOTE | 2023-06-14 14:43 | P.PN_ITS ---
Subjective *Date: 06/14/23 *Time: 15:01 Interval history: Patient comfortable this morning on ventilator. Patient cardioverted on rounds with 200 J synchronized cardioversion using ZOLL. Took 4 attempts to convert to sinus rhythm with first-degree block. Will trial SBT and potentially extubate today. Minimal vent settings. Pulmonology and cardiology assisting with care. Chest imaging shows stable inflammation. Family at bedside. Medical Exam Vital signs and Labs for Last 24 Hours: Vital Signs Temp Pulse Pulse Resp BP Pulse Ox O2 Del Method 06/14/23 13:00 79 9 L 134/86 98 Nasal Cannula 06/14/23 12:56 Nasal Cannula 06/14/23 12:00 60 06/14/23 12:00 99.5 F 06/14/23 12:00 71 22 140/81 100 Mechanical Ventilation 06/14/23 11:00 Mechanical Ventilation 06/14/23 11:00 64 22 98/59 L 100 Mechanical Ventilation 06/14/23 10:23 64 06/14/23 10:00 58 L 22 82/44 L 97 Mechanical Ventilation 06/14/23 09:30 46 L 22 107/62 L 99 Mechanical Ventilation 06/14/23 09:00 Mechanical Ventilation 06/14/23 09:00 79 22 115/62 100 Mechanical Ventilation 06/14/23 08:00 100 Mechanical Ventilation 06/14/23 08:00 06/14/23 08:00 60 22 105/59 L 100 Mechanical Ventilation 06/14/23 08:00 98.7 F 06/14/23 08:00 65 06/14/23 07:00 72 18 108/58 L 99 Mechanical Ventilation 06/14/23 06:50 Mechanical Ventilation 06/14/23 06:00 98.8 F 68 22 128/68 100 Mechanical Ventilation 06/14/23 05:00 82 22 126/60 100 Mechanical Ventilation 06/14/23 05:00 Mechanical Ventilation 06/14/23 04:30 123/66 06/14/23 04:00 100.8 F H 64 22 120/64 100 Mechanical Ventilation 06/14/23 04:00 Mechanical Ventilation 06/14/23 03:59 24 100 06/14/23 03:30 113/55 L 06/14/23 03:00 72 22 102/57 L 100 Mechanical Ventilation 06/14/23 03:00 Mechanical Ventilation 06/14/23 02:53 61 06/14/23 02:53 66 06/14/23 02:37 22 100 06/14/23 02:30 100/49 L 06/14/23 02:00 57 L 22 94/46 L 100 Mechanical Ventilation 06/14/23 01:45 98/45 L 06/14/23 01:30 98/45 L 06/14/23 01:15 97/56 L 06/14/23 01:00 75 22 96/52 L 99 Mechanical Ventilation 06/14/23 01:00 Mechanical Ventilation 06/14/23 00:45 100/56 L 06/14/23 00:30 104/61 L 06/14/23 00:15 119/72 06/14/23 00:15 27 H 100 06/14/23 00:00 98.8 F 06/14/23 00:00 99.3 F 76 22 108/58 L 100 Mechanical Ventilation 06/14/23 00:00 Mechanical Ventilation 06/13/23 23:45 108/60 L 06/13/23 23:30 103/53 L 06/13/23 23:15 98/52 L 06/13/23 23:00 Mechanical Ventilation 06/13/23 23:00 63 22 103/47 L 100 Mechanical Ventilation 06/13/23 22:45 94/49 L 06/13/23 22:30 89/49 L 06/13/23 22:15 93/53 L 06/13/23 22:00 64 22 91/49 L 100 Mechanical Ventilation 06/13/23 21:55 23 100 06/13/23 21:45 89/50 L 06/13/23 21:30 85/48 L 06/13/23 21:15 90/43 L 06/13/23 21:00 74 22 88/54 L 100 Mechanical Ventilation 06/13/23 21:00 Mechanical Ventilation 06/13/23 20:30 106/50 L 06/13/23 20:00 102 H 22 103/52 L 100 Mechanical Ventilation 06/13/23 20:00 Mechanical Ventilation 06/13/23 20:00 99.5 F 06/13/23 19:55 25 H 100 06/13/23 19:30 104/57 L 06/13/23 18:58 100.4 F H 80 22 105/60 L 100 Mechanical Ventilation 06/13/23 18:42 Mechanical Ventilation 06/13/23 18:30 64 26 H 110/55 L 100 Mechanical Ventilation 06/13/23 18:00 29 H 100 06/13/23 18:00 76 22 169/86 H 100 Mechanical Ventilation 06/13/23 17:30 78 26 H 172/85 H 95 Mechanical Ventilation 06/13/23 17:00 96 H 22 148/82 H 95 Mechanical Ventilation 06/13/23 17:00 Mechanical Ventilation 06/13/23 16:55 95 06/13/23 16:30 102 H 22 156/84 H 100 Mechanical Ventilation 06/13/23 16:00 80 06/13/23 16:00 72 98 Mechanical Ventilation 06/13/23 16:00 100.3 F H 69 22 145/81 H 100 Mechanical Ventilation 06/13/23 15:30 71 23 160/76 H 98 Mechanical Ventilation 06/13/23 15:00 75 22 136/89 99 Mechanical Ventilation 06/13/23 15:00 Mechanical Ventilation O2 Flow Rate FiO2 06/14/23 13:00 2 06/14/23 12:56 2 06/14/23 12:00 06/14/23 12:00 06/14/23 12:00 30 06/14/23 11:00 06/14/23 11:00 30 06/14/23 10:23 06/14/23 10:00 30 06/14/23 09:30 30 06/14/23 09:00 06/14/23 09:00 30 06/14/23 08:00 30 06/14/23 08:00 30 06/14/23 08:00 30 06/14/23 08:00 06/14/23 08:00 06/14/23 07:00 06/14/23 06:50 06/14/23 06:00 06/14/23 05:00 06/14/23 05:00 06/14/23 04:30 06/14/23 04:00 06/14/23 04:00 06/14/23 03:59 30 06/14/23 03:30 06/14/23 03:00 06/14/23 03:00 06/14/23 02:53 06/14/23 02:53 06/14/23 02:37 30 06/14/23 02:30 06/14/23 02:00 06/14/23 01:45 06/14/23 01:30 06/14/23 01:15 06/14/23 01:00 06/14/23 01:00 06/14/23 00:45 06/14/23 00:30 06/14/23 00:15 06/14/23 00:15 31 06/14/23 00:00 06/14/23 00:00 06/14/23 00:00 06/13/23 23:45 06/13/23 23:30 06/13/23 23:15 06/13/23 23:00 06/13/23 23:00 06/13/23 22:45 06/13/23 22:30 06/13/23 22:15 06/13/23 22:00 06/13/23 21:55 30 06/13/23 21:45 06/13/23 21:30 06/13/23 21:15 06/13/23 21:00 06/13/23 21:00 06/13/23 20:30 06/13/23 20:00 06/13/23 20:00 06/13/23 20:00 06/13/23 19:55 30 06/13/23 19:30 06/13/23 18:58 30 06/13/23 18:42 06/13/23 18:30 30 06/13/23 18:00 31 06/13/23 18:00 30 06/13/23 17:30 30 06/13/23 17:00 30 06/13/23 17:00 06/13/23 16:55 30 06/13/23 16:30 30 06/13/23 16:00 06/13/23 16:00 06/13/23 16:00 30 06/13/23 15:30 30 06/13/23 15:00 30 06/13/23 15:00 Intake and Output 06/13/23 06/14/23 06/14/23 23:59 07:59 15:59 Intake Total 229.019 / 2069.956 891.823 / 1038.691 146.868 / 1038.691 Output Total 265 / 7 400 / 495 95 / 495 Balance -35.981 / -27.044 491.823 / 543.691 51.868 / 543.691 Intake: Intake, Total IV Amount 229.019 / 1819.956 891.823 / 1038.691 146.868 / 1038.691 Amiodarone HCl 900 mg In / 219 198 / 198 Dextrose 5 % in Water 500 ml @ 33.3 mls/hr IV .[id number] KELL Rx# :[id number] Fentanyl Citrate/Pf 1,000 mcg 109 / 109 In 0.9 % Sodium Chloride 80 ml @ 50 MCG/HR 5 mls/hr IV .Q21H KELL Rx#:[id number] Norepinephrine Bitartrate/D5w 8 69 / 69 mg In 250 ml @ 4 MCG/MIN 7.5 mls/hr IV .Q24H KELL Rx#: [id number] propofoL 100 ml @ 50 MCG/KG/MIN 230 / 230 31.298 mls/hr IV .Q3H12M KELL Rx#:[id number] Output: Output, Urine Amount 35 / 35 0 / 0 Output, Urine Amount (Catheter) 2061 400 / 495 95 / 495 [place] 2061 400 / 495 95 / 495 Other: Number of Voids 0 Number of Unmeasured Voids 0 0 Weight 107.275 kg Patient Weight 06/14/23 23:59 Weight 107.275 kg Laboratory Results - last 24 hr 06/13/23 16:25: POC Glucose 132 H 06/14/23 00:46: POC Glucose 107 06/14/23 06:27: POC Glucose 91 06/14/23 08:40: WBC 10.2 D, RBC 4.51 L, Hgb 13.6 L, Hct 42.3, MCV 93.8, MCH 30.2, MCHC 32.2, RDW 14.0, Plt Count 153 D, MPV 7.9, Neut % (Auto) 69.4, Lymph % (Auto) 22.4, [place] % (Auto) 5.3, Eos % (Auto) 2.4, Baso % (Auto) 0.4, Neut # (Auto) 7.1, Lymph # (Auto) 2.3, [place] # (Auto) 0.5, Eos # (Auto) 0.3, Baso # (Auto) 0.1, Sodium 138, Potassium 3.0 L, Chloride 104, Carbon Dioxide 29, Anion Gap 8.0, BUN 17, Creatinine 1.10, Estimated Creat Clear 107, Estimated GFR 68, Est GFR ( Amer) 82, Glucose 99, Calcium 8.2 L, Magnesium 2.1, Total Bilirubin 1.4 H, AST 29, ALT 17, Alkaline Phosphatase 79, Total Protein 6.3, Albumin 3.6, Globulin 2.7, Albumin/Globulin Ratio 1.3 I & O for Labs for Last 24 Hours: Intake & Output 06/11/23 06/12/23 06/13/23 06/14/23 23:59 23:59 23:59 23:59 Intake Total 1351.394 / 4838.832 8215.956 / 2069.956 1038.691 / 1038.691 Output Total 692 / 752 2097 / 2097 495 / 495 Balance 659.394 / 599.394 -27.044 / -27.044 543.691 / 543.691 Weight 104.326 kg 104.58 kg 104.6 kg 107.275 kg Constitutional: Present no acute distress, obese and somnolent Head: Present atraumatic ENT: Present normal exam Comment:: ET and OG in place Neck: Present normal inspection Respiratory: Present patient mechanically ventilated and crackles (Left lung field, improving); Absent wheezes Comment:: Irregularly irregular; regular after cardioversion GI: Present soft and normal bowel sounds; Absent distention or tenderness Extremities: Present normal inspection and full ROM Skin: Present intact; Absent erythema Neuro: Present Grossly Intact and moves all extremities (Spontaneously) Comment:: Alert when sedation weaned. Currently intubated and sedated Assessment and Plan *Assessment and plan (1) Acute hypoxic respiratory failure: Status: Acute Category: Medical Code(s): J96.01 - Acute respiratory failure with hypoxia (2) Aspiration into airway: Status: Acute Category: Medical Code(s): T17.908A - Unspecified foreign body in respiratory tract, part unspecified causing other injury, initial encounter (3) S/P CABG x 4: Status: Acute Category: Surgical Code(s): Z95.1 - Presence of aortocoronary bypass graft (4) Atrial fibrillation: Status: Acute Qualifiers: Atrial fibrillation type: paroxysmal Qualified Code(s): I48.0 - Paroxysmal atrial fibrillation Category: Medical Code(s): I48.91 - Unspecified atrial fibrillation (5) CAD (coronary artery disease): Status: Acute Qualifiers: Associated angina: without angina Coronary Disease-Associated Artery/Lesion type: bypass graft [place] vs. transplanted heart: [place] heart Qualified Code(s): I25.810 - Atherosclerosis of coronary artery bypass graft(s) without angina pectoris Category: Medical Code(s): I25.10 - Atherosclerotic heart disease of [place] coronary artery without angina pectoris (6) HLD (hyperlipidemia): Status: Acute Qualifiers: Hyperlipidemia type: unspecified Qualified Code(s): E78.5 - Hyperlipidemia, unspecified Category: Medical Code(s): E78.5 - Hyperlipidemia, unspecified (7) HTN (hypertension): Status: Acute Qualifiers: Hypertension type: unspecified Qualified Code(s): I10 - Essential (pr imary) hypertension Category: Medical Code(s): I10 - Essential (primary) hypertension (8) Class 1 obesity due to excess calories with body mass index (BMI) of 34.0 to 34.9 in adult: Status: Acute Category: Medical Code(s): E66.09 - Other obesity due to excess calories; Z68.34 - Body mass index [BMI] 34.0-34.9, adult Plan 62-year-old male with acute hypoxemic respiratory failure secondary to aspiration after receiving sedation. Discussed case with cardiology, request admission for further management and to reevaluate for possible VIRGINIE cardioversi on in the morning. Medicine agreed to admit. Admitted to ICU level of care. SBT, if passes will plan to extubate. Holding sedation of fentanyl and propofol. Cardiology and pulmonology assisting with care. Converted on rounds to sinus rhythm with first-degree block. Continues to require inpatient management. Problems addressed as follows: Acute hypoxemic respiratory failure secondary to aspiration Aspiration pneumonia versus pneumonitis -Chest x-ray personally reviewed today which continues to show diffuse left- sided opacification with right lower lobe opacification. Personal opinion is that is improving, formal read from radiology shows stable. - Continue empiric antibiotics with ceftriaxone and azithromycin for aspiration pneumonia/pneumonitis -Minimal vent settings, passed SBT, will initiate extubation later this morning. -Discontinue sedation with fentanyl and propofol. -Wean supplemental oxygen as needed for goal sat greater than 90%. -Pulmonology consulted to assist with care. Discussed case this morning, as patient passed SBT, will extubate. Will need to be monitored overnight. If does well, anticipate discharge in the coming days on oral antibiotics. -Hypotension resolved with cessation of sedation. Discontinue norepinephrine. -CBC, CMP, magnesium ordered for the morning. - White cell count better this morning at 10.2. Hypokalemia - potassium low at 3.0, will replace both IV and oral today. - Kidney function remains normal BUN of 17, creatinine 1.1 A-fib, CVR History of CAD History of CABG x 4 in February 2023 -persistent since CABG in February, cardioverted this morning. -Completed amiodarone load. Continue 400 mg oral 3 times a day - Continue Eliquis 5 mg twice daily oral -Holding aspirin due to bleeding from trauma of intubation -Continue metoprolol 50 mg twice daily -Continue Lipitor 80 mg nightly Obesity complicates all aspects of his care Full code N.p.o. pending speech eval Eliquis 5 mg twice daily
--- NOTE | 2023-06-14 16:10 | PC.NURSE ---
REMOVED RAMSEY CATHETER AND GAVE PT URINAL TO USE IF NEEDS TO VOID, INSTRUCTED PT NEEDS TO VOID WITHIN 6 HOURS OR WILL BLADDER SCAN, ASKED PT IF WANTED TO GET UP TO CHAIR, PT DECLINED AT THIS TIME, FAMILY AT BEDSIDE, CALL LIGHT WITHIN REACH
--- NOTE | 2023-06-14 17:00 | HMH.SLDYSPHA ---
Speech & Language Evaluation Speech/Language Dysphagia Evaluation Start: 06/14/23 16:55 Freq: ONCE Status: Active Protocol: Document 06/14/23 16:55 EMILY (Rec: 06/14/23 16:59 [email or web address] [id number]) Dysphagia Assess/Goals/Plan Assessment Date of Evaluation: 06/14/23 Evaluation Type Initial Certification Assessment/Problems post extubation protocol per MD order Does Patient Qualify for Service No Qualify/Failure Comment Based on results of CSE, mastication and manipulation of the bolus appear to be WFL. No further skilled speech therapy services are warranted at this time. Recommendations PHYSICIAN CERTIFICATION: The specified therapy services are required, authorized, and reviewed every 30 days. Diet Recommendations Normal Liquid Type Recommendations Normal/Thin SL Swallow Guidelines Standard Aspiration Prec. Plan Pt/Guardian verbally ack understanding Yes of dx/prognosis/goals G -code Required No Education Instructions provided Discussed CSE results, diet recommendations, and aspiration precautions with pt /pt's family and nursing both of which exppressed understandig. 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 Mr. Copeland is a 62-year-old male who presented for elective VIRGINIE and cardioversion due to new onset A-fib. Recently established with cardiology in February with NSTEMI. Was transferred for bypass surgery in February. Postop developed A-fib. He has been on amiodarone but not having good control of rate and has not been wanting to take it. Was brought in as an outpatient for VIRGINIE and cardioversion. After receiving sedation, developed nausea and had an aspiration event. Received 200 mg propofol and began to have significant vomiting and desaturation. Patient was emergently intubated in endoscopy. Stomach contents suctioned out of his bronchi. He is remained in A-fib. He was extubated at this date. Language Primary Language Yakut General Information General Current Food Consistancy NPO Dentition Good Dentition Oxygen Status Room Air Patient Orientation Person,Place,Time,Situation Ability to Follow Directions Excellent Communication Ability No Impairment Dysphagia:Food Presentation Evaluation Food Type Pureed,Mechanical Soft,Regular ,Liquid,Pudding Dysphagia Evaluation Summary Pt was seen sitting upright in bed with family present at the bedside. Pt was A&Ox4 and provided oral care prior to administering bolus trials. He was given the following consistencies x3 to assess for consistency and/or fatigue with no overt s/sxs of aspiration: thins (ice chips, spoonfuls of water, open cup/ straw sip, two consecutive sips from open cup/straw), pudding, puree(applesauce), mechanical soft (nutrigrain bar), and regular (jessica cracker.) Mastication and manipulation of the bolus, as well as swallow are WFL. Regular/thin diet recommended. No further skilled speech therapy services are warranted at this time. Stroke Dysphagia Assessment PHYSICIAN CERTIFICATION: I certify the specified therapy services for Wolfgang Oliveira are required, authorized, and reviewed every 30 days.
[2023-06-15] VITALS (7 sets, daily range): BP systolic 152–203; BP diastolic 84–99; PULSE 60–80; RESP 15–25; TEMP 37–37.2; O2SAT 93–96; BMI 34.7
--- NOTE | 2023-06-15 05:43 | PC.NURSE ---
EQ, LAPELER ROUNDED AT THIS TIME AND THIS RN ASKED LAPELER FOR ORDER FOR HS SLEEPING AID, IF PT DOESN'T D/C, D/T PT'S REQUEST AND NOT BEING ABLE TO SLEEP WELL THIS PAST NIGHT.
--- NOTE | 2023-06-15 06:23 | PC.NURSE ---
PT'S BP IS SLIGHTLY ELEVATED IN THE 160'S; PT STATES HE IS NOT IN PAIN AND AT HOME HE HAS HYPERTENSION AT TIMES; INSTRUCTOR EXTENSION WORK NOTIFIED
--- NOTE | 2023-06-15 06:26 | PC.NURSE ---
HTN HOME MEDS TO BE RESTARTED PER TIRE MECHANIC
[2023-06-15 07:27] LABS: Basophils % 0.5 % (0.1-2.0); Eosinophils # 0.2 K/mm3 (0.0-0.4); Eosinophils % 2.2 % (0.1-12.0); Hematocrit 39.9 % (42.0-52.0); Lymphocytes # 1.7 K/mm3 (0.7-4.5); Lymphocytes % 20.3 % (10-50); Mean Corpuscular HGB Conc 32.5 g/dL (31.8-35.4); Mean Corpuscular Hemoglobin 30.6 pg (27.0-31.2); Mean Corpuscular Volume 94.1 fl (80-94); Mean Platelet Volume 8.2 fl (7.4-10.4); Monocytes # 0.4 K/mm3 (0.1-1.0); Monocytes % 5.1 % (1.7-9.3); Neutrophils # 5.9 K/mm3 (1.8-7.8); Neutrophils % 71.9 % (37.0-80.0); Platelet Count 153 K/mm3 (142-424); Red Blood Count 4.24 M/mm3 (4.60-6.20); Red Cell Distribution Width 13.6 % (11.5-17.5); White Blood Count 8.2 K/mm3 (4.8-10.8)
[2023-06-15 07:35] LABS: Alanine Aminotransferase 17 U/L (12-78); Albumin Level 3.9 g/dl (3.5-5.0); Albumin/Globulin Ratio 1.3 (1.1-1.8); Alkaline Phosphatase 79 U/L (38-126); Anion Gap 9.3 mEq/L (5-15); Aspartate Amino Transferase 30 U/L (17-59); Bilirubin,Total 1.6 mg/dl (0.2-1.3); Blood Urea Nitrogen 17 mg/dl (9-20); Calcium 8.9 mg/dl (8.4-10.2); Carbon Dioxide 28 mmol/L (22.0-30.0); Chloride 106 mmol/L (98-107); Creatinine Clearance Estimated 104 mL/min (50-200); Estimated Glomerular Filt Rate 68 ml/min (>60); GFR (African American) 82 ML/MIN (>60); Glucose 103 mg/dl (74-100); Potassium 3.3 mmoL/L (3.5-5.1); Sodium 140 mmol/L (136-145); Total Protein,Serum 6.9 g/dl (6.3-8.2)
--- NOTE | 2023-06-15 07:36 | PC.NURSE ---
Jeanie VILLAVICENCIO, will be providing care under my supervision.
[2023-06-15 07:49] LABS: Magnesium 2.3 mg/dl (1.6-2.3)
[2023-06-15] MEDS: APIXABAN 5MG TABLET 5 MG PO (08:29)
[2023-06-15] MEDS: METOPROLOL TARTRATE 50MG TABLET 50 MG PO (08:30)
[2023-06-15] MEDS: AMIODARONE 200MG TABLET 400 MG NG-TUBE (08:30)
[2023-06-15] MEDS: hydroCHLOROthiazide 25MG TABLET 25 MG PO (09:35)
[2023-06-15] MEDS: IRBESARTAN 300MG TABLET 300 MG PO (09:35)
[2023-06-15] MEDS: ASPIRIN EC 81MG TABLET 81 MG PO (09:35)
--- NOTE | 2023-06-15 10:24 | P.PN_ITS ---
Subjective *Date: 06/15/23 *Time: 10:24 Medical Exam Vital signs and Labs for Last 24 Hours: Vital Signs Temp Pulse Pulse Resp BP Pulse Ox O2 Del Method 06/15/23 10:00 67 20 163/97 H 95 Room Air 06/15/23 09:00 Room Air 06/15/23 08:00 68 20 203/84 H 96 Room Air 06/15/23 08:00 94 L Room Air 06/15/23 08:00 98.7 F 06/15/23 06:57 Room Air 06/15/23 06:00 75 18 168/97 H 96 Room Air 06/15/23 05:00 Room Air 06/15/23 04:00 75 25 H 167/99 H 93 L Room Air 06/15/23 04:00 98.6 F 06/15/23 04:00 80 06/15/23 04:00 Room Air 06/15/23 03:00 Room Air 06/15/23 02:00 71 25 H 166/99 H 93 L Room Air 06/15/23 01:00 Room Air 06/15/23 00:00 70 06/15/23 00:00 98.9 F 06/15/23 00:00 78 15 152/99 H 94 L Room Air 06/14/23 23:00 Room Air 06/14/23 22:00 79 14 143/90 H 91 L Room Air 06/14/23 21:00 Room Air 06/14/23 20:00 80 06/14/23 20:00 81 18 160/98 H 95 Room Air 06/14/23 20:00 Room Air 06/14/23 19:54 99.7 F H 06/14/23 18:26 Room Air 06/14/23 18:00 79 23 160/93 H 95 Room Air 06/14/23 17:00 80 20 157/97 H 100 Room Air 06/14/23 16:55 Room Air 06/14/23 16:50 Room Air 06/14/23 16:45 Room Air 06/14/23 16:00 85 06/14/23 16:00 79 17 160/83 H 100 Room Air 06/14/23 16:00 98.5 F 06/14/23 15:00 Room Air 06/14/23 15:00 77 14 149/84 H 98 Room Air 06/14/23 14:00 78 15 136/82 97 Room Air 06/14/23 13:00 79 9 L 134/86 98 Nasal Cannula 06/14/23 12:56 Nasal Cannula 06/14/23 12:00 Mechanical Ventilation 06/14/23 12:00 60 06/14/23 12:00 99.5 F 06/14/23 12:00 71 22 140/81 100 Mechanical Ventilation 06/14/23 11:00 Mechanical Ventilation 06/14/23 11:00 64 22 98/59 L 100 Mechanical Ventilation O2 Flow Rate 06/15/23 10:00 06/15/23 09:00 06/15/23 08:00 06/15/23 08:00 06/15/23 08:00 06/15/23 06:57 06/15/23 06:00 06/15/23 05:00 06/15/23 04:00 06/15/23 04:00 06/15/23 04:00 06/15/23 04:00 06/15/23 03:00 06/15/23 02:00 06/15/23 01:00 06/15/23 00:00 06/15/23 00:00 06/15/23 00:00 06/14/23 23:00 06/14/23 22:00 06/14/23 21:00 06/14/23 20:00 06/14/23 20:00 06/14/23 20:00 06/14/23 19:54 06/14/23 18:26 06/14/23 18:00 06/14/23 17:00 06/14/23 16:55 06/14/23 16:50 06/14/23 16:45 06/14/23 16:00 06/14/23 16:00 06/14/23 16:00 06/14/23 15:00 06/14/23 15:00 06/14/23 14:00 06/14/23 13:00 2 06/14/23 12:56 2 06/14/23 12:00 06/14/23 12:00 06/14/23 12:00 06/14/23 12:00 30 06/14/23 11:00 06/14/23 11:00 30 Intake and Output 06/14/23 06/15/23 06/15/23 23:59 07:59 15:59 Intake Total 360 / 1398.691 270 / 270 Output Total 225 / 720 0 / 0 Balance 135 / 678.691 270 / 270 Intake: Intake, Oral Amount 360 / 360 270 / 270 Output: Output, Urine Amount 225 / 225 0 / 0 Other: Number of Voids 0 0 Number of Unmeasured Voids 0 Weight 104.099 kg Patient Weight 06/15/23 23:59 Weight 104.099 kg Laboratory Results - last 24 hr 06/15/23 06:42: WBC 8.2, RBC 4.24 L, Hgb 13.0 L, Hct 39.9 L, MCV 94.1 H, MCH 30.6, MCHC 32.5, RDW 13.6, Plt Count 153, MPV 8.2, Neut % (Auto) 71.9, Lymph % (Auto) 20.3, [place] % (Auto) 5.1, Eos % (Auto) 2.2, Baso % (Auto) 0.5, Neut # (Auto) 5.9, Lymph # (Auto) 1.7, [place] # (Auto) 0.4, Eos # (Auto) 0.2, Baso # (A uto) 0.0, Sodium 140, Potassium 3.3 L, Chloride 106, Carbon Dioxide 28, Anion Gap 9.3, BUN 17, Creatinine 1.10, Estimated Creat Clear 104, Estimated GFR 68, Est GFR ( Amer) 82, Glucose 103 H, Calcium 8.9, Magnesium 2.3, Total Bilirubin 1.6 H, AST 30, ALT 17, Alkaline Phosphatase 79, Total Protein 6.9, Albumin 3.9, Globulin 3.0, Albumin/Globulin Ratio 1.3 I & O for Labs for Last 24 Hours: Intake & Output 06/12/23 06/13/23 06/14/23 06/15/23 23:59 23:59 23:59 23:59 Intake Total 1351.394 / 4944.476 1976.956 / 2069.956 1398.691 / 1398.691 270 / 270 Output Total 692 / 752 2096 / 209 720 / 720 0 / 0 Balance 659.394 / 599.394 -27.044 / -27.044 678.691 / 678.691 270 / 270 Weight 104.58 kg 104.6 kg 107.275 kg 104.099 kg Microbiology Reports for the Last 24 Hours: Microbiology 06/12/23 11:50 Sputum - Endotracheal Tube Aspirate Gram Stain - Final 06/12/23 11:50 Sputum - Endotracheal Tube Aspirate Sputum Culture - Preliminary 06/13/23 08:41 Nose MRSA Culture - Final The patient's infection will respond to the chosen ABx?: Yes Is the patient receiving the right drug, dose, and route?: Yes Could a more targeted ABx be ordered?: No (afebrile, wbc wnl, sputum pending.)
[2023-06-15] MEDS: POTASSIUM CHLORIDE 20MEQ TAB 20 MEQ PO (10:36)
[2023-06-15] MEDS: AZITHROMYCIN 250MG TABLET 500 MG PO (11:08)
--- NOTE | 2023-06-15 11:47 | EXP.DC.SUM ---
General Admission date:: 06/12/23 Discharge date: 06/15/23 HPI HPI HPI: Mr. Copeland is a 62-year-old male who presented for elective [place] and cardioversion due to new onset A-fib. Recently established with cardiology in February with NSTEMI. Was transferred for bypass surgery in February. Postop developed A-fib. He has been on amiodarone but not having good control of rate and has not been wanting to take it. Was brought in as an outpatient for [place] and cardioversion. After receiving sedation, developed nausea and had an aspiration event. Received 200 mg propofol and began to have significant vomiting and desaturation. Patient was emergently intubated in endoscopy. Stomach contents suctioned out of his bronchi. He is remained in A-fib. Medicine was contacted for admission to the ICU given mechanical ventilation and acute respiratory failure after aspiration. On evaluation, patient is sedated and on mechanical vent. Requiring 100% FiO2. Chest imaging reviewed showing left-sided diffuse opacification. Afebrile on initial evaluation. Family at bedside Hospital Course Hospital Course Hospital Course: 62-year-old male with acute hypoxemic respiratory failure secondary to aspiration after receiving sedation. Discussed case with cardiology, request admission for further management and to reevaluate for possible [place] cardioversion in the morning. Medicine agreed to admit. Admitted to ICU level of care. SBT, if passes will plan to extubate. Holding sedation of fentanyl and propofol. Cardiology and pulmonology assisting with care. hypoxia resolved, extubated, eating well and on room air, patient requesting to be discharged which seems to be reasonable Acute hypoxemic respiratory failure secondary to aspiration - resolved Aspiration pneumonia versus pneumonitis - improved, ok to dc on Oral Augmentin, currently on room air Hypokalemia repalced with oral K A-fib, CVR - improved, f/u with cardiology as OP History of CAD History of CABG x 4 in February 2023 Exam Data for Last 24 hours Vital signs and Labs for Last 24 Hours: Temp Pulse Resp BP Pulse Ox O2 Del Method O2 Flow Rate 98.7 F 67 20 163/97 H 95 Room Air 2 06/15/23 08:00 06/15/23 10:00 06/15/23 10:00 06/15/23 10:00 06/15/23 10:00 06/15/23 11:00 06/14/23 13:00 FiO2 30 06/14/23 08:00 Laboratory Results - last 24 hr 06/15/23 06:42: WBC 8.2, RBC 4.24 L, Hgb 13.0 L, Hct 39.9 L, MCV 94.1 H, MCH 30.6, MCHC 32.5, RDW 13.6, Plt Count 153, MPV 8.2, Neut % (Auto) 71.9, Lymph % (Auto) 20.3, [place] % (Auto) 5.1, Eos % (Auto) 2.2, Baso % (Auto) 0.5, Neut # (Auto) 5.9, Lymph # (Auto) 1.7, [place] # (Auto) 0.4, Eos # (Auto) 0.2, Baso # (Auto) 0.0, Sodium 140, Potassium 3.3 L, Chloride 106, Carbon Dioxide 28, Anion Gap 9.3, BUN 17, Creatinine 1.10, Estimated Creat Clear 104, Estimated GFR 68, Est GFR ( Amer) 82, Glucose 103 H, Calcium 8.9, Magnesium 2.3, Total Bilirubin 1.6 H, AST 30, ALT 17, Alkaline Phosphatase 79, Total Protein 6.9, Albumin 3.9, Globulin 3.0, Albumin/Globulin Ratio 1.3 I & O for Last 24 hours: Intake & Output 06/12/23 06/13/23 06/14/23 06/15/23 23:59 23:59 23:59 23:59 Intake Total 1351.394 / 7373.674 2603.956 / 2069.956 1398.691 / 1398.691 270 / 270 Output Total 692 / 752 2097 / 2097 720 / 720 0 / 0 Balance 659.394 / 599.394 -27.044 / -27.044 678.691 / 678.691 270 / 270 Weight 104.58 kg 104.6 kg 107.275 kg 104.099 kg Microbiology Reports for the Last 24 Hours: Microbiology 06/12/23 11:50 Sputum - Endotracheal Tube Aspirate Gram Stain - Final 06/12/23 11:50 Sputum - Endotracheal Tube Aspirate Sputum Culture - Preliminary 06/13/23 08:41 Nose MRSA Culture - Final Constitutional Constitutional: no acute distress *Routine HEENT Exam Head: Present normocephalic Eye: Present EOMI and PERRL ENT: Present mucous membranes moist *Routine Neck Exam Neck: Present supple; Absent lymphadenopathy *Routine Respiratory Exam Respiratory: Present CTA bilaterally *Routine Cardiovascular Exam Cardiovascular: Present RRR *Routine Abdominal Exam Abdominal: Present soft and normoactive bowel sounds; Absent tenderness *Routine Extremities Exam Extremities: Absent cyanosis, clubbing or edema *Routine Skin Exam Skin: Present warm; Absent rash *Routine Neurological Exam Neurological: Present alert and oriented X3 Results Data Completed and Pending Labs on day of discharge: Labs from last 24 hours 06/15/23 06:42 WBC 8.2 RBC 4.24 L Hgb 13.0 L Hct 39.9 L MCV 94.1 H MCH 30.6 MCHC 32.5 RDW 13.6 Plt Count 153 MPV 8.2 Neut % (Auto) 71.9 Lymph % (Auto) 20.3 [place] % (Auto) 5.1 Eos % (Auto) 2.2 Baso % (Auto) 0.5 Neut # (Auto) 5.9 Lymph # (Auto) 1.7 [place] # (Auto) 0.4 Eos # (Auto) 0.2 Baso # (Auto) 0.0 Sodium 140 Potassium 3.3 L Chloride 106 Carbon Dioxide 28 Anion Gap 9.3 BUN 17 Creatinine 1.10 Estimated Creat Clear 104 Estimated GFR 68 Est GFR ( Amer) 82 Glucose 103 H Calcium 8.9 Magnesium 2.3 Total Bilirubin 1.6 H AST 30 ALT 17 Alkaline Phosphatase 79 Total Protein 6.9 Albumin 3.9 Globulin 3.0 Albumin/Globulin Ratio 1.3 Preliminary micro results at discharge 06/12/23 11:50 Sputum Culture - Preliminary Sputum - Endotracheal Tube Aspirate DS: Diagnosis Discharge Diagnosis (1) Acute hypoxic respiratory failure: Status: Acute Code(s): J96.01 - Acute respiratory failure with hypoxia (2) Aspiration into airway: Status: Acute Code(s): T17.908A - Unspecified foreign body in respiratory tract, part unspecified causing other injury, initial encounter (3) S/P CABG x 4: Status: Acute Code(s): Z95.1 - Presence of aortocoronary bypass graft (4) Atrial fibrillation: Status: Acute Code(s): I48.91 - Unspecified atrial fibrillation Qualifiers: Atrial fibrillation type: paroxysmal Qualified Code(s): I48.0 - Paroxysmal atrial fibrillation (5) CAD (coronary artery disease): Status: Acute Code(s): I25.10 - Atherosclerotic heart disease of [place] coronary artery without angina pectoris Qualifiers: Coronary Disease-Associated Artery/Lesion type: bypass graft [place] vs. transplanted heart: [place] heart Associated angina: without angina Qualified Code(s): I25.810 - Atherosclerosis of coronary artery bypass graft(s) without angina pectoris (6) HLD (hyperlipidemia): Status: Acute Code(s): E78.5 - Hyperlipidemia, unspecified Qualifiers: Hyperlipidemia type: unspecified Qualified Code(s): E78.5 - Hyperlipidemia, unspecified (7) HTN (hypertension): Status: Acute Code(s): I10 - Essential (primary) hypertension Qualifiers: Hypertension type: unspecified Qualified Code(s): I10 - Essential (primary) hypertension (8) Class 1 obesity due to excess calories with body mass index (BMI) of 34.0 to 34.9 in adult: Status: Acute Code(s): E66.09 - Other obesity due to excess calories; Z68.34 - Body mass index [BMI] 34.0-34.9, adult Meds Home Medications and Allergies Home Medications Medication Instructions Recorded Confirmed Type aspirin 81 mg tablet,delayed 81 mg PO DAILY #0 tabs 03/21/23 06/12/23 Rx release amiodarone 400 mg tablet 400 mg PO BID #60 tabs 05/29/23 06/12/23 Rx apixaban 5 mg tablet (Eliquis) 5 mg PO BID #60 tabs 05/29/23 06/12/23 Rx metoprolol tartrate 50 mg tablet 50 mg PO BID 05/29/23 06/12/23 History hydrochlorothiazide 25 mg tablet 25 mg PO DAILY #30 tabs 06/07/23 06/12/23 Rx valsartan 320 mg tablet 320 mg PO DAILY #30 tabs 06/11/23 06/12/23 Rx atorvastatin 80 mg tablet 80 mg PO HS 06/12/23 06/12/23 History amoxicillin 875 mg-potassium 1 tab PO Q12H 7 days #14 tabs 06/15/23 Rx clavulanate 125 mg tablet New Prescriptions to Start Prescriptions: amoxicillin-pot clavulanate Cuate Shukla Allergies Allergy/AdvReac Type Severity Reaction Status Date / Time No Known Allergies Allergy Verified 06/12/23 09:42 Discharge Plan Disposition Patient Disposition: Home, Self-Care Condition: Good Discharge Order Discharge Orders: Discharge Order (Routine); Ordered 06/15/23 Ordered By: Cuate Shukla Follow up Plan Follow up with: Maksim Collier [Primary Care Provider] - 2 weeks Prescriptions/Medication Reconciliation: New amoxicillin-pot clavulanate 875-125 mg tablet 1 tab PO Q12H 7 Days Qty: 14 0RF Continued metoprolol tartrate 50 mg tablet 50 mg PO BID Patient Comments: TAKE 1 TABLET BY MOUTH TWICE DAILY Eliquis 5 mg tablet 5 mg PO BID Qty: 60 5RF amiodarone 400 mg tablet 400 mg PO BID Qty: 60 2RF valsartan 320 mg tablet 320 mg PO DAILY Qty: 30 5RF hydrochlorothiazide 25 mg tablet 25 mg PO DAILY Qty: 30 2RF aspirin 81 mg Tablet,Delayed Release (Dr/Ec) 81 mg PO DAILY Qty: 0 0RF atorvastatin 80 mg tablet 80 mg PO HS Patient Comments: TAKE 1 TABLET BY MOUTH ONCE DAILY AT NIGHT Problem Reconciliation Problems Reviewed?: Yes Patient Discharge Instructions ACTIVITY: Ambulate as tolerated DIET: continue same diet Patient Instructions: Transesophageal Echocardiography, Aspiration Pneumonia, DI for Aspiration Pneumonia, Ventilator-Associated Pneumonia, DI for Respiratory Failure, Respiratory Failure, Catheter-Associated Urinary Tract Infection Providers Primary Care Provider: Maksim Collier Admit Provider: Kirk Carranza Attending Provider: Kirk Carranza
[2023-06-15] MEDS: CEFTRIAXONE SODIUM 1 GM in 0.9 % SODIUM CHLORIDE 50 ML IV (11:58)
--- NOTE | 2023-06-17 15:57 | CARE MANAGER ---
Contacted patient related to hospital discharge. He states he is doing well. He picked up and is taking his antibiotic. He hasn't made his PCP appointment but will. Denies questions or concerns. ZAHRA Horton
== END 2023-06-15 12:55 | disposition home or self-care (01) | DRG 208 ==
LOC: 2ND 11:38
PROVIDERS: Internal Medicine; Admitting Provider Internal Medicine Adolescent Medicine; PCP Family Medicine; Visit Provider Internal Medicine Adolescent Medicine
DX: J96.01 Acute respiratory failure with hypoxia (principal); J69.0 Pneumonitis due to inhalation of food and vomit; T17.908A Unspecified foreign body in respiratory tract, part unspecified causing other injury, initial encounter; Z95.1 Presence of aortocoronary bypass graft; I48.0 Paroxysmal atrial fibrillation; I25.10 Atherosclerotic heart disease of native coronary artery without angina pectoris; E66.09 Other obesity due to excess calories; Z68.34 Body mass index [BMI] 34.0-34.9, adult; I95.89 Other hypotension; E87.6 Hypokalemia; J98.4 Other disorders of lung; I25.2 Old myocardial infarction
CPT/HCPCS: 31500; 94002; 36415; 71045; 74018; 80048; 80053; 81001; 82803; 82962; 83735; 85007; 85025; 85610; 87070; 87081; 87205; 92610; 92960; 93005; 93270; 93306; 93312; 93319; 93976; 94003; 94640; 94761; J0282; J0456; J0696; J2704; J7060

== ENCOUNTER 2023-07-10 08:11 | Outpatient (CLI) | payer BC, SELFPAY ==
--- NOTE | 2023-07-10 08:11 | FL_ITS ---
FINAL REPORT CLINICAL HISTORY: esophageal dysphagia, GERD, gastric motility 2.52 min DAP 5188.57 FINDINGS: UPPER GI WITH SBFT HISTORY: Esophageal dysphagia with gastroesophageal reflux disease and gastric dysmotility. PROCEDURE: The patient ingested barium. Effervescent crystals were also administered. Spot and overhead films were obtained. Additional barium was administered for a SBFT. Images: 24 Fluoro time: 2 minutes 52 seconds DAP: 5188.57 FINDINGS: UGI: No esophageal stricture is identified. There is a small sliding-type hiatal hernia with a prominent ring. A 13 mm barium tablet passes through the esophagus and into the stomach without delay. Gastroesophageal reflux was demonstrated to the mid esophagus.Peristalsis is normal. The rugal fold pattern of the stomach is normal. The duodenal bulb is normal. SBFT: The cooker pie filling film is normal. There is no evidence of obstruction. The mucosal fold pattern is normal. The terminal ilium is normal. IMPRESSION: Small sliding-type hiatal hernia with gastroesophageal reflux. Films reviewed , interpreted and dictated by Dr. Cunningham. Transcribed by Ever Alexander PA-C. Reviewed, Interpreted and Dictated by Royal Cunningham MD Transcribed by LINDA Alexander Authenticated and [facility]
[2023-07-10] MEDS: BARIUM SULFATE (E-Z-HD 340GM);135ML BOTTLE 135 ML PO (09:01)
[2023-07-10] MEDS: BARIUM SULFATE(LIQUID E-Z-PAQUE);355ML BOTTLE 355 ML PO (09:01)
[2023-07-10] MEDS: E-Z-GASII EFFERVESCENT GRANULES;1PK 1 EACH PO (09:01)
[2023-07-10] MEDS: DIATRIZOATE MEG 66% & DIATRIZOATE NA 10% 30ML UDC 15 ML PO (09:01)
== END 2023-07-10 23:59 | disposition home or self-care (01) ==
LOC: RAD 08:11
PROVIDERS: PCP Family Medicine; Visit Provider Nurse Practitioner
DX: K21.9 Gastro-esophageal reflux disease without esophagitis (principal); R13.19 Other dysphagia; K31.84 Gastroparesis
CPT/HCPCS: 74246; 74248

== ENCOUNTER 2023-07-30 09:19 | Outpatient (CLI) | payer BC, SELFPAY ==
--- NOTE | 2023-07-30 09:19 | NM_ITS ---
FINAL REPORT TECHNIQUE: Sequential anterior images were obtained after the ingestion of 2 whole eggs, toast with butter, and 6 ounces of water radiolabeled with 0.55 mCi technetium 99M sulfur colloid. CLINICAL HISTORY: Slow Gastric Motility 9:50 am 0.55 mci tc sulfur colloid injected into 2 whole eggs,toast with butter and 6 oz cup of water COMPARISON: None FINDINGS: GASTRIC EMPTYING SCAN Static images show normal emptying of the stomach into the small bowel. Based on the time activity curve, the estimated half-emptying time is 97 minutes which is within normal limits. IMPRESSION: Normal gastric emptying study. Reviewed, Interpreted and Dictated by Orlando aYo III, MD Transcribed by Angela Herring Authenticated and [facility]
[2023-07-30] MEDS: TC99M SULF.COLLOID;1 DOSE (UP TO 20 MCI) IV (10:06)
== END 2023-07-30 23:59 | disposition home or self-care (01) ==
LOC: RAD 09:19
PROVIDERS: PCP Family Medicine; Visit Provider Nurse Practitioner
DX: K21.9 Gastro-esophageal reflux disease without esophagitis (principal); R13.19 Other dysphagia; K31.84 Gastroparesis
CPT/HCPCS: 78264; A9541

== ENCOUNTER 2023-08-06 14:01 | Observation (INO) | payer BC, SELFPAY ==
[2023-08-06] VITALS (8 sets, daily range): BP systolic 120–169; BP diastolic 73–102; PULSE 55–65; RESP 11–24; TEMP 36.6–36.8; O2SAT 96–99; BMI 40.1; BMI 35.0
--- NOTE | 2023-08-06 13:59 | ECG_ITS ---
APPROVED REPORT Exam: Resting ECG HR:62 bpm ECG Measurements Heart Rate 62 AXES QRSd 113 QRS 73 QT 460 T 33 QTc 465 Conclusion Sinus rhythm with a first-degree AV block with a TX interval of 320 ms LOW QRS VOLTAGE IN PRECORDIAL LEADS [QRS DEFLECTION < 1.0 mV IN CHEST LEADS] INCOMPLETE RIGHT BUNDLE BRANCH BLOCK [90+ ms QRS DURATION, TERMINAL R IN V1/V2, 40+ ms S IN I/aVL/V4/V5/V6] POSSIBLE ANTERIOR MYOCARDIAL INFARCTION , PROBABLY OLD [30 ms Q WAVE IN V3/V4, OR R < 0.2 mV IN V4] Electronically signed by : SUMMER CONTEH, 08/06/2023 16:27:11
--- NOTE | 2023-08-06 14:06 | ED_ITS ---
Discharge Plan Disposition Patient Disposition: Admitted Condition: Good Clinical Impressions Clinical Impression: Chest pain, Hypertension, Elevated troponin Discharge ED Provider: Nanette Franklin HPI <LINDA Arce - Last Filed: 08/06/23 14:06> General Chief Complaint: Chest Pain Stated Complaint: chest pain Time Seen by Provider: 08/06/23 14:02 Related Data Home Medications Medication Instructions Recorded Confirmed metoprolol tartrate 50 mg tablet 50 mg PO BID 05/29/23 08/06/23 methocarbamol 750 mg tablet 750 mg PO TIDP PRN Muscle Spasm 06/27/23 08/06/23 amiodarone 400 mg tablet 200 mg PO DAILY 07/25/23 08/06/23 Previous Rx's Medication Instructions Recorded aspirin 81 mg tablet,delayed 81 mg PO DAILY #0 tabs 03/21/23 release apixaban 5 mg tablet (Eliquis) 5 mg PO BID #60 tabs 05/29/23 hydrochlorothiazide 25 mg tablet 25 mg PO DAILY #30 tabs 06/07/23 valsartan 320 mg tablet 320 mg PO DAILY #30 tabs 06/11/23 pantoprazole 40 mg tablet,delayed 40 mg PO DAILY #30 tabs 06/27/23 release (Protonix) amlodipine 10 mg tablet 10 mg PO DAILY #90 tabs 07/25/23 atorvastatin 80 mg tablet 80 mg PO HS #30 tabs 07/31/23 Allergies Allergy/AdvReac Type Severity Reaction Status Date / Time No Known Allergies Allergy Verified 07/02/23 09:35 <Nanette Franklin DO - Last Filed: 08/06/23 16:16> History of Present Illness HPI narrative: This patient is a 62-year-old male with history of CAD status post CABG, hypertension, hyperlipidemia, NSTEMI, atrial fibrillation, obesity, GERD presented to the emergency department for evaluation with concern for chest pain, headache, and bilateral lower extremity swelling. Patient notes that he started having episodes of this which he thought was initially related to salt intake versus drinking beer with his brother yesterday, however he had pretty significant pain today while loading up his trunk and his chest and decided to come to the ED for evaluation given his cardiac history. He notes compliance with his home medications for hypertension and he also notes that he was recently started on a new medication for hypertension. On medical record review, it looks like he was recently started on amlodipine 10 mg once daily on 07/25/2023 in cardiology clinic. No other concerns noted at this time. He states he started to feel little bit better but is still having some pressure. [facility] <LINDA Arce - Last Filed: 08/06/23 14:06> [facility] Disclaimer: The information contained in this section may have been updated after the patient was seen, as this information can be updated by other users. Medical History Sinus bradycardia Difficulty swallowing Slow gastric motility Pleural effusion, left On mechanically assisted ventilation Pneumonia Peyronie's disease Dupuytren's contracture of both hands Surgical History S/P CABG x 4 Family History Other COPD (chronic obstructive pulmonary disease) Cancer Coronary artery disease Diabetes Hyperlipidemia Hypertension Pancreatic cancer Stroke Social History Smoking Status: Never smoker alcohol intake: never substance use type: denies use current occupational status: employed Travel in the last 8 weeks: Inside the [place] caffeine: Yes <LINDA Arce - Last Filed: 08/06/23 14:06> ROS Obtained: Yes Systems reviewed as appropriate & no additional complaints except as documented Physical Exam <LINDA Arce - Last Filed: 08/06/23 14:06> General General appearance: alert and in no apparent distress Head Head exam: atraumatic and normal inspection Eye Eye exam: Present normal appearance, PERRL and EOMI ENT ENT exam: Present normal exam, normal oropharynx and mucous membranes moist Neck Neck exam: Present normal inspection, full ROM and trachea midline; Absent lymphadenopathy Chest Chest inspection: Present normal inspection and symmetric chest wall rise Respiratory Respiratory exam: Present normal lung sounds bilaterally; Absent accessory muscle use Cardiovascular Cardiovascular exam: Present regular rate, normal rhythm, normal heart sounds, +S1 and +S2 Abdominal Exam Abdominal exam: Present soft and normal bowel sounds; Absent tenderness, guarding or rebound Extremities Exam Extremities exam: Present normal inspection and full ROM Neurological Exam Neurological exam: Present alert, oriented X3 and CN II-XII intact Psychiatric Psychiatric exam: Present normal affect and normal mood Skin Skin exam: Present warm, dry and normal color Lymphatic Lymphatic Findings: no adenopathy <Nanette Franklin DO - Last Filed: 08/06/23 16:16> General General appearance: obese Extremities Exam Extremities exam: Present edema (1+ bilateral lower extremity edema that is symmetric) Back Exam Back exam: Present normal inspection and full ROM; Absent tenderness HEART Score <Nanette Franklin DO - Last Filed: 08/06/23 16:16> HEART Score HEART Score assessment performed?: Yes History (anamnesis): Slightly suspicious ECG: Normal Age: 45-65 years Risk factors: Atherosclerosis history Troponin: > 3x normal limit HEART Score: 5 Critical Care <Nanette Franklin DO - Last Filed: 08/06/23 16:16> Critical Care Time Critical Care Time: No Medical Decision Making <LINDA Arce - Last Filed: 08/06/23 14:06> Vital Signs Vital Signs: 08/06/23 14:01 08/06/23 14:42 08/06/23 15:00 Temperature 98.2 F Temperature Source Oral Pulse Rate 59 L 59 L Pulse Rate [Apical] 63 Respiratory Rate 18 14 11 L Blood Pressure 147/89 H 120/73 Blood Pressure [Left Arm] 169/102 H Blood Pressure Mean [Left Arm] 124 Blood Pressure Source [Left Arm] Automatic Cuff Blood Pressure Position [Left Arm] Sitting 02 Sat by Pulse Oximetry 98 96 97 Oxygen Delivery Method Room Air 08/06/23 15:30 08/06/23 15:55 Temperature 98.3 F Temperature Source Oral Pulse Rate 56 L 58 L Pulse Rate [Apical] Respiratory Rate 23 20 Blood Pressure 130/82 130/82 Blood Pressure [Left Arm] Blood Pressure Mean [Left Arm] Blood Pressure Source [Left Arm] Blood Pressure Position [Left Arm] 02 Sat by Pulse Oximetry 96 Oxygen Delivery Method Room Air Lab Data Labs: Lab Results 08/06/23 14:03: WBC 8.7, RBC 4.84, Hgb 14.6, Hct 44.2, MCV 91.4, MCH 30.2, MCHC 33.0, RDW 15.0, Plt Count 196, MPV 7.9, Neut % (Auto) 63.3, Lymph % (Auto) 28.5, [place] % (Auto) 5.7, Eos % (Auto) 1.8, Baso % (Auto) 0.7, Neut # (Auto) 5.5, Lymph # (Auto) 2.5, [place] # (Auto) 0.5, Eos # (Auto) 0.2, Baso # (Auto) 0.1, PT 11.0, INR 1.02, APTT 30.5, Sodium 138, Potassium 3.9, Chloride 103, Carbon Dioxide 26, Anion Gap 12.9, BUN 20, Creatinine 1.10, Estimated Creat Clear 106, Estimated GFR 68, Est GFR ( Amer) 82, Glucose 95, Calcium 9.3, Magnesium 2.2, Total Bilirubin 1.2, AST 52, ALT 41, Alkaline Phosphatase 132 H, Troponin I 0.11 H, N T-Pro-B Natriuret Pep 1600 H, Total Protein 7.9, Albumin 4.5, Globulin 3.4 H, Albumin/Globulin Ratio 1.3, TSH 1.46, Thyroxine (T4) 9.5 08/06/23 14:03 08/06/23 14:03 Response Orders (Tests/Meds): ED MEDICATIONS Generic Name Dose Route Start Last Admin Trade Name Freq PRN Reason Stop Dose Admin Acetaminophen 650 mg 08/06/23 15:59 Acetaminophen 325mg Tab PO 09/05/23 15:58 Q4HP PRN Fever or Mild Pain (1-3) Ondansetron HCl 4 mg 08/06/23 15:59 Ondansetron 4mg/2ml Vial IV 09/05/23 15:58 Q8HP PRN Nausea Discontinued Medications Generic Name Dose Route Start Last Admin Trade Name Freq PRN Reason Stop Dose Admin Aspirin 324 mg 08/06/23 15:07 08/06/23 15:23 Aspirin 81mg Chewable Tablet PO 08/06/23 15:08 324 mg ONCE ONE Administration ORDERS Category Date Time Status XR chest portable Stat Exams 08/06/23 14:09 Completed Activated Partial Thrombo Time Stat Lab 08/06/23 14:03 Completed Complete Blood Count Auto Diff Stat Lab 08/06/23 14:03 Completed Comprehensive Metabolic Panel Stat Lab 08/06/23 14:03 Completed Magnesium Stat Lab 08/06/23 14:03 Completed NT Pro Brain Natriuretic Pep. Stat Lab 08/06/23 14:03 Completed Prothrombin Time INR Stat Lab 08/06/23 14:03 Completed T4 (Thyroxine) Stat Lab 08/06/23 14:03 Completed Thyroid Stimulating Hormone Stat Lab 08/06/23 14:03 Completed Troponin I Q3H Lab 08/06/23 17:15 Ordered Troponin I Q3H Lab 08/06/23 20:15 Ordered Troponin I Stat Lab 08/06/23 14:03 Completed <Nanette Franklin, DO - Last Filed: 08/06/23 16:16> Medical Records Medical records reviewed: Yes I reviewed the patient's medical records. Andrew Inquiry Pt receiving controlled substance: No Vital Signs Vital Signs: 08/06/23 14:01 08/06/23 14:42 08/06/23 15:00 Temperature 98.2 F Temperature Source Oral Pulse Rate 59 L 59 L Pulse Rate [Apical] 63 Respiratory Rate 18 14 11 L Blood Pressure 147/89 H 120/73 Blood Pressure [Left Arm] 169/102 H Blood Pressure Mean [Left Arm] 124 Blood Pressure Source [Left Arm] Automatic Cuff Blood Pressure Position [Left Arm] Sitting 02 Sat by Pulse Oximetry 98 96 97 Oxygen Delivery Method Room Air 08/06/23 15:30 08/06/23 15:55 Temperature 98.3 F Temperature Source Oral Pulse Rate 56 L 58 L Pulse Rate [Apical] Respiratory Rate 23 20 Blood Pressure 130/82 130/82 Blood Pressure [Left Arm] Blood Pressure Mean [Left Arm] Blood Pressure Source [Left Arm] Blood Pressure Position [Left Arm] 02 Sat by Pulse Oximetry 96 Oxygen Delivery Method Room Air Lab Data Labs: Lab Results 08/06/23 14:03: WBC 8.7, RBC 4.84, Hgb 14.6, Hct 44.2, MCV 91.4, MCH 30.2, MCHC 33.0, RDW 15.0, Plt Count 196, MPV 7.9, Neut % (Auto) 63.3, Lymph % (Auto) 28.5, [place] % (Auto) 5.7, Eos % (Auto) 1.8, Baso % (Auto) 0.7, Neut # (Auto) 5.5, Lymph # (Auto) 2.5, [place] # (Auto) 0.5, Eos # (Auto) 0.2, Baso # (Auto) 0.1, PT 11.0, INR 1.02, APTT 30.5, Sodium 138, Potassium 3.9, Chloride 103, Carbon Dioxide 26, Anion Gap 12.9, BUN 20, Creatinine 1.10, Estimated Creat Clear 106, Estimated GFR 68, Est GFR ( Amer) 82, Glucose 95, Calcium 9.3, Magnesium 2.2, Total Bilirubin 1.2, AST 52, ALT 41, Alkaline Phosphatase 132 H, Troponin I 0.11 H, N T-Pro-B Natriuret Pep 1600 H, Total Protein 7.9, Albumin 4.5, Globulin 3.4 H, Albumin/Globulin Ratio 1.3, TSH 1.46, Thyroxine (T4) 9.5 Response Orders (Tests/Meds): ED MEDICATIONS Generic Name Dose Route Start Last Admin Trade Name Freq PRN Reason Stop Dose Admin Acetaminophen 650 mg 08/06/23 15:59 Acetaminophen 325mg Tab PO 09/05/23 15:58 Q4HP PRN Fever or Mild Pain (1-3) Ondansetron HCl 4 mg 08/06/23 15:59 Ondansetron 4mg/2ml Vial IV 09/05/23 15:58 Q8HP PRN Nausea Discontinued Medications Generic Name Dose Route Start Last Admin Trade Name Freq PRN Reason Stop Dose Admin Aspirin 324 mg 08/06/23 15:07 08/06/23 15:23 Aspirin 81mg Chewable Tablet PO 08/06/23 15:08 324 mg ONCE ONE Administration ORDERS Category Date Time Status XR chest portable Stat Exams 08/06/23 14:09 Completed Activated Partial Thrombo Time Stat Lab 08/06/23 14:03 Completed Complete Blood Count Auto Diff Stat Lab 08/06/23 14:03 Completed Comprehensive Metabolic Panel Stat Lab 08/06/23 14:03 Completed Magnesium Stat Lab 08/06/23 14:03 Completed NT Pro Brain Natriuretic Pep. Stat Lab 08/06/23 14:03 Completed Prothrombin Time INR Stat Lab 08/06/23 14:03 Completed T4 (Thyroxine) Stat Lab 08/06/23 14:03 Completed Thyroid Stimulating Hormone Stat Lab 08/06/23 14:03 Completed Troponin I Q3H Lab 08/06/23 17:15 Ordered Troponin I Q3H Lab 08/06/23 20:15 Ordered Troponin I Stat Lab 08/06/23 14:03 Completed ECG Data Tracing #1: Attestation: I reviewed this ECG and interpreted as documented below: ECG Narrative: Sinus rhythm with first-degree AV block with a NC interval of [address] changes concerning for ischemia. Incomplete right bundle branch block noted. ECG initial impression date: 08/06/23 ECG initial impression time: 14:02 MDM Narrative Medical Decision Narrative: In summary, this patient is a 62-year-old male presenting to the Emergency Department for evaluation of chest pain, headache, and bilateral lower extremity swelling. Differential diagnoses considered include but are not limited to hypertensive urgency, hypertensive emergency, CHF exacerbation, ACS. Ruling out the most morbid conditions drove assessment. It should be noted patient's history includes CAD, hypertension, and hyperlipidemia which are not at goal therapy. This complicates all aspects of care by increasing patient's risk for morbidity. I reviewed patient's past medical records and noted previous cardiology evaluation and addition of amlodipine as per HPI. On exam, the patient is in no acute distress. He states he started to feel better. He is mildly hypertensive with systolic of 168, but otherwise vitals are reassuring on cardiac telemetry. He has reassuring cardiopulmonary exam but does have 1+ bilateral lower extremity edema. EKG obtained does not demonstrate any concern for STEMI. Workup included CBC, CMP, troponin, TSH, T4, BNP, chest x-ray. I independently interpreted x-ray prior to the radiologist read and noted no acute focal consolidation but patient does have cardiomegaly. Please see their read for final interpretation. Labs were obtained that demonstrated elevated BNP and elevated troponin. At this time, concern for hypertensive emergency versus NSTEMI. At this time, given elevated troponin, I gave the patient aspirin as well as consulted cardiology. I feel he would benefit from admission for continued cardiac monitoring and serial troponins. Given this, I had an indirect discussion with the hospitalist who admitted the patient for further evaluation and management.
--- NOTE | 2023-08-06 14:08 | PC.NURSE ---
Dr. Franklin at BS for pt eval
--- NOTE | 2023-08-06 14:09 | XR_ITS ---
FINAL REPORT CLINICAL HISTORY: chest pain,soa FINDINGS: SINGLE-VIEW CHEST There is cardiomegaly. Patient is status post median sternotomy. The lungs are clear. There is no pneumothorax. IMPRESSION: No acute cardiopulmonary process. Reviewed, Interpreted and Dictated by Orlando Yao III, MD Transcribed by Samantha Gregorio Authenticated and [facility]
[2023-08-06 14:24] LABS: Chloride 103 mmol/L (98-107)
[2023-08-06 14:25] LABS: Activated Partial Thrombo Time 30.5 seconds (22.8-30.6); INR 1.02 (0.9-1.1); Potassium 3.9 mmoL/L (3.5-5.1); Sodium 138 mmol/L (136-145)
[2023-08-06 14:27] LABS: Alanine Aminotransferase 41 U/L (12-78); Alkaline Phosphatase 132 U/L (38-126); Anion Gap 12.9 mEq/L (5-15); Aspartate Amino Transferase 52 U/L (17-59); Bilirubin,Total 1.2 mg/dl (0.2-1.3); Blood Urea Nitrogen 20 mg/dl (9-20); Carbon Dioxide 26 mmol/L (22.0-30.0); Creatinine Clearance Estimated 106 mL/min (50-200); Estimated Glomerular Filt Rate 68 ml/min (>60); GFR (African American) 82 ML/MIN (>60)
[2023-08-06 14:28] LABS: Albumin Level 4.5 g/dl (3.5-5.0); Albumin/Globulin Ratio 1.3 (1.1-1.8); Calcium 9.3 mg/dl (8.4-10.2); Globulin 3.4 g/dL (1.3-3.2); Glucose 95 mg/dl (74-100); Magnesium 2.2 mg/dl (1.6-2.3); Total Protein,Serum 7.9 g/dl (6.3-8.2)
[2023-08-06 14:33] LABS: Basophils # 0.1 K/mm3 (0-0.2); Basophils % 0.7 % (0.1-2.0); Eosinophils # 0.2 K/mm3 (0.0-0.4); Eosinophils % 1.8 % (0.1-12.0); Hematocrit 44.2 % (42.0-52.0); Hemoglobin 14.6 g/dL (14.1-18.0); Lymphocytes # 2.5 K/mm3 (0.7-4.5); Lymphocytes % 28.5 % (10-50); Mean Corpuscular Hemoglobin 30.2 pg (27.0-31.2); Mean Corpuscular Volume 91.4 fl (80-94); Mean Platelet Volume 7.9 fl (7.4-10.4); Monocytes # 0.5 K/mm3 (0.1-1.0); Monocytes % 5.7 % (1.7-9.3); Neutrophils # 5.5 K/mm3 (1.8-7.8); Neutrophils % 63.3 % (37.0-80.0); Platelet Count 196 K/mm3 (142-424); Red Blood Count 4.84 M/mm3 (4.60-6.20); White Blood Count 8.7 K/mm3 (4.8-10.8)
[2023-08-06 14:36] LABS: NT Pro Brain Natriuretic Pep. 1600 pg/mL (0-125)
[2023-08-06 14:39] LABS: Troponin I 0.11 ng/ml (0.00-0.034)
[2023-08-06 14:44] LABS: T4 (Thyroxine) 9.5 ug/dl (5.53-11.0)
[2023-08-06 14:57] LABS: Thyroid Stimulating Hormone 1.46 uIU/mL (0.465-4.68)
[2023-08-06] MEDS: ASPIRIN 81MG CHEWABLE TABLET 324 MG PO (15:23)
--- NOTE | 2023-08-06 15:43 | PC.NURSE ---
House notified for bed request.
--- NOTE | 2023-08-06 15:51 | PC.NURSE ---
called report to tri alcantar on 2nd floor and answered all questions
--- NOTE | 2023-08-06 15:55 | PC.NURSE ---
awaiting on MD to place admission orders.
--- NOTE | 2023-08-06 15:58 | HMH.PHAINT1 ---
Pharmacy Intervention Comments: MEDICATION RECONCILIATION COMPLETED ON PATIENT USING EXTERNAL FILL HISTORY FROM PHARMACY AND LIST FROM CARDIOLOGY OFFICE. -MAKAYLA MARTÍNEZ, DOMENICD
--- NOTE | 2023-08-06 17:49 | PC.NURSE ---
Patient alert & oriented x4. Tolerating room air well. States he only has chest pain/pressure with exertion and there is no pain present currently. BLE swelling noted. No other complaints this shift. Call light within reach.
[2023-08-06 17:51] LABS: Troponin I 0.12 ng/ml (0.00-0.034)
--- NOTE | 2023-08-06 18:23 | EXP.HP ---
History of Present Illness *Admission Date: 08/06/23 *Reason for visit:: chest pain *History of present illness: Patient is 62-year-old male with past medical history of CAD status post CABG hypertension hyperlipidemia NSTEMI atrial fibrillation who presents to the hospital due to complaints of chest pain bilateral lower extremity swelling. He denied nausea vomiting diarrhea constipation dysuria fevers and chills. On further evaluation patient also mentions he has noted bilateral lower extremity swelling. Patient was further admitted to the hospital for cardiology evaluation [facility] Disclaimer: The information contained in this section may have been updated after the patient was seen, as this information can be updated by other users. Medical History Sinus bradycardia Difficulty swallowing Slow gastric motility Pleural effusion, left On mechanically assisted ventilation Pneumonia Peyronie's disease Dupuytren's contracture of both hands Surgical History S/P CABG x 4 Family History Other COPD (chronic obstructive pulmonary disease) Cancer Coronary artery disease Diabetes Hyperlipidemia Hypertension Pancreatic cancer Stroke Social History Smoking Status: Never smoker alcohol intake: never substance use type: denies use current occupational status: employed Travel in the last 8 weeks: Inside the [place] caffeine: Yes Review of Systems Review of Systems Review of systems:: pertinent systems reviewed and negative unless documented below Meds Home Medications and Allergies Home Medications Medication Instructions Recorded Confirmed Type aspirin 81 mg tablet,delayed 81 mg PO DAILY #0 tabs 03/21/23 08/06/23 Rx release apixaban 5 mg tablet (Eliquis) 5 mg PO BID #60 tabs 05/29/23 08/06/23 Rx metoprolol tartrate 50 mg tablet 50 mg PO BID 05/29/23 08/06/23 History hydrochlorothiazide 25 mg tablet 25 mg PO DAILY #30 tabs 06/07/23 08/06/23 Rx valsartan 320 mg tablet 320 mg PO DAILY #30 tabs 06/11/23 08/06/23 Rx methocarbamol 750 mg tablet 750 mg PO TIDP PRN Muscle Spasm 06/27/23 08/06/23 History pantoprazole 40 mg tablet,delayed 40 mg PO DAILY #30 tabs 06/27/23 08/06/23 Rx release (Protonix) amiodarone 400 mg tablet 200 mg PO DAILY 07/25/23 08/06/23 History amlodipine 10 mg tablet 10 mg PO DAILY #90 tabs 07/25/23 08/06/23 Rx atorvastatin 80 mg tablet 80 mg PO HS #30 tabs 07/31/23 08/06/23 Rx New Prescriptions to Start Prescriptions: Allergies Allergy/AdvReac Type Severity Reaction Status Date / Time No Known Allergies Allergy Verified 07/02/23 09:35 Exam Data for Last 24 hours Vital signs and Labs for Last 24 Hours: Temp Pulse Resp BP Pulse Ox O2 Del Method 97.8 F 55 L 24 159/82 H 99 Room Air 08/06/23 16:19 08/06/23 16:19 08/06/23 16:19 08/06/23 16:19 08/06/23 17:23 08/06/23 17:23 Laboratory Results - last 24 hr 08/06/23 14:03: WBC 8.7, RBC 4.84, Hgb 14.6, Hct 44.2, MCV 91.4, MCH 30.2, MCHC 33.0, RDW 15.0, Plt Count 196, MPV 7.9, Neut % (Auto) 63.3, Lymph % (Auto) 28.5, [place] % (Auto) 5.7, Eos % (Auto) 1.8, Baso % (Auto) 0.7, Neut # (Auto) 5.5, Lymph # (Auto) 2.5, [place] # (Auto) 0.5, Eos # (Auto) 0.2, Baso # (Auto) 0.1, PT 11.0, INR 1.02, APTT 30.5, Sodium 138, Potassium 3.9, Chloride 103, Carbon Dioxide 26, Anion Gap 12.9, BUN 20, Creatinine 1.10, Estimated Creat Clear 106, Estimated GFR 68, Est GFR ( Amer) 82, Glucose 95, Calcium 9.3, Magnesium 2.2, Total Bilirubin 1.2, AST 52, ALT 41, Alkaline Phosphatase 132 H, Troponin I 0.11 H, NT-Pro-B Natriuret Pep 1600 H, Total Protein 7.9, Albumin 4.5, Globulin 3.4 H, Albumin/Globulin Ratio 1.3, TSH 1.46, Thyroxine (T4) 9.5 08/06/23 17:19: Troponin I 0.12 H I & O for Last 24 hours: Intake & Output 08/03/23 08/04/23 08/05/23 08/06/23 23:59 23:59 23:59 23:59 Intake Total 540 / 540 Output Total 0 / 0 Balance 540 / 540 Weight 107.615 kg Constitutional Constitutional: no acute distress *Routine HEENT Exam Head: Present normocephalic Eye: Present EOMI and PERRL ENT: Present mucous membranes moist *Routine Neck Exam Neck: Present supple; Absent lymphadenopathy *Routine Respiratory Exam Respiratory: Present CTA bilaterally *Routine Cardiovascular Exam Cardiovascular: Present RRR *Routine Abdominal Exam Abdominal: Present soft and normoactive bowel sounds; Absent tenderness *Routine Rectal Exam Rectal:: deferred *Routine Genitalia Exam Genitalia:: deferred *Routine Extremities Exam Extremities: Absent cyanosis, clubbing or edema *Routine Skin Exam Skin: Present warm; Absent rash *Routine Neurological Exam Neurological: Present alert and oriented X3 Assessment and Plan *Assessment and plan (1) Elevated troponin: Status: Acute Category: Medical Code(s): R79.89 - Other specified abnormal findings of blood chemistry (2) Hypertension: Status: Acute Category: Medical Code(s): I10 - Essential (primary) hypertension (3) Chest pain: Status: Acute Category: Medical Code(s): R07.9 - Chest pain, unspecified (4) GERD without esophagitis: Status: Acute Category: Medical Code(s): K21.9 - Gastro-esophageal reflux disease without esophagitis (5) Difficulty swallowing: Status: Acute Qualifiers: Dysphagia type: esophageal phase Qualified Code(s): R13.19 - Other dysphagia Category: Medical Code(s): R13.10 - Dysphagia, unspecified (6) Slow gastric motility: Status: Acute Category: Medical Code(s): K31.84 - Gastroparesis Plan Patient is 62-year-old male with past medical history of CAD status post CABG hypertension hyperlipidemia NSTEMI atrial fibrillation who presents to the hospital due to complaints of chest pain bilateral lower extremity swelling. He denied nausea vomiting diarrhea constipation dysuria fevers and chills. On further evaluation patient also mentions he has noted bilateral lower extremity swelling. Patient was further admitted to the hospital for cardiology evaluation Assessment and plan Chest pain, rule out ACS History of CAD History of CABG times 25 February 2023 Bradycardia Monitor on cardiac haulage boss troponin Consult cardiology Resume home, Eliquis, continue, Lipitor Hold home amiodarone and metoprolol given bradycardia for now Obesity complicates all aspects of care DVT prophylaxis on Eliquis
[2023-08-06] MEDS: ATORVASTATIN 40MG TABLET 80 MG PO (20:04)
[2023-08-06] MEDS: APIXABAN 5MG TABLET 5 MG PO (20:04)
[2023-08-06 20:53] LABS: Troponin I 0.11 ng/ml (0.00-0.034)
[2023-08-07] VITALS: BP 142/84; PULSE 60; RESP 18; TEMP 36.5; O2SAT 98
[2023-08-07 04:00] VITALS: BP 139/89; PULSE 56; PULSE 63; RESP 16; TEMP 36.5; O2SAT 97; BMI 34.7
--- NOTE | 2023-08-07 05:13 | PC.NURSE ---
VITAL SIGNS STABLE. A/O X 4. PATIENT DENIES CHEST PAIN/SOA. HAS RESTED WELL THIS SHIFT. SINUS YESSY/1ST DEGREE AVB/BBB NOTED ON TELE. HAS BEEN NPO SINCE MIDNIGHT.
[2023-08-07 06:48] LABS: Anion Gap 10.3 mEq/L (5-15); Blood Urea Nitrogen 17 mg/dl (9-20); Calcium 8.7 mg/dl (8.4-10.2); Carbon Dioxide 28 mmol/L (22.0-30.0); Chloride 105 mmol/L (98-107); Creatinine Clearance Estimated 117 mL/min (50-200); Estimated Glomerular Filt Rate 76 ml/min (>60); GFR (African American) 92 ML/MIN (>60); Glucose 96 mg/dl (74-100); Potassium 3.3 mmoL/L (3.5-5.1); Sodium 140 mmol/L (136-145)
[2023-08-07 07:00] LABS: Basophils % 0.6 % (0.1-2.0); Eosinophils # 0.2 K/mm3 (0.0-0.4); Eosinophils % 2.8 % (0.1-12.0); Hematocrit 44.9 % (42.0-52.0); Hemoglobin 14.6 g/dL (14.1-18.0); Lymphocytes # 2.1 K/mm3 (0.7-4.5); Lymphocytes % 29.7 % (10-50); Mean Corpuscular HGB Conc 32.4 g/dL (31.8-35.4); Mean Corpuscular Hemoglobin 30.4 pg (27.0-31.2); Mean Corpuscular Volume 93.8 fl (80-94); Mean Platelet Volume 7.7 fl (7.4-10.4); Monocytes # 0.5 K/mm3 (0.1-1.0); Monocytes % 7.6 % (1.7-9.3); Neutrophils # 4.2 K/mm3 (1.8-7.8); Neutrophils % 59.3 % (37.0-80.0); Platelet Count 171 K/mm3 (142-424); Red Blood Count 4.78 M/mm3 (4.60-6.20); Red Cell Distribution Width 15.1 % (11.5-17.5); White Blood Count 7.1 K/mm3 (4.8-10.8)
[2023-08-07 08:00] VITALS: BP 134/79; PULSE 63; PULSE 65; RESP 17; TEMP 36.4; O2SAT 96
[2023-08-07] MEDS: PANTOPRAZOLE 40MG TABLET 40 MG PO (08:17)
[2023-08-07] MEDS: IRBESARTAN 300MG TABLET 300 MG PO (08:17)
[2023-08-07] MEDS: ASPIRIN EC 81MG TABLET 81 MG PO (08:17)
[2023-08-07] MEDS: APIXABAN 5MG TABLET 5 MG PO (08:17)
[2023-08-07] MEDS: AMLODIPINE 10MG TABLET 10 MG PO (08:17)
[2023-08-07] MEDS: hydroCHLOROthiazide 25MG TABLET 25 MG PO (08:17)
--- NOTE | 2023-08-07 08:49 | CA_ITS ---
APPROVED REPORT EXAM: Comprehensive 2D, Doppler, and color-flow Echocardiogram [employer] Instructor: Jory Morton, RCS, RVS Ht: 5 ft 9 in Wt: 234lbs BSA: 2.21 BP: 169/102 mmHg Indications: Chest pressure, CAD CABG-05/2023 Afib, GERD, Hx-NSTEMI, HTN, [place] 05/2023 2D Dimensions Left Atrium 4.23 cm M: 3.0 - 4.0 M-Mode Dimensions RVDd 3.55 cm (0.9-2.6) LA Diam 4.92 cm (1.9-4.0) LVDd 5.85 cm (3.5-5.7) LVDs 3.77 cm (3.5-5.7) IVSd 1.03 cm (0.6-1.1) PWd 1.05 cm (0.6-1.1) EF (Teich) 64.20% EPSs 1.57 cm FS 35.60% EDV (Teich) 169.90 mL TAPSE 2.42 (<1.7) ESV (Teich) 60.80 mL LV Diastology E Decel Time 160 (160-240 msec) E/A Ratio 1.93 MED A' 8.00 cm/s LAT A' 5.90 cm/s Aortic Valve SEJAL Index 1.61 cm2/m2 AoV Peak [place]. 118.0 (50-130 cm/s) AO Peak GR. 5.60 mmHg AO Mean GR. 2.70 (<5 mmHg) AO VTI 23.6 (18-25 cm) SEJAL (VTI) 3.64 (2.5-4.5 cm2) Mitral Valve MV A Velocity 49.0 (40-130 cm/s) E/A Ratio 1.93 Pulmonary Valve PV Peak Velocity 76.0 (50-150 cm/s) MA End VMAX 179.0 cm/s Tricuspid Valve TR P. Velocity 267.00 cm/s Left Ventricle The left ventricle is normal size. The left ventricular systolic function is normal. The left ventricular ejection fraction is within the normal range. There is increased LV wall thickness. There is normal LV segmental wall motion. The left ventricular diastolic function is normal. LVEF is 60%. Right Ventricle The right ventricle is mildly dilated. The right ventricular systolic function is normal. Atria Left atrium is moderately dilated. Right atrium is moderately dilated. The interatrial septum is not well-visualized. Aortic Valve The aortic valve is mildly thickened. There is no aortic valvular stenosis. No aortic regurgitation is present. Mitral Valve The mitral valve is normal in structure. No evidence of mitral valve stenosis. Trace mitral regurgitation. Tricuspid Valve The tricuspid valve leaflets are thin and pliable. Mild tricuspid regurgitation. RVSP is 27 mmHg + RA pressure. Pulmonic Valve The pulmonary valve is normal in structure. Mild pulmonic regurgitation. Great Vessels The aortic root is normal in size. The ascending aorta is borderline dilated, measuring 3.8 cm in diameter. The IVC is not well-visualized. Pericardium There is no pericardial effusion. Other Information Study Quality: Technically Difficult Conclusion Technically difficult study due to poor acoustic windows. Normal biventricular systolic function. Mild RV dilation. Severe biatrial dilation. Mild TR. Ascending aorta is borderline dilated, measuring 3.8 cm in diameter. Electronically signed by : Casandra Valdez MD 08/08/2023 23:39:50
--- NOTE | 2023-08-07 11:41 | EXP.CARD.CON ---
History of Present Illness History of Present Illness Consult date: 08/07/23 Requesting physician: Cuate Shukla Consult reason: chest pain Chief complaint: chest pain History of present illness: 62-year-old white male with history of CAD status post CABG in March of this year. He had subsequent atrial fibrillation and underwent [place] cardioversion in May and had aspiration requiring intubation and admission for several days. He was discharged home after cardioversion on amiodarone and has remained in sinus rhythm since that time. In the interim he is been referred to for A-fib ablation and is awaiting this procedure. He is seeing GI for delayed gastric emptying which led to his aspiration. Last office visit was several weeks ago and I increased his home blood pressure medicine. He presented to the emergency room last night complaining of several days of episodic chest discomfort as well as pressure in his head which which seemed worse with activity but not improved with rest. On arrival his BP was 160/100 and when it was reduced below 150 he felt improvement in symptoms. First troponin was 0.1 so he was admitted overnight for observation. Next 2 troponins remain flat at 0.1. His blood pressures down to the 130s this morning and he reports being symptom-free. Repeat echo was ordered to assess for wall motion changes and is pending. [facility] Disclaimer: The information contained in this section may have been updated after the patient was seen, as this information can be updated by other users. Medical History Sinus bradycardia Difficulty swallowing Slow gastric motility Pleural effusion, left On mechanically assisted ventilation Pneumonia Peyronie's disease Dupuytren's contracture of both hands Surgical History S/P CABG x 4 Family History Other COPD (chronic obstructive pulmonary disease) Cancer Coronary artery disease Diabetes Hyperlipidemia Hypertension Pancreatic cancer Stroke Social History Smoking Status: Never smoker alcohol intake: never substance use type: denies use current occupational status: employed Travel in the last 8 weeks: Inside the [place] caffeine: Yes Review of Systems Constitutional Constitutional: Denies fatigue, Reports headache(s) and Denies weakness Eyes Eyes: Denies loss of vision ENT Ears, Nose, Mouth, and Throat: Reports headache(s), Denies hearing loss and Denies vertigo *Cardiovascular Cardiovascular: Reports chest pain, Denies dyspnea and Denies syncope *Respiratory Respiratory: Denies cough and Denies dyspnea *Gastrointestinal Gastrointestinal: Denies change in stool character, Denies nausea and Denies vomiting *Genitourinary Genitourinary: Denies difficulty urinating *Musculoskeletal Musculoskeletal: Denies muscle weakness Integumentary/Breasts Skin/Breast: Denies changing lesions *Neurologic Neurologic: Reports headache(s), Denies loss of vision, Denies syncope, Denies vertigo and Denies weakness Endocrine Endocrine: Denies fatigue Exam Data for Last 24 hours Vital signs and Labs for Last 24 Hours: Temp Pulse Resp BP Pulse Ox O2 Del Method 97.5 F L 63 17 134/79 96 Room Air 08/07/23 08:00 08/07/23 08:00 08/07/23 08:00 08/07/23 08:00 08/07/23 08:00 08/07/23 11:00 Laboratory Results - last 24 hr 08/06/23 14:03: WBC 8.7, RBC 4.84, Hgb 14.6, Hct 44.2, MCV 91.4, MCH 30.2, MCHC 33.0, RDW 15.0, Plt Count 196, MPV 7.9, Neut % (Auto) 63.3, Lymph % (Auto) 28.5, [place] % (Auto) 5.7, Eos % (Auto) 1.8, Baso % (Auto) 0.7, Neut # (Auto) 5.5, Lymph # (Auto) 2.5, [place] # (Auto) 0.5, Eos # (Auto) 0.2, Baso # (Auto) 0.1, PT 11.0, INR 1.02, APTT 30.5, Sodium 138, Potassium 3.9, Chloride 103, Carbon Dioxide 26, Anion Gap 12.9, BUN 20, Creatinine 1.10, Estimated Creat Clear 106, Estimated GFR 68, Est GFR ( Amer) 82, Glucose 95, Calcium 9.3, Magnesium 2.2, Total Bilirubin 1.2, AST 52, ALT 41, Alkaline Phosphatase 132 H, Troponin I 0.11 H, NT-Pro-B Natriuret Pep 1600 H, Total Protein 7.9, Albumin 4.5, Globulin 3.4 H, Albumin/Globulin Ratio 1.3, TSH 1.46, Thyroxine (T4) 9.5 08/06/23 17:19: Troponin I 0.12 H 08/06/23 20:00: Troponin I 0.11 H 08/06/23 22:07: Troponin I 0.10 H 08/07/23 05:43: WBC 7.1, RBC 4.78, Hgb 14.6, Hct 44.9, MCV 93.8, MCH 30.4, MCHC 32.4, RDW 15.1, Plt Count 171, MPV 7.7, Neut % (Auto) 59.3, Lymph % (Auto) 29.7, [place] % (Auto) 7.6, Eos % (Auto) 2.8, Baso % (Auto) 0.6, Neut # (Auto) 4.2, Lymph # (Auto) 2.1, [place] # (Auto) 0.5, Eos # (Auto) 0.2, Baso # (Auto) 0.0, Sodium 140, Potassium 3.3 L, Chloride 105, Carbon Dioxide 28, Anion Gap 10.3, BUN 17, Creatinine 1.00, Estimated Creat Clear 117, Estimated GFR 76, Est GFR ( Amer) 92, Glucose 96, Calcium 8.7 I & O for Last 24 hours: Intake & Output 08/04/23 08/05/23 08/06/23 08/07/23 23:59 23:59 23:59 23:59 Intake Total 540 / 900 360 / 360 Output Total 0 / 0 Balance 539 / 899 360 / 360 Weight 237 lb 4 oz 234 lb 14.4 oz Constitutional Constitutional: no acute distress and cooperative *Routine HEENT Exam Eye: Present PERRL *Routine Respiratory Exam Respiratory: Present CTA bilaterally; Absent accessory muscle use, wheezes or crackles *Routine Cardiovascular Exam Cardiovascular: Present RRR, Normal S1 and Normal S2; Absent murmur, gallop or rubs *Routine Abdominal Exam Abdominal: Present soft; Absent tenderness *Routine Extremities Exam Extremities: Present pulses intact; Absent cyanosis or edema *Routine Skin Exam Skin: Present intact; Absent erythema or wounds *Routine Neurological Exam Neurological: Present alert and oriented X3 Routine Psychiatric Exam Psychiatric: Present cooperative Meds Home Medications and Allergies Home Medications Medication Instructions Recorded Confirmed Type aspirin 81 mg tablet,delayed 81 mg PO DAILY #0 tabs 03/21/23 08/06/23 Rx release apixaban 5 mg tablet (Eliquis) 5 mg PO BID #60 tabs 05/29/23 08/06/23 Rx metoprolol tartrate 50 mg tablet 50 mg PO BID 05/29/23 08/06/23 History hydrochlorothiazide 25 mg tablet 25 mg PO DAILY #30 tabs 06/07/23 08/06/23 Rx valsartan 320 mg tablet 320 mg PO DAILY #30 tabs 06/11/23 08/06/23 Rx methocarbamol 750 mg tablet 750 mg PO TIDP PRN Muscle Spasm 06/27/23 08/06/23 History pantoprazole 40 mg tablet,delayed 40 mg PO DAILY #30 tabs 06/27/23 08/06/23 Rx release (Protonix) amiodarone 400 mg tablet 200 mg PO DAILY 07/25/23 08/06/23 History amlodipine 10 mg tablet 10 mg PO DAILY #90 tabs 07/25/23 08/06/23 Rx atorvastatin 80 mg tablet 80 mg PO HS #30 tabs 07/31/23 08/06/23 Rx New Prescriptions to Start Prescriptions: Allergies Allergy/AdvReac Type Severity Reaction Status Date / Time No Known Allergies Allergy Verified 07/02/23 09:35 Assessment and Plan *Assessment and plan (1) Hypertension: Status: Acute Category: Medical Code(s): I10 - Essential (primary) hypertension (2) Chest pain: Status: Acute Category: Medical Code(s): R07.9 - Chest pain, unspecified (3) Elevated troponin: Status: Acute Category: Medical Code(s): R79.89 - Other specified abnormal findings of blood chemistry Plan MV-CAD s/p CABG 03/2023 with chest pain and elevated trop - chest pain is not anginal description and seems to be associated with his elevated BP - EKG shows SR without ischemic changes - Trop flat 0.1 x3 - ECHO pending - Plan: Cont home dose ASA, Eliquis, Statin. Check 2D ECHO Htn - improving control - cont ARB, HCTZ, and CCB PAF - SR here - scheduled for a-fib ablation at on 5/22 - Cont Eliquis and Amiodarone - no BB due to bradycardia Headache - improving with BP control, no neurologic symptoms Delayed Gastric Emptying with recent aspiration - seeing GI outpatient 08/06 summary: I think patient symptoms are secondary to his blood pressure. He is feeling much better this morning, I have asked him and nurse to ambulate in the hallway and see how he feels. Further plans pending echo results.
[2023-08-07 11:43] VITALS: BP 151/79; PULSE 65; RESP 20; TEMP 36.5; O2SAT 96
[2023-08-07 12:00] VITALS: PULSE 55
[2023-08-07] MEDS: ISOSORBIDE MONO 30MG TAB.ER.24H 30 MG PO (15:19)
--- NOTE | 2023-08-07 15:46 | P.DS_ITS ---
General Admission date:: 08/06/23 Discharge date: 08/07/23 HPI HPI HPI: Patient is 62-year-old male with past medical history of CAD status post CABG hypertension hyperlipidemia NSTEMI atrial fibrillation who presents to the hospital due to complaints of chest pain bilateral lower extremity swelling. He denied nausea vomiting diarrhea constipation dysuria fevers and chills. On further evaluation patient also mentions he has noted bilateral lower extremity swelling. Patient was further admitted to the hospital for cardiology evaluation Hospital Course Hospital Course Hospital Course: Patient is 62-year-old male with past medical history of CAD status post CABG hypertension hyperlipidemia NSTEMI atrial fibrillation who presents to the hospital due to complaints of chest pain bilateral lower extremity swelling. He denied nausea vomiting diarrhea constipation dysuria fevers and chills. On further evaluation patient also mentions he has noted bilateral lower extremity swelling. Patient was further admitted to the hospital for cardiology evaluation Patient was seen and evaluated by cardiology, patient denied any further chest pain, cardiology recommend outpatient follow up, they added imdure, prescription sent. Patient agreed with discharge plan and wishes to be discharged Chest pain - ACS ruled out per cardiology stop metoprolol due to bradycardia per cardiology Exam Data for Last 24 hours Vital signs and Labs for Last 24 Hours: Temp Pulse Resp BP Pulse Ox O2 Del Method 97.7 F 55 L 20 151/79 H 96 Room Air 08/07/23 11:43 08/07/23 12:00 08/07/23 11:43 08/07/23 11:43 08/07/23 11:43 08/07/23 13:00 Laboratory Results - last 24 hr 08/06/23 17:19: Troponin I 0.12 H 08/06/23 20:00: Troponin I 0.11 H 08/06/23 22:07: Troponin I 0.10 H 08/07/23 05:43: WBC 7.1, RBC 4.78, Hgb 14.6, Hct 44.9, MCV 93.8, MCH 30.4, MCHC 32.4, RDW 15.1, Plt Count 171, MPV 7.7, Neut % (Auto) 59.3, Lymph % (Auto) 29.7, [place] % (Auto) 7.6, Eos % (Auto) 2.8, Baso % (Auto) 0.6, Neut # (Auto) 4.2, Lymph # (Auto) 2.1, [place] # (Auto) 0.5, Eos # (Auto) 0.2, Baso # (Auto) 0.0, Sodium 140, Potassium 3.3 L, Chloride 105, Carbon Dioxide 28, Anion Gap 10.3, BUN 17, Creatinine 1.00, Estimated Creat Clear 117, Estimated GFR 76, Est GFR ( Amer) 92, Glucose 96, Calcium 8.7 I & O for Last 24 hours: Intake & Output 08/04/23 08/05/23 08/06/23 08/07/23 23:59 23:59 23:59 23:59 Intake Total 540 / 900 720 / 720 Output Total 0 / 0 Balance 539 / 899 720 / 720 Weight 107.615 kg 106.549 kg Constitutional Constitutional: no acute distress *Routine HEENT Exam Head: Present normocephalic Eye: Present EOMI and PERRL ENT: Present mucous membranes moist *Routine Neck Exam Neck: Present supple; Absent lymphadenopathy *Routine Respiratory Exam Respiratory: Present CTA bilaterally *Routine Cardiovascular Exam Cardiovascular: Present RRR *Routine Abdominal Exam Abdominal: Present soft and normoactive bowel sounds; Absent tenderness *Routine Extremities Exam Extremities: Absent cyanosis, clubbing or edema *Routine Skin Exam Skin: Present warm; Absent rash *Routine Neurological Exam Neurological: Present alert and oriented X3 Results Data Completed and Pending Labs on day of discharge: Labs from last 24 hours 08/07/23 08/06/23 08/06/23 05:43 22:07 20:00 WBC 7.1 RBC 4.78 Hgb 14.6 Hct 44.9 MCV 93.8 MCH 30.4 MCHC 32.4 RDW 15.1 Plt Count 171 MPV 7.7 Neut % (Auto) 59.3 Lymph % (Auto) 29.7 [place] % (Auto) 7.6 Eos % (Auto) 2.8 Baso % (Auto) 0.6 Neut # (Auto) 4.2 Lymph # (Auto) 2.1 [place] # (Auto) 0.5 Eos # (Auto) 0.2 Baso # (Auto) 0.0 Sodium 140 Potassium 3.3 L Chloride 105 Carbon Dioxide 28 Anion Gap 10.3 BUN 17 Creatinine 1.00 Estimated Creat Clear 117 Estimated GFR 76 Est GFR ( Amer) 92 Glucose 96 Calcium 8.7 Troponin I 0.10 H 0.11 H 08/06/23 17:19 WBC RBC Hgb Hct MCV MCH MCHC RDW Plt Count MPV Neut % (Auto) Lymph % (Auto) [place] % (Auto) Eos % (Auto) Baso % (Auto) Neut # (Auto) Lymph # (Auto) [place] # (Auto) Eos # (Auto) Baso # (Auto) Sodium Potassium Chloride Carbon Dioxide Anion Gap BUN Creatinine Estimated Creat Clear Estimated GFR Est GFR ( Amer) Glucose Calcium Troponin I 0.12 H DS: Diagnosis Discharge Diagnosis (1) Hypertension: Status: Acute Code(s): I10 - Essential (primary) hypertension (2) Chest pain: Status: Acute Code(s): R07.9 - Chest pain, unspecified (3) Elevated troponin: Status: Acute Code(s): R79.89 - Other specified abnormal findings of blood chemistry Meds Home Medications and Allergies Home Medications Medication Instructions Recorded Confirmed Type aspirin 81 mg tablet,delayed 81 mg PO DAILY #0 tabs 03/21/23 08/06/23 Rx release apixaban 5 mg tablet (Eliquis) 5 mg PO BID #60 tabs 05/29/23 08/06/23 Rx hydrochlorothiazide 25 mg tablet 25 mg PO DAILY #30 tabs 06/07/23 08/06/23 Rx valsartan 320 mg tablet 320 mg PO DAILY #30 tabs 06/11/23 08/06/23 Rx methocarbamol 750 mg tablet 750 mg PO TIDP PRN Muscle Spasm 06/27/23 08/06/23 History pantoprazole 40 mg tablet,delayed 40 mg PO DAILY #30 tabs 06/27/23 08/06/23 Rx release (Protonix) amiodarone 400 mg tablet 200 mg PO DAILY 07/25/23 08/06/23 History amlodipine 10 mg tablet 10 mg PO DAILY #90 tabs 07/25/23 08/06/23 Rx atorvastatin 80 mg tablet 80 mg PO HS #30 tabs 07/31/23 08/06/23 Rx isosorbide mononitrate 30 mg 30 mg PO DAILY 30 days #30 tabs 08/07/23 Rx tablet,extended release 24 hr New Prescriptions to Start Prescriptions: isosorbide mononitrate Cuate Shukla Allergies Allergy/AdvReac Type Severity Reaction Status Date / Time No Known Allergies Allergy Verified 07/02/23 09:35 Discharge Plan Disposition Patient Disposition: Home, Self-Care Condition: Good Follow up Plan Follow up with: Dalton Martini PA [Physician [facility] [employer]] - 08/14/23 9:00 am Maksim Collier [Primary Care Provider] - 08/14/23 8:30 am Prescriptions/Medication Reconciliation: New isosorbide mononitrate 30 mg Tablet Extended Release 24 Hr 30 mg PO DAILY 30 Days Qty: 30 0RF Continued Eliquis 5 mg tablet 5 mg PO BID Qty: 60 5RF valsartan 320 mg tablet 320 mg PO DAILY Qty: 30 5RF amlodipine 10 mg tablet 10 mg PO DAILY Qty: 90 3RF amiodarone 400 mg tablet 200 mg PO DAILY methocarbamol 750 mg tablet 750 mg PO TIDP PRN (Reason: Muscle Spasm) Patient Comments: TAKE 1 TABLET BY MOUTH THREE TIMES DAILY NEEDED FOR MUSCLE SPASM pantoprazole [Protonix] 40 mg tablet,delayed release (DR/EC) 40 mg PO DAILY Qty: 30 3RF hydrochlorothiazide 25 mg tablet 25 mg PO DAILY Qty: 30 2RF atorvastatin 80 mg tablet 80 mg PO HS Qty: 30 7RF aspirin 81 mg Tablet,Delayed Release (Dr/Ec) 81 mg PO DAILY Qty: 0 0RF Discontinued metoprolol tartrate 50 mg tablet 50 mg PO BID Patient Comments: TAKE 1 TABLET BY MOUTH TWICE DAILY Problem Reconciliation Problems Reviewed?: Yes Patient Discharge Instructions ACTIVITY: Ambulate as tolerated DIET: continue same diet Patient Instructions: DI for Angina Providers Primary Care Provider: Maksim Collier Admit Provider: Cuate Shukla Attending Provider: Cuate Shukla
--- NOTE | 2023-08-09 10:16 | CARE MANAGER ---
Called and spoke with patient regarding recent discharge. Patient stated that he is doing well and has started new medication. No concerns voiced at time of call.
== END 2023-08-07 16:13 | disposition home or self-care (01) ==
LOC: ER 15:13 → 2ND 15:54
PROVIDERS: Admitting Provider Internal Medicine; Emergency Provider Emergency Medicine; PCP Family Medicine; Visit Provider Internal Medicine
DX: R79.89 Other specified abnormal findings of blood chemistry (principal); I10 Essential (primary) hypertension; I25.10 Atherosclerotic heart disease of native coronary artery without angina pectoris; Z95.1 Presence of aortocoronary bypass graft; I48.0 Paroxysmal atrial fibrillation; R07.9 Chest pain, unspecified; K21.9 Gastro-esophageal reflux disease without esophagitis; K31.84 Gastroparesis; Z79.899 Other long term (current) drug therapy; I25.2 Old myocardial infarction; E78.5 Hyperlipidemia, unspecified; Z79.01 Long term (current) use of anticoagulants
CPT/HCPCS: 36415; 71045; 80048; 80053; 83735; 83880; 84436; 84443; 84484; 85025; 85610; 85730; 93005; 93306; 99285; G0378

== ENCOUNTER 2024-10-08 11:41 | Outpatient (CLI) | payer BC, SELFPAY ==
--- OUTSIDE RECORDS SUMMARY | 2024-10-08 11:43 | XMS_ITS | Clinical Summary ---
Author Organization [facility] [place] Address [address] [place] [address] Phone Care Team Providers Care Bellperson Name Role Phone No Pcp, Per Patient Primary Care Provider Unavai lable Allergies Active Allergy Reactions Criticality Noted Date Comments Dog Dander Other (See Comments) Medium 06/03/2019 Itchy eyes and a cough like trying to cough the dander up Medications No known medications Active Problems Problem Noted Date Diagnosed Date Peyronie's disease 05/18/2019 Overview (05/18/2019): Added automatically from request for surgery [id number] Surgical History Surgery Date Site/Laterality Comments VASECTOMY HAND SURGERY Right PENIS SURGERY 06/03/2019 N/A penile plication; Surgeon: Sarah Mitchell MD; Location: [facility] MAIN OR; Service: Urology Medical History Medical History Date Comments Umbilical hernia Arthritis lumbar Peyronie's disease Family History Medical History Relation Name Comments Diabetes Father Heart Disease Father Cancer Mother Anesth Problems Neg Hx Relation Name Status Comments Father Mother Alive Social History Tobacco Use Types Packs/Day Years Used Date Smoking Tobacco: Never Smokeless Tobacco: Never Alcohol Use Standard Drinks/Week Comments Not Currently 0 (1 standard drink = 0.6 oz pur e alcohol) Sex and Gender Information Value Date Recorded Sex Assigned at Not on file Legal Sex Male 8:14 PM EDT Gender Identity Not on file Sexual Orientation Not on file Obstetrics History Last Filed Vital Signs Vital Sign Reading Time Taken Comments Blood Pressure 139/89 11/04/2023 11:00 AM EDT Pulse 57 11/04/2023 11:30 AM EDT Temperature 36.6 C (97.9 F) 11/04/2023 8:20 AM EDT Respiratory Rate 28 11/04/2023 11:3 0 AM EDT Oxygen Saturation 96% 11/04/2023 11: 30 AM EDT Inhaled Oxygen Concentration - - Weight 109.8 kg (242 lb 1.6 oz) 11/04/2023 8:20 AM EDT Height 177.8 cm (5' 10 ) 11/04/2023 8:20 AM EDT Body Mass Index 34.74 11/04/2023 8:20 AM EDT Plan of Treatment Health Maintenance Due Date Last Done Comments Annual Wellness Exam 1963 Hepatitis C Screening 08/17/1979 Cologuard 2006 Colon Cancer Screening 2006 Colonoscopy 2006 FIT 2006 Sigmoidoscopy 2006 Virtual Colonography 2006 Pneumococcal Vaccine 50+ (1 of 1 - PCV) 08/17/2011 Hepatitis B Vaccine (2 of 3 - 19+ 3-dose series) 01/09/2016 12/12/2015 DTaP/TDaP/Td (2 - Tdap) 07/22/2019 07/21/2009 COVID-19 Vaccine (1 - 2023-2 5 season) 2023 Influenza Vaccine (#1) 2024 9, 12/12/2015 Zoster Completed 10/21/2017, 07/23/2017 Meningococcal B Vaccine Aged Out No l onger eligible based on patient's age to complete this topic Insurance PPO Care Teams Bellperson Relationship Specialty Start Date End Date No Pcp, Per Patient PCP - General 11/04/23
--- OUTSIDE RECORDS SUMMARY | 2024-10-08 11:43 | XMS_ITS | Clinical Summary ---
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 100 tablet 04/01/2023 Active apixaban (Eliquis) 5 MG tablet Take 1 tablet (5 mg) by mouth 2 (two) times a day. 60 tablet 1 04/01/2023 Active atorvastatin (Lipitor) 80 MG tablet Take 1 tablet (80 mg) by mouth every night. 30 tablet 3 04/01/2023 Active amiodarone (Pacerone) 400 MG tablet Take 0.5 tablets (200 mg) by mouth 1 (one) time each day. 05/30/2023 Active isosorbide mononitrate ER (Imdur) 30 MG 24 hr tablet Take 1 tablet (30 mg) by mouth 1 (one) time each day. Do not crush or chew. Active amLODIPine (Norvasc) 10 MG tablet Take 0.5 tablets (5 mg) by mouth 1 (one) time each day. Active ASPIRIN 81 MG chewable tablet Chew 1 tablet (81 mg) 1 (one) time each day. Active hydroCHLOROthiaz julianna (HYDRODiuril) 25 MG tablet Take 1 tablet (25 mg) by mouth 1 (one) time each day. Active pantoprazole (Protonix) 40 MG EC tablet Take 1 tablet (40 mg) by mouth 1 (one) time each day before breakfast. Do not crush, chew, or split. Active valsartan (Diovan) 320 MG tablet Take 1 tablet (320 mg) by mouth 1 (one) time each day. Active methocarbamol (Robaxin) 750 MG tablet Take 1 tablet (750 mg) by mouth every 8 (eight) hours if needed for muscle spasms. 30 tablet 2 09/04/2023 Active Active Problems Problem Noted Date Diagnosed Date BMI 33.0-33.9,adult 04/23/2023 Biatrial enlargement 03/30/2023 H/O four vessel coronary artery bypass graft 06/2023 Concentric left ventricular hypertrophy 03/22/20 Mild tricuspid regurgitation 03/22/2023 Mild pulmonary valve regurgitation 03/22/2023 Coronary artery disease invo lving [place] coronary artery of [place] heart without angina pectoris 03/22/2023 Atrial fibrillation 03/22/2023 Primary hypertension 03/22/2023 Hyperlipidemia 03/22/2023 Hypercholesteremia 03/22/2023 Hypertriglyceridemia 03/22/2023 Obesity 03/22/2023 NSTEMI (non-ST elevated myocardial infarction) 1 05/22/2022 Resolved Problems Problem Noted Date Diagnosed Date Resolved Date Volume overload 03/30/2023 04/01/2023 Acute postoperative anemia d ue to expected blood loss 03/30/2023 04/01/2023 Leukocytosis 03/30/2023 04/01/2023 Thrombocytopenia 03/30/2023 04/01/2023 Hyperglycemia 03/28/2023 03/30/2023 Acute bilateral low back andrez n without sciatica 03/28/2023 03/30/2023 Overview (03/28/2023): Continue robaxin 1g QID Prn oxy & dilaudid Hyperkalemia 03/27/2023 03/28/2023 Overview (03/27/2023): Monitor K Correct as needed Hypokalemia 03/22/2023 03/27/2023 Hypocalcemia 03/22/2023 03/27/2023 Immunizations Immunization Administration Dates Next Due DTP 07/21/2009 Social History Tobacco Use Types Packs/Day Years Used Date Smoking Tobacco: Never Smokeless Tobacco: Never Tobacco Cessation:Counseling Given: Not Answered Alcohol Use Standard Drinks/Week Comments Defer 0 (1 standard drink = 0.6 oz pur e alcohol) Humiliation, Afraid, Rape, and Kick questionnair e Answer Date Recorded Within the last year, have y ou been afraid of your partner or ex-partner? No 03/22/2023 Within the last year, have y ou been humiliated or emotionally abused in other ways by your partner or ex-partner? No Within the last year, have y ou been kicked, hit, slapped, or otherwise physically hurt by your partner or ex-partner? No 03/22/2023 Within the last year, have y ou been raped or forced to have any kind of sexual activity by your partner or ex-partner? No 03/22/2023 AUDIT-C Answer Date Recorded Q1: How often do you have a drink containing alc ohol? Monthly or less 03/21/2023 Q2: How many drinks containi ng alcohol do you have on a typical day when you are drinking? 1 or 2 03/21/2023 Q3: How often do you have si x or more drinks on one occasion? Never 03/21/2023 PHQ-2 Answer Date Recorded Patient Health Questionnaire-2 Score 0 07/12/2023 Hunger Vital Sign Answer Date Recorded Within the past 12 months, y ou worried that your food would run out before you got the money to buy more. Never true 03/22/20 23 Within the past 12 months, t he food you bought just didn't last and you didn't have money to get more. Never true 03/22/2023 PRAPARE - Transportation Answer Date Re corded In the past 12 months, has l ack of transportation kept you from medical appointments or from getting medications? No 02/23 In the past 12 months, has l ack of transportation kept you from meetings, work, or from getting things needed for daily living? No 03/22/2023 Housing Stability Vital Sign Answer Ruben e Recorded In the last 12 months, was t here a time when you were not able to pay the mortgage or rent on time? No 03/22/2023 [address] of Places Lived in the Last Year Not on f ile 03/22/2023 In the last 12 months, was t here a time when you did not have a steady place to sleep or slept in a intermediate (including now)? No 03/22/2023 CAGE ASSESSMENT Answer Date Recorded Cage unable to access Not on file 03/21/2023 Cage max number of drinks Not on file 2022 Cage Beverages a week Not on file 03/21/2023 Have you ever felt you should CUT down on your d rinking? 0 03/21/2023 Have you been ANNOYED by people criticizing your drinking? 0 03/21/2023 Have you felt GUILTY about your drinking? 0 03/21/2023 Have you had a drink first t ade in the morning ([employer]) to steady your nerves or to get rid of a hangover? 0 03/21/2023 CAGE Questionnaire Score 0 023 Utilities Answer Date Recorded In the past 12 months has th e STYLIGHT, gas, oil, or water [employer] threatened to shut off services in your home? No 03/22/2023 Sex and Gender Information Value Date Recorded Sex Assigned at Male 03/26/2023 12:26 PM EST Legal Sex Male 6:05 PM EDT Gender Identity Male 03/26/2023 12:26 PM EST Sexual Orientation Not on file Last Filed Vital Signs Vital Sign Reading Time Taken Comments Blood Pressure 150/95 09/04/2023 3:10 PM EDT Pulse 82 09/04/2023 3:10 PM EDT Temperature 36.7 C (98 F) 09/04/2023 12:20 PM EDT Respiratory Rate 18 09/04/2023 3:10 PM EDT Oxygen Saturation 96% 09/04/2023 3:10 PM EDT Inhaled Oxygen Concentration - - Weight 104 kg (228 lb 9.9 oz) 09/04/2023 6:31 AM EDT Height 175.3 cm (5' 9 ) 09/04/2023 6:31 AM EDT Body Mass Index 33.76 09/04/2023 6:31 AM EDT Plan of Treatment Health Maintenance Due Date Last Done Comments [facility]-/Child/Adol SDOH Screenings 1961 [facility]- SDOH Screenings 08/17/1979 [facility]-Adult SDOH Screenings 08/17/1979 CT Colonography 2006 Colonoscopy 2006 FIT-DNA 2006 FIT 2006 FOBT 2006 Sigmoidoscopy 2006 [facility]-Colorectal Cancer Screening 2006 [facility]-Pneumococcal Vaccine: 50+ Years (1 of 1 - PCV) 08/17/2011 [facility]-DTaP,Tdap,and Td Vaccines (2 - Tdap) 07/22/2019 07/21/2009 [id number] Vaccine (1 - 2023- season) 2023 [facility]-Depression Screening 07/11/2024 07/12/2023 [facility]-Influenza Vaccine (#1) 2024 04/01/2018, [facility]-RSV Vaccine: 60+ Years or (1 - 1-dose 75+ series) 2036 [facility]-Hepatitis A Vaccines Aged Out 07/23/2017 No longer eligible based on patient's age to complete this topic [facility]-Zoster Vaccines Completed 10/21/2017, 8 [facility]-HIV Screening Completed 04/12/2023 [facility]-Hepatitis C Screening Completed 04/12/2023 [facility]-Obesity Intervention Completed 024, 07/12/2023, 04/23/2023, Additional history exists HPV Vaccines Aged Out No longer eligi ble based on patient's age to complete this topic [facility]-HIB Vaccines Aged Out No longer e ligible based on patient's age to complete this topic [facility]-IPV Vaccines Aged Out No longer e ligible based on patient's age to complete this topic [facility]-Rotavirus Vaccines Aged Out No lo nger eligible based on patient's age to complete this topic Procedures Procedure Name Priority Date/Time Associated Diagnosis Comments HEPATITIS C ANTIBODY - ED W/REFLEX TO HCV QUANT PCR STAT 04/12/2023 11:37 PM EST ED HIV 1/2 ANTIBODY/ANTIGEN SCREEN WITH REFLEX TO HIV I/II DIFFERENTIATION STAT 04/12/2023 11:37 PM EST from Last 3 Months or Most Recently Relevant to Health Maintenance Results * ED HIV 1/2 Antibody/Antigen Screen w/Reflex to HIV 1/2 Differentiation (04/12/2023 11:37 PM EST) HIV 1 & 2 Antibody/Antigen Screen Non Reactive Non Reactive 04/13/2023 2:35 AM EST [facility] Comment:Screening for HIV 1 & 2 antibodies, and P24 antigen is NONREACTIVE. No confirmatory testing is required. Blood Venous blood specimen / Unknown Venipuncture / Unknown 04/12/2023 11:37 PM EST 04/12/2023 11:44 PM EST [facility] BLOOD ORDERABLES [facility] [address] [place] [address] * Hepatitis C Antibody - ED (04/12/2023 11:37 PM EST) Hepatitis C Antibody Negative Negative 04/13/2023 12:31 AM EST [facility] Blood Venous blood specimen / Unknown Venipuncture / Unknown 04/12/2023 11:37 PM EST 04/12/2023 11:44 PM EST [facility] BLOOD ORDERABLES Final [facility] [address] [place] [address] from Last 3 Months or Most Recently Relevant to Health Maintenance Insurance [employer]THE[employer] Advance Directives * Full Code (Latest Code Status on File) Date Activated Date Inactivated Comments 09/04/2023 1:47 PM 09/04/2023 8:07 PM Question Answer Comments Patient has decision-making capacity? Yes * Full Code Date Activated Date Inactivated Comments 09/04/2023 1:38 PM 09/04/2023 1:47 PM Question Answer Comments Patient has decision-making capacity? Yes * Full Code Date Activated Date Inactivated Comments 03/27/2023 4:41 PM 04/01/2023 2:18 PM Question Answer Comments Patient has decision-making capacity? Yes * Full Code Date Activated Date Inactivated Comments 03/21/2023 11:53 PM 03/27/2023 4:41 PM Question Answer Comments Patient has decision-making capacity? 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
[2024-10-08 13:17] LABS: Hematocrit 41.4 % (42.0-52.0); Hemoglobin 13.9 g/dL (14.1-18.0); Immature Granulocytes % 0.5 %; Mean Corpuscular HGB Conc 33.6 g/dL (31.8-35.4); Mean Corpuscular Hemoglobin 29.6 pg (27.0-31.2); Mean Corpuscular Volume 88.3 fl (80-94); Nucleated Red Blood Cells % 0 %; Platelet Count 197 K/mm3 (142-424); Red Blood Count 4.69 M/mm3 (4.60-6.20); Red Cell Distribution Width-SD 38.7 fL; White Blood Count 6.6 K/mm3 (4.8-10.8)
[2024-10-08 13:44] LABS: Albumin Level 4.3 g/dl (3.5-5.0); Chloride 103 mmol/L (98-107); Potassium 3.5 mmoL/L (3.5-5.1); Sodium 138 mmol/L (136-145)
[2024-10-08 13:47] LABS: Alanine Aminotransferase 18 U/L (12-78); Alkaline Phosphatase 119 U/L (38-126); Anion Gap 11.5 mEq/L (5-15); Aspartate Amino Transferase 26 U/L (17-59); Bilirubin,Direct 0.2 mg/dl (0.0-0.4); Bilirubin,Indirect 0.8 mg/dL (0.0-0.9); Bilirubin,Total 1.0 mg/dl (0.2-1.3); Bilirubin,Unconjugated 0.8 mg/dL (0.0-1.1); Blood Urea Nitrogen 14 mg/dl (9-20); Calcium 9.0 mg/dl (8.4-10.2); Carbon Dioxide 27 mmol/L (22.0-30.0); Cholesterol 135 mg/dl (140-200); Creatinine,Serum 1.10 mg/dl (0.66-1.25); Estimated Glomerular Filt Rate 68 ml/min (>60); GFR (African American) 82 ML/MIN (>60); Glucose 94 mg/dl (74-100); Magnesium 1.9 mg/dl (1.6-2.3); Total Protein,Serum 6.9 g/dl (6.3-8.2); Triglycerides 113 mg/dl (30-150)
[2024-10-08 13:48] LABS: HDL Cholesterol 46 mg/dl (40-60)
[2024-10-08 14:03] LABS: Free T4 (Free Thyroxine) 1.30 ng/dl (0.78-2.19)
[2024-10-08 14:17] LABS: Thyroid Stimulating Hormone 0.79 uIU/mL (0.465-4.68)
== END 2024-10-08 23:59 | disposition home or self-care (01) ==
LOC: LAB 11:41
PROVIDERS: PCP Family Medicine; Visit Provider Physician Assistant
DX: I48.0 Paroxysmal atrial fibrillation (principal); I25.810 Atherosclerosis of coronary artery bypass graft(s) without angina pectoris; I10 Essential (primary) hypertension
CPT/HCPCS: 36415; 80048; 80061; 80076; 83735; 84439; 84443; 85025